=== PATIENT | female | born 2000 | race African-American/Black ===

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

== ENCOUNTER 2021-02-03 00:05 | Emergency (ER) | payer MEDICAID, SELFPAY ==
[2021-02-03 00:06] VITALS: BP 146/82; PULSE 103; RESP 36; TEMP 36.1; O2SAT 100; BMI 39.9
--- NOTE | 2021-02-03 00:14 | EKG12_ITS ---
Test Reason : SOB Blood Pressure : / mmHG Vent. Rate : 094 BPM Atrial Rate : 094 BPM P-R Int : 158 ms QRS Dur : 084 ms QT Int : 372 ms P-R-T Axes : 052 027 016 degrees QTc Int : 465 ms Normal sinus rhythm Normal ECG Confirmed by CHLOE SIDDIQI MD ([id number]), slot editor JESUS LAO ([id number]) on 02/03/2021 11:24:04 AM Referred By: MATHEW Confirmed By:CHLOE SIDDIQI MD
[2021-02-03] MEDS: predniSONE 20 MG Tablet 60 MG PO (00:22)
--- NOTE | 2021-02-03 00:26 | EDS_ITS ---
HPI History of Present Illness Chief Complaint: Cold Sx Informant: patient Onset/Context/Timing Onset: Weeks Context: gradual Timing: Intermittent Quality: Positive for Wheezing Current Severity: Moderate Maximum Severity: Moderate Worsened by: Coughing Relieved by: Albuterol Associated Symptoms cough and green sputum Narrative Narrative: Patient presents with cough, shortness of breath, and pleuritic pain. She states that she has had a cough for about 2 weeks. She states it seems like it was getting worse. She has been having productive sputum. She states that today, she noticed there was scant blood mixed with the sputum. She states that she also had right upper lung pain when she takes a deep breath. She does not think she had fever. She does have underlying history of asthma. The patient was Covid positive in July of this year. PFSH PFS Medical History ADHD Anemia Asthma Chest pain Fatigue Severe headache Shortness of breath Home Medications Celexa 02/03/21 [History Last Taken Unknown] Vistaril 02/03/21 [History Last Taken Unknown] azithromycin 250 mg PO DAILY #4 tablet 02/03/21 [Rx Last Taken Unknown] prednisone 60 mg PO DAILY #15 tablet 02/03/21 [Rx Last Taken Unknown] Allergy/AdvReac Type Severity Reaction Status Date / Time No Known Allergies Allergy Verified 07/27/20 13:49 Family History Mother Lupus Father Sleep apnea Surgical History History of tonsillectomy S/P left knee arthroscopy S/P tonsillectomy Social History Smoking Status: Current every day smoker tobacco type: cigarettes ROS ROS ED Constitutional Constitutional ED: Denies chills or fever(s) Eyes Eyes: Denies blurry vision or change in vision ENT ENT ED: Denies ear pain or sore throat Cardiovascular Cardiovascular: Reports chest pain; Denies palpitations Respiratory/Chest Respiratory/Chest: Reports cough, dyspnea and sputum; Denies dyspnea on exertion Gastrointestinal Gastrointestinal: Denies abdominal pain, nausea or vomiting Genitourinary Genitourinary ED: Denies dysuria or urinary frequency Musculoskeletal Musculoskeletal: Denies arthralgias or myalgias Integumentary Denies rash Neurologic Neurologic: Denies headache(s) or paresthesias Psychiatric Psychiatric: Denies anxiety or depression Endocrine Endocrinology: Denies polydipsia or polyuria Allergic/Immunologic Allergic/Immunologic ED: Denies urticaria EXAM Physical Exam Const Vital Signs: 02/03/21 00:06 02/03/21 00:27 02/03/21 00:31 Temperature 97.0 F L Temperature Source Temporal Pulse Rate 103 H 96 Respiratory Rate 36 H 30 H Respiratory Effort Short of Breath Respiratory Depth Normal Respiratory Pattern Tachypnea Tachypnea Blood Pressure 146/82 H Blood Pressure Mean 103 Pulse Ox 100 Oxygen Delivery Method Room Air Room Air 02/03/21 00:44 Temperature Temperature Source Pulse Rate 92 Respiratory Rate 39 H Respiratory Effort Respiratory Depth Respiratory Pattern Tachypnea Blood Pressure Blood Pressure Mean Pulse Ox Oxygen Delivery Method Positive well nourished and well developed General Appearance ED: well developed HEENT Reports normocephalic, head/scalp atraumatic and moist mucous membranes Eyes PERRL and EOMs intact bilaterally Neck no lymphadenopathy and supple General: Negative for tenderness Chest Wall inspection of chest normal Resp normal respiratory effort Auscultation: wheezes Cardio regular rate, regular rhythm and no murmurs GI normal to inspection, nondistended, normoactive bowel sounds Palpation: Negative for tender, guarding or rebound tenderness present Back/Spine no CVA tenderness Cervical Spine: Negative for cervical spine tenderness Thoracic Spine / Upper Back: Negative for thoracic spinal tenderness Extremity normal to inspection General Extremety ED: Negative for tenderness Neuro oriented x3 and CN's II-XII intact bilaterally Neuro Narrative: No focal deficits appreciated. Sensorium / Orientation: alert Psych mental status grossly normal Skin no rashes or lesions noted, no wounds and skin turgor normal MDM MDM MDM Narrative Medical decision making narrative: Patient presents with cough shortness of breath. She does have diffuse wheezing in all lung seth. EKG was obtained on arrival. It was sinus rhythm. There is normal axis and intervals. There is no acute ischemic change. I did obtain a D-dimer given the patient's tachycardia and pleuritic pain. This was negative. She does have a mild leukocytosis. Chest x-ray does not show evidence of a focal infiltrative process. With her persistent symptoms and history of underlying lung disease, I am going to treat her with Zithromax. She is given her first dose here. She will be kept on prednisone. The patient will be discharged home. Impression 1. Acute bronchitis with bronchospasm Lab Data Attestation: I reviewed the patient's lab results. Labs: Laboratory Results - last 24 hr 02/03/21 02/03/21 02/03/21 00:25 00:25 00:25 WBC 12.3 H RBC 5.52 H Hgb 12.5 Hct 40.3 MCV 73.0 L MCH 22.6 L MCHC 31.0 L RDW Std Deviation 41.5 RDW Coeff of Nancy 15.9 H Plt Count 309 MPV 9.7 Immature Gran % (Auto) 0.500 Neut % (Auto) 53.6 Lymph % (Auto) 37.9 [place] % (Auto) 6.0 Eos % (Auto) 1.5 Baso % (Auto) 0.5 Absolute Neuts (auto) 6.6 Absolute Lymphs (auto) 4.64 H Nucleated RBC % 0 D-Dimer Quant (PE/DVT) 0.34 Sodium 140 Potassium 3.7 Chloride 106 Carbon Dioxide 27.0 Anion Gap 7 BUN 10 Creatinine 0.70 Estim Creat Clear Calc 135.09 Est GFR (MDRD) Af Amer 139 Est GFR (MDRD) Non-Af 115 BUN/Creatinine Ratio 14.3 Glucose 90 Calcium 8.5 Radiography Chest X-Ray - ED: 1 View, Read by ED Physician, Unchanged, Heart, Lungs, Mediastinum, Bony Structures and No Infiltrates Discharge Plan Triage Chief Complaint: Cold Sx ED Provider: Cesar Thompson Dx/Rx/DC Orders Instructions: ED Bronchitis with Wheezing (Adult) Prescriptions: New azithromycin [azithromycin] 250 MG tablet 250 mg PO DAILY Qty: 4 RF: 0 prednisone 20 MG tablet 60 mg PO DAILY Qty: 15 RF: 0 No Action Celexa RF: 0 Vistaril RF: 0 Primary Care Provider: NOT,DEFINED Referrals: NOT,DEFINED [Primary Care Provider] -
[2021-02-03 00:27] VITALS: O2SAT 100
--- NOTE | 2021-02-03 00:30 | RAD_ITS ---
STUDY: X-RAY CHEST REASON FOR EXAM: Female, 20 years old. cough TECHNIQUE: Single AP portable view of the chest. COMPARISON: 04/13/2020. FINDINGS: The lungs are clear and expanded. There is no demonstrated pleural abnormality. Normal size heart. Normal mediastinum and dot. Normal visualized pulmonary arteries. Normal visualized aortic arch and descending thoracic aorta. Normal visualized thoracic spine. Normal visualized ribs, clavicles, and shoulders. There is no demonstrated abnormality of the visualized soft tissue structures of the upper abdomen. RAD/Chest 1 View (Portable) IMPRESSION: Normal x-ray examination of the chest. Electronically Signed: Raisa Ceron MD at 1:02 EDT , Service support ,
[2021-02-03 00:31] VITALS: PULSE 96; RESP 30
[2021-02-03] MEDS: Ipratropium/Albuterol Sulfate 3 ML AMPUL.NEB INHALATION (00:31)
[2021-02-03 00:36] LABS: Absolute Lymphocyte Count 4.64 X10^3/uL (0.83-4.51); Absolute Neutrophil Count 6.6 X10^3/uL (2.0-7.7); Basophil# 0.06 X10^3/uL; Basophil% 0.5 % (0-1); Eosinophil# 0.18 X10^3/uL; Eosinophils% 1.5 % (0-5); Hematocrit 40.3 % (37-47); Hemoglobin 12.5 g/dL (12.0-15.0); Lymphocyte # 4.64 X10^3/ul (0.83-4.51); Lymphocyte % 37.9 % (19-41); Mean Corpuscular Hgb 22.6 pg (27.0-32.0); Mean Platelet Vol. 9.7 fl (6.2-12.0); Monocyte# 0.74 X10^3/uL; NRBC Flagged by Analyzer 0 % (0-5); Neutrophil # 6.57 X10^3/uL (2.7-7.7); Neutrophil % 53.6 % (47-70); Platelet Count 309 K/mm3 (150-450); RBC Distribution Width CV 15.9 % (11.6-14.6); RBC Distribution Width SD 41.5 fl (35.1-43.9); Red Blood Count 5.52 M/mm3 (4.2-5.4); White Blood Count 12.3 K/mm3 (4.4-11.0)
[2021-02-03] MEDS: Albuterol 2.5 MG/3 ML VIAL.NEB. INHALATION ×3 (00:43→00:46)
[2021-02-03 00:44] VITALS: PULSE 97; RESP 23
[2021-02-03 00:48] LABS: D-Dimer Quantitative (DVT/PE) 0.34 FEU/ug/m (0.27-0.49)
[2021-02-03 00:49] LABS: Anion Gap 7 (5-15); BUN 10 mg/dL (7-18); BUN/Creat Ratio 14.3 RATIO (10-20); Calcium,Total 8.5 mg/dL (8.5-10.1); Chloride 106 mmol/L (98-107); EST Glomerular Filtration Rate 115 mL/min (>60); Est Glom Filt Rate - Afr Amer 139 mL/min (>60); Estimated Creatinine Clearance 135.09 ml/min; Glucose 90 mg/dL (74-106); Potassium 3.7 mmol/L (3.5-5.1); Sodium Level 140 mmol/L (136-145)
[2021-02-03 01:00] LABS: Internal QC Validated? YES +Cl - CLEAR BKGD; Pregnancy, Serum, hCG Quali. NEGATIVE Negative
[2021-02-03] MEDS: Azithromycin 250 MG Tablet 500 MG PO (01:08)
[2021-02-03 01:11] VITALS: BP 145/74; PULSE 90; RESP 26; O2SAT 98
== END 2021-02-03 01:53 | disposition home or self-care (01) ==
LOC: ED 01:15
PROVIDERS: Emergency Provider Emergency Medicine
DX: J20.9 Acute bronchitis, unspecified (principal); F17.210 Nicotine dependence, cigarettes, uncomplicated; F90.9 Attention-deficit hyperactivity disorder, unspecified type; Z86.16 Personal history of COVID-19
CPT/HCPCS: 71045; 80048; 84703; 85025; 85379; 93005; 94640; 99285; A4216

== ENCOUNTER 2021-02-26 23:27 | Emergency (ER) | payer MEDICAID, SELFPAY ==
[2021-02-26 23:28] VITALS: BP 153/91; PULSE 100; RESP 18; TEMP 36.6; O2SAT 99; BMI 36.9
--- NOTE | 2021-02-27 | ED.VIS.FEGU ---
HPI HPI - Female History of Present Illness Chief Complaint: Complaint Informant: patient Narrative Narrative: Patient is a 20-year-old female who presents to the emergency department for urinary frequency and dysuria. She is concerned that she is also . She states that she is taken 2 tests and they were inconclusive. Her last menstrual period was January 22. She states she is very regular. She is attempted to get . She denies any abdominal pain. No back pain. No fevers or chills. No nausea vomiting. She has not been taking anything for her symptoms. No known aggravating relieving factors. Patient does not take medications for anything. She has a history of one that ended in miscarriage. [facility] Medical History (Updated 02/27/21 @ 00:[address] Zhao Orta DO) ADHD Anemia Asthma Chest pain Fatigue Severe headache Shortness of breath Home Medications Celexa 02/03/21 [History Last Taken Unknown] Vistaril 02/03/21 [History Last Taken Unknown] azithromycin 250 mg PO DAILY #4 tablet 02/03/21 [Rx Last Taken Unknown] prednisone 60 mg PO DAILY #15 tablet 02/03/21 [Rx Last Taken Unknown] cephalexin 500 mg PO BID 7 Days #14 cap 02/27/21 [Rx Last Taken Unknown] Allergy/AdvReac Type Severity Reaction Status Date / Time No Known Allergies Allergy Verified 02/26/21 23:30 Family History Mother Lupus Father Sleep apnea Surgical History History of tonsillectomy S/P left knee arthroscopy S/P tonsillectomy Social History Smoking Status: Current every day smoker tobacco type: cigarettes ROS ROS ED Constitutional Constitutional ED: Denies chills or fever(s) Eyes Eyes: Denies change in vision ENT ENT ED: Denies epistaxis or rhinorrhea Cardiovascular Cardiovascular: Denies chest pain or palpitations Respiratory/Chest Respiratory/Chest: Denies cough, dyspnea or dyspnea on exertion Gastrointestinal Gastrointestinal: Denies abdominal pain, diarrhea, nausea or vomiting Genitourinary Genitourinary ED: Reports dysuria and urinary frequency; Denies hematuria Musculoskeletal Musculoskeletal: Denies back pain or neck pain Integumentary Denies rash Neurologic Neurologic: Denies dizziness, headache(s) or weakness EXAM Physical Exam Const Vital Signs: 02/26/21 23:28 Temperature 97.9 F Temperature Source Temporal Pulse Rate 100 Respiratory Rate 18 Blood Pressure 153/91 H Blood Pressure Mean 111 Pulse Ox 99 Oxygen Delivery Method Room Air Positive well nourished and well developed General Appearance ED: well developed and NAD HEENT Reports normocephalic, head/scalp atraumatic and moist mucous membranes Eyes PERRL and EOMs intact bilaterally Neck supple General: Negative for tenderness Resp normal respiratory effort and clear to auscultation bilaterally Auscultation: Negative for rales, rhonchi or wheezes Cardio regular rate, regular rhythm and no murmurs GI normal to inspection, nondistended, normoactive bowel sounds and non-tender Palpation: soft; Negative for guarding or rebound tenderness present Back/Spine no CVA tenderness Extremity normal to inspection General Extremety ED: Negative for edema or tenderness General Extremity: Negative for edema Neuro no sensory deficits noted Sensorium / Orientation: alert Motor Exam: strength 5/5 throughout Psych mental status grossly normal Skin no rashes or lesions noted MDM MDM MDM Narrative Medical decision making narrative: Patient presents to the emergency department for urinary frequency and dysuria. She also had a inconclusive test and would like this repeated. On arrival to the ED she is mildly hypertensive otherwise normal vital signs. She is in no acute distress. No systemic symptoms. Will check urinalysis as well as urine test. Patient's urine test was negative. She does have bacteria, leukocyte esterase as well as a few white blood cells. We will treat this as she is symptomatic. She is given first dose of Keflex here. Sent home with a prescription for this. She is given referral for PCP. Return precautions reviewed. She understands and is agreeable with this plan. Lab Data Labs: Laboratory Results - last 24 hr 02/26/21 Unknown Urine Color Yellow Urine Clarity Clear Urine pH 6.0 Ur Specific Curtis 1.025 Urine Protein 15 H Urine Glucose (UA) Normal Urine Ketones Negative Urine Occult Blood Negative Urine Nitrite Negative Urine Bilirubin Negative Urine Urobilinogen 1 H Ur Leukocyte Esterase 25 H Urine RBC 0-5 SEEN Urine WBC 5-10 SEEN Ur Squamous Epith Cells 0-5 SEEN Ur Transition Epith Cell 0-5 SEEN Amorphous Sediment RARE Urine Bacteria 1+ Urine Mucus 2+ Urine Test Negative Discharge Plan Triage Chief Complaint: Complaint ED Provider: Zhao Orta Dx/Rx/DC Orders Clinical Impression: UTI (urinary tract infection) Instructions: Urinary Tract Infections in Women Prescriptions: New cephalexin 500 mg capsule 500 mg PO BID 7 Days Qty: 14 RF: 0 No Action Celexa RF: 0 Vistaril RF: 0 azithromycin [azithromycin] 250 MG tablet 250 mg PO DAILY Qty: 4 RF: 0 prednisone 20 MG tablet 60 mg PO DAILY Qty: 15 RF: 0 Primary Care Provider: Care Physician,No Primary Referrals: Vincenzo Bobby MD [NON-STAFF] - 3-5 Days Care Physician,No Primary [Primary Care Provider] - Disposition Disposition: Home, Self Care
[2021-02-27 00:03] LABS: Color, Urine Yellow (Yellow); Glucose, Dipstick Normal (Normal); Ketone-Dipstick Negative (Negative); Leukocyte Esterase-Dipstick 25 /ul (Negative); Nitrite-Dipstick Negative (Negative); Occult Blood-Urine Negative /ul (Negative); Protein-Dipstick 15 mg/dl (Negative); Specific Gravity, Urine 1.025 (1.002-1.030); Urine Bilirubin Dipstick Negative (Negative); Urine Clarity Clear (Clear); Urine Urobilinogen 1 mg/dl (Normal)
[2021-02-27 00:08] LABS: Internal QC Validated? YES +Cl - CLEAR BKGD; Pregnancy, Urine Negative Negative
[2021-02-27 00:18] LABS: Red Blood Cells-Urine 0-5 SEEN /hpf (0-5); Squamous Epithelial Cells - UA 0-5 SEEN /hpf (5-10); Transitional Epithelial - Ur 0-5 SEEN /hpf (0-5); White Blood Cells 5-10 SEEN /hpf (0-5)
[2021-02-27 00:19] LABS: Amorphous Sediment RARE; Bacteria 1+ /hpf (None Seen); Mucous, Urine 2+ /hpf (<or=2+)
[2021-02-27] MEDS: Cephalexin 250 MG Capsule 500 MG PO (00:34)
== END 2021-02-27 00:35 | disposition home or self-care (01) ==
PROVIDERS: Emergency Provider Emergency Medicine
DX: N39.0 Urinary tract infection, site not specified (principal); F17.210 Nicotine dependence, cigarettes, uncomplicated; D64.9 Anemia, unspecified; F90.9 Attention-deficit hyperactivity disorder, unspecified type; J45.909 Unspecified asthma, uncomplicated; Z79.52 Long term (current) use of systemic steroids
CPT/HCPCS: 81001; 81025; 99283

== ENCOUNTER 2021-04-29 23:26 | Emergency (ER) | payer MEDICAID, SELFPAY ==
[2021-04-29 23:27] VITALS: BP 133/75; PULSE 120; RESP 18; TEMP 36.4; O2SAT 99; BMI 38.4
== END 2021-04-30 00:43 ==
LOC: ED 04-30 02:24
DX: R06.02 Shortness of breath (principal); R51.9 Headache, unspecified; J02.9 Acute pharyngitis, unspecified

== ENCOUNTER → 2021-05-23 17:20 | Outpatient (CLI) | payer MEDICAID, SELFPAY ==
[2021-05-23 17:49] LABS: Amphetamine Urine VISTA NEGATIVE (<1000 ng/mL); Barbiturate Urine VISTA NEGATIVE (< 200 ng/mL); Benzodiazepine Urine VISTA NEGATIVE (< 200 ng/mL); Cocaine Urine VISTA NEGATIVE (< 300 ng/mL); Ecstacy Urine VISTA NEGATIVE (< 500 ng/mL); Methadone Urine VISTA NEGATIVE (< 300 ng/mL); PCP Urine VISTA NEGATIVE (< 25 ng/mL); THC Urine VISTA POSITIVE (< 50 ng/mL); Vista UDS pH Range 5
[2021-05-26 22:06] LABS: Chlamydia By Nucleic Acid AMP Negative (Negative)
[2021-05-27 07:55] LABS: Gonococcus By Nucleic Acid AMP Negative (Negative)
== END ==
PROVIDERS: Referring Provider Obstetrics & Gynecology; Visit Provider Obstetrics & Gynecology
DX: Z34.90 Encounter for supervision of normal pregnancy, unspecified, unspecified trimester (principal)
CPT/HCPCS: 80307; 87086; 87088; 87491; 87591

== ENCOUNTER → 2021-06-12 11:00 | Outpatient (CLI) | payer MEDICAID, SELFPAY ==
[2021-06-12 12:05] LABS: NATERA MAILED SPECIMEN
== END ==
PROVIDERS: Referring Provider Obstetrics & Gynecology; Visit Provider Obstetrics & Gynecology
DX: Z34.81 Encounter for supervision of other normal pregnancy, first trimester (principal)
CPT/HCPCS: 36415

== ENCOUNTER → 2021-06-20 14:36 | Outpatient (CLI) | payer MEDICAID, SELFPAY ==
[2021-06-20 15:46] LABS: Absolute Lymphocyte Count 3.44 X10^3/uL (0.83-4.51); Absolute Neutrophil Count 5.6 X10^3/uL (2.0-7.7); Basophil# 0.04 X10^3/uL; Basophil% 0.4 % (0-1); Eosinophil# 0.08 X10^3/uL; Eosinophils% 0.8 % (0-5); Hematocrit 35.9 % (37-47); Hemoglobin 11.6 g/dL (12.0-15.0); Lymphocyte # 3.44 X10^3/ul (0.83-4.51); Lymphocyte % 35.1 % (19-41); Mean Corp Hgb Conc 32.3 g/dL (32-36); Mean Corpuscular Hgb 23.3 pg (27.0-32.0); Mean Corpuscular Volume 72.2 fL (81-99); Mean Platelet Vol. 10.4 fl (6.2-12.0); Monocyte# 0.61 X10^3/uL; Monocyte% 6.2 % (0-10); NRBC Flagged by Analyzer 0 % (0-5); Neutrophil # 5.61 X10^3/uL (2.7-7.7); Neutrophil % 57.3 % (47-70); Platelet Count 273 K/mm3 (150-450); RBC Distribution Width CV 16.2 % (11.6-14.6); RBC Distribution Width SD 41.5 fl (35.1-43.9); Red Blood Count 4.97 M/mm3 (4.2-5.4); White Blood Count 9.8 K/mm3 (4.4-11.0)
[2021-06-20 15:54] LABS: NATERA MAILED SPECIMEN
[2021-06-20 16:20] LABS: Glucose Challenge Gest 1H 50g 79 mg/dL (70-140)
[2021-06-23 09:43] LABS: HIV - WCH Non-Reactive (Nonreactive); Hepatitis B Surface Antigen Non-Reactive (Nonreactive); Hepatitis C Antibody Non-Reactive (Nonreactive); Rubella IgG Reactive (Nonreactive); Syphilis Antibodies Non-reactive
== END ==
PROVIDERS: Obstetrics & Gynecology; Visit Provider Obstetrics & Gynecology
DX: Z34.81 Encounter for supervision of other normal pregnancy, first trimester (principal); Z31.430 Encounter of female for testing for genetic disease carrier status for procreative management
CPT/HCPCS: 36415; 82950; 83021; 85025; 85660; 86703; 86762; 86780; 86803; 86850; 86900; 86901; 87340

== ENCOUNTER 2021-07-27 16:45 | Emergency (ER) | payer MEDICAID, SELFPAY ==
[2021-07-27 16:46] VITALS: BP 111/63; PULSE 91; RESP 18; TEMP 36.9; O2SAT 99; BMI 45.6
[2021-07-27 18:36] LABS: Absolute Lymphocyte Count 3.33 X10^3/uL (0.83-4.51); Absolute Neutrophil Count 8.4 X10^3/uL (2.0-7.7); Basophil# 0.02 X10^3/uL; Basophil% 0.2 % (0-1); Eosinophil# 0.07 X10^3/uL; Eosinophils% 0.6 % (0-5); Hematocrit 35.5 % (37-47); Hemoglobin 11.7 g/dL (12.0-15.0); Lymphocyte # 3.33 X10^3/ul (0.83-4.51); Lymphocyte % 26.4 % (19-41); Mean Corpuscular Hgb 23.9 pg (27.0-32.0); Mean Corpuscular Volume 72.6 fL (81-99); Monocyte# 0.75 X10^3/uL; NRBC Flagged by Analyzer 0 % (0-5); Neutrophil # 8.38 X10^3/uL (2.7-7.7); Neutrophil % 66.4 % (47-70); Platelet Count 250 K/mm3 (150-450); RBC Distribution Width CV 15.3 % (11.6-14.6); RBC Distribution Width SD 39.8 fl (35.1-43.9); Red Blood Count 4.89 M/mm3 (4.2-5.4); White Blood Count 12.6 K/mm3 (4.4-11.0)
[2021-07-27 18:48] LABS: ALB/GLOB Ratio 0.7 RATIO (0.9-2.4); AST(SGOT) 8 U/L (15-37); Alanine Aminotransfer ALT/SGPT 21 U/L (13-56); Albumin, Serum 3.1 g/dL (3.2-5.0); Alkaline Phosphatase 60 U/L (45-117); Anion Gap 8 (5-15); BUN 5 mg/dL (7-18); BUN/Creat Ratio 8.9 RATIO (10-20); Calcium,Total 8.6 mg/dL (8.5-10.1); Chloride 108 mmol/L (98-107); Creatinine, Serum 0.56 mg/dL (0.55-1.02); EST Glomerular Filtration Rate 146 mL/min (>60); Est Glom Filt Rate - Afr Amer 176 mL/min (>60); Estimated Creatinine Clearance 168.87 ml/min; Globulin 4.2 g/dL (2.2-4.2); Glucose 75 mg/dL (74-106); Potassium 3.6 mmol/L (3.5-5.1); Protein, Total 7.3 g/dL (6.4-8.2); Sodium Level 141 mmol/L (136-145)
--- NOTE | 2021-07-27 20:15 | EDS_ITS ---
HPI History of Present Illness Chief Complaint: Dizziness Detail of Chief Complaint: Dizziness, which patient defines as lightheadedness Informant: patient Onset/Context/Timing Onset: Today (Early this morning) and Yesterday (2 episodes last evening) Context: Sudden Onset Timing: Intermittent (10 to 20 minutes) Quality: Lightheaded, change in vision, tingling in extremities Location: Residents Current Severity: Gone Maximum Severity: Moderate Worsened by: Unknown Relieved by: Improves if patient is in supine position or sitting on floor Associated Symptoms Associated Symptoms: None Narrative Narrative: Patient is a 20-year-old G1, P0 Ab0 female who is in her second trimester and presents after discussion with her OB. She had 2 epi sodes where she became lightheaded and lasted 10 to 20 minutes. She states that she felt nauseous, warm lightheaded. She sat down so she would not pass out. She states her vision was static. She then states she looked at her phone he could see the clock and not how she knows how long it lasted. The episode earlier this morning lasted 10 minutes. She denies fever, chills night sweats. She denies double vision. She denies loss of hearing. She states she had bilateral ringing of her ears. She denied rhinorrhea, epistaxis postnasal drainage or sore throat. She denied chest pain. She denied shortness of breath. She denied vomiting or diarrhea. She denied black or maroon-colored stool. She has no urologic symptoms. Prior similar symptoms: No Recent Illness/Hospitalization: No [facility] Medical History ADHD Anemia Asthma Chest pain Fatigue Severe headache Shortness of breath Home Medications vitamin no.76-iron,carbonyl 29 mg iron-folic acid 1 mg tablet 1 tab PO DAILY #30 tab 05/13/21 [Rx Last Taken Unknown] promethazine 12.5 mg tablet 12.5 mg PO TID PRN #30 tab 05/13/21 [Rx Last Taken Unknown] ondansetron HCl 4 mg tablet 4 mg PO Q4H #60 tab 05/23/21 [Rx Last Taken Unknown] ferrous sulfate 142 mg (45 mg iron) tablet,extended release 142 mg PO DAILY 30 Days #30 tab 07/16/21 [Rx Last Taken Unknown] cephalexin 500 mg PO Q6 #28 capsule 07/27/21 [Rx Last Taken Unknown] Allergy/AdvReac Type Severity Reaction Status Date / Time No Known Allergies Allergy Verified 07/27/21 16:46 Family History Mother Lupus Sjogrens syndrome Father Sleep apnea Grandfather Brain cancer Seizures Grandmother COPD (chronic obstructive pulmonary disease) Leukemia Surgical History History of tonsillectomy S/P left knee arthroscopy S/P tonsillectomy Social History household members: family current occupational status: unemployed pets and animals: Yes Smoking Status: Former smoker second hand exposure: Yes alcohol intake: current substance use type: marijuana seatbelt use: always do you feel safe at home: Yes additional social history: BF- Deauje Artiflex ROS ROS ED Constitutional Constitutional ED: Denies chills, fever(s), subjective, sweats or weight loss Eyes Eyes: Denies blurry vision, change in vision or diplopia ENT ENT ED: Reports other Details: Tinnitus ; Denies ear pain, rhinorrhea or sore throat Cardiovascular Cardiovascular: Denies chest pain, orthopnea, palpitations or racing heartbeat Respiratory/Chest Respiratory/Chest: Denies cough, dyspnea, dyspnea on exertion or orthopnea Gastrointestinal Gastrointestinal: Reports nausea; Denies abdominal pain, diarrhea, melena or vomiting Genitourinary Genitourinary ED: Denies dysuria, hematuria or urinary frequency Musculoskeletal Musculoskeletal: Denies arthralgias, back pain, myalgias or neck pain Integumentary Denies rash Neurologic Neurologic: Reports paresthesias and weakness; Denies headache(s) Endocrine Endocrinology: Denies polydipsia, polyphagia or polyuria EXAM Physical Exam Const Vital Signs: 07/27/21 16:46 07/27/21 17:54 07/27/21 20:27 Temperature 98.4 F Temperature Source Temporal Pulse Rate 91 Pulse Rate [Lying] 88 Pulse Rate [Sitting] 85 Pulse Rate [Standing] 110 H Respiratory Rate 18 Respiratory Effort Normal Blood Pressure 111/63 Blood Pressure [Lying] 126/66 H Blood Pressure [Sitting] 128/84 H Blood Pressure [Standing] 126/77 H Blood Pressure Mean 79 Blood Pressure Mean [Lying] 86 Blood Pressure Mean [Sitting] 98 Blood Pressure Mean [Standing] 93 Pulse Ox 99 Oxygen Delivery Method Room Air Positive well nourished, well developed and obese General Appearance ED: well developed and NAD; Negative for cyanotic or diaphoretic Nutritional Appearance: obese HEENT Reports TM's clear and moist mucous membranes Negative for trauma or tenderness Tympanic Membrane ED: Yes TM's clear Eyes PERRL and EOMs intact bilaterally General Eye ED: Negative for pale conjunctiva or scleral icterus Neck no lymphadenopathy, supple and no JVD General: Negative for tenderness Resp normal respiratory effort and clear to auscultation bilaterally Cardio regular rate, regular rhythm, S1 normal heart sound, S2 normal heart sound and no murmurs GI normal to inspection, nondistended, normoactive bowel sounds, non-tender and non-distended Palpation: soft Back/Spine no CVA tenderness General Back: CVA tenderness Cervical Spine: Negative for cervical spine tenderness Thoracic Spine / Upper Back: Negative for thoracic spinal tenderness or paraspinal muscle tenderness Extremity normal to inspection General Extremety ED: Negative for edema or tenderness General Extremity: Negative for edema Neuro oriented x3 and CN's II-XII intact bilaterally Sensorium / Orientation: alert Motor Exam: strength 5/5 throughout Psych mental status grossly normal Skin no rashes or lesions noted and no wounds MDM MDM MDM Narrative Medical decision making narrative: Patient with symptoms suggestive of presyncopal/vasovagal. This may be due to dehydration, and poor caloric intake. On certain regarding this patient's symptoms of vision looking static which she described as the TV screen is all squiggly. Lab Data Attestation: I reviewed the patient's lab results. Lab results narrative: Urine reveals bacteria. Since she is culture was sent and she was started on cephalexin. Labs: Laboratory Results - last 24 hr 07/27/21 07/27/21 07/27/21 18:20 18:20 20:39 WBC 12.6 H RBC 4.89 Hgb 11.7 L Hct 35.5 L MCV 72.6 L MCH 23.9 L MCHC 33.0 RDW Std Deviation 39.8 RDW Coeff of Nancy 15.3 H Plt Count 250 MPV 10.0 Immature Gran % (Auto) 0.400 Neut % (Auto) 66.4 Lymph % (Auto) 26.4 [place] % (Auto) 6.0 Eos % (Auto) 0.6 Baso % (Auto) 0.2 Absolute Neuts (auto) 8.4 H Absolute Lymphs (auto) 3.33 Nucleated RBC % 0 Sodium 141 Potassium 3.6 Chloride 108 H Carbon Dioxide 25.0 Anion Gap 8 BUN 5 L Creatinine 0.56 Estim Creat Clear Calc 168.87 Est GFR (MDRD) Af Amer 176 Est GFR (MDRD) Non-Af 146 BUN/Creatinine Ratio 8.9 L Glucose 75 Calcium 8.6 Total Bilirubin 0.10 L AST 8 L ALT 21 Alkaline Phosphatase 60 Total Protein 7.3 Albumin 3.1 L Globulin 4.2 Albumin/Globulin Ratio 0.7 L Urine Color Yellow Urine Clarity Clear Urine pH 7.0 Ur Specific [place] 1.015 Urine Protein 15 H Urine Glucose (UA) Normal Urine Ketones 5 H Urine Occult Blood Negative Urine Nitrite Negative Urine Bilirubin Negative Urine Urobilinogen Normal Ur Leukocyte Esterase 25 H Urine RBC 0 SEEN Urine WBC 0-5 SEEN Ur Squamous Epith Cells 0-5 SEEN Urine Bacteria 2+ Urine Mucus 0 SEEN Discharge Plan Triage Chief Complaint: Dizziness ED Provider: Denys Boyle Dx/Rx/DC Orders Clinical Impression: Near syncope, Orthostatic dizziness, Urinary tract infection affecting care of mother in second trimester, antepartum Instructions: Urinary Tract Infections in Women, ED Dizziness, Uncertain Cause, ED Near-Fainting, Uncertain Cause Prescriptions: New cephalexin [cephalexin] 500 MG capsule 500 mg PO Q6 Qty: 28 RF: 0 No Action promethazine 12.5 mg tablet 12.5 mg PO TID PRN (Reason: nausea and vomiting) Qty: 30 RF: 1 PNV 29-1 29 mg iron- 1 mg tablet 1 tab PO DAILY Qty: 30 RF: 12 ondansetron HCl [Zofran] 4 mg tablet 4 mg PO Q4H Qty: 60 RF: 3 Slow Fe 142 mg (45 mg iron) tablet extended release 142 mg PO DAILY 30 Days Qty: 30 RF: 6 Primary Care Provider: Care Physician,No Primary Referrals: Care Physician,No Primary [Primary Care Provider] - Doctor,Your [STAFF PHYSICIAN] - 3-5 Days Disposition Disposition: Home, Self Care
[2021-07-27 20:27] VITALS: BP 126/66; BP 126/77; BP 128/84; PULSE 110; PULSE 85; PULSE 88
[2021-07-27 20:49] LABS: Mucous, Urine 0 SEEN /hpf (<or=2+); Red Blood Cells-Urine 0 SEEN /hpf (0-5)
[2021-07-27 21:05] LABS: Color, Urine Yellow (Yellow); Glucose, Dipstick Normal (Normal); Ketone-Dipstick 5 mg/dl (Negative); Leukocyte Esterase-Dipstick 25 /ul (Negative); Nitrite-Dipstick Negative (Negative); Occult Blood-Urine Negative /ul (Negative); Protein-Dipstick 15 mg/dl (Negative); Specific Gravity, Urine 1.015 (1.002-1.030); Urine Bilirubin Dipstick Negative (Negative); Urine Clarity Clear (Clear); Urine Urobilinogen Normal (Normal)
[2021-07-27 21:09] LABS: Bacteria 2+ /hpf (None Seen); Squamous Epithelial Cells - UA 0-5 SEEN /hpf (5-10); White Blood Cells 0-5 SEEN /hpf (0-5)
[2021-07-27 22:13] VITALS: BP 124/86; PULSE 89; RESP 18; O2SAT 97
[2021-07-27] MEDS: Cephalexin 250 MG Capsule 500 MG PO (22:19)
== END 2021-07-27 22:22 | disposition home or self-care (01) ==
PROVIDERS: Emergency Provider Emergency Medicine
DX: O99.891 Other specified diseases and conditions complicating pregnancy (principal); R42 Dizziness and giddiness; R55 Syncope and collapse; O23.42 Unspecified infection of urinary tract in pregnancy, second trimester; N39.0 Urinary tract infection, site not specified; O99.212 Obesity complicating pregnancy, second trimester; E66.9 Obesity, unspecified; Z87.891 Personal history of nicotine dependence; Z56.0 Unemployment, unspecified; Z3A.00 Weeks of gestation of pregnancy not specified
CPT/HCPCS: 80053; 81001; 85025; 87086; 87088; 96360; 99284; A4216

== ENCOUNTER 2021-08-21 15:00 | Emergency (ER) | payer MEDICAID, SELFPAY ==
[2021-08-21 15:01] VITALS: BP 140/86; PULSE 109; RESP 20; TEMP 36.6; O2SAT 99; BMI 38.4
--- NOTE | 2021-08-21 15:32 | EX.ED.VIS.UR ---
HPI HPI - URI History of Present Illness Chief Complaint: Shortness of Breath Informant: patient Onset/Context/Timing Onset: Days (4) Context: Gradual Onset Timing: Continuous Quality: cough, malaise, headache Current Severity: Moderate Maximum Severity: Moderate Worsened by: - (coughing) Relieved by: - (nothing) Associated Symptoms Associated Symptoms: Positive for Nasal Congestion, Headache, Myalgias, Shortness of Breath (wheezing/asthma) and Nonproductive cough; Negative for Sinus Pressure, Nausea, Vomiting, Diarrhea, Chest Pain and Hemoptysis Narrative Narrative: 20-year-old female over 20 weeks without any recent issues with her , 4 days respiratory illness including fevers chills, 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 She has a history of asthma and has had some wheezing, she states she is using her albuterol nebulizer machine treatments and it does not seem like it is helping her wheezing that much. She also is having trouble breathing because she is so congested. She denies any sinus pain/pressure. ROS ROS ED Constitutional Constitutional ED: Reports body ache(s), chills, fatigue, fever(s), headache(s) and malaise Eyes Eyes: Denies change in vision or diplopia ENT ENT ED: Reports nasal congestion and rhinorrhea; Denies sore throat Cardiovascular Cardiovascular: Denies chest pain or palpitations Respiratory/Chest Respiratory/Chest: Reports as per HPI, cough, dyspnea and wheezing Gastrointestinal Gastrointestinal: Denies abdominal pain, diarrhea, nausea or vomiting Genitourinary Genitourinary ED: Denies dysuria or hematuria Musculoskeletal Musculoskeletal: Denies back pain or neck pain Integumentary Denies abscess or rash Neurologic Neurologic: Reports headache(s); Denies paresthesias or weakness Psychiatric Psychiatric: Denies anxiety or suicidal thoughts [facility] Medical History ADHD Anemia Asthma Chest pain Fatigue Severe headache Shortness of breath Home Medications vitamin no.76-iron,carbonyl 29 mg iron-folic acid 1 mg tablet 1 tab PO DAILY #30 tab 05/13/21 [Rx Last Taken Unknown] promethazine 12.5 mg tablet 12.5 mg PO TID PRN #30 tab 05/13/21 [Rx Last Taken Unknown] ondansetron HCl 4 mg tablet 4 mg PO Q4H #60 tab 05/23/21 [Rx Last Taken Unknown] ferrous sulfate 142 mg (45 mg iron) tablet,extended release 142 mg PO DAILY 30 Days #30 tab 07/16/21 [Rx Last Taken Unknown] prednisone 40 mg PO DAILY #8 tablet 08/21/21 [Rx Last Taken Unknown] Allergy/AdvReac Type Severity Reaction Status Date / Time No Known Allergies Allergy Verified 08/21/21 15:04 Family History Mother Lupus Sjogrens syndrome Father Sleep apnea Grandfather Brain cancer Seizures Grandmother COPD (chronic obstructive pulmonary disease) Leukemia Surgical History History of tonsillectomy S/P left knee arthroscopy S/P tonsillectomy Social History household members: family current occupational status: unemployed pets and animals: Yes Smoking Status: Former smoker second hand exposure: Yes alcohol intake: current substance use type: marijuana seatbelt use: always do you feel safe at home: Yes additional social history: BF- Deauje Artiflex EXAM Physical Exam Const Vital Signs: 08/21/21 15:01 08/21/21 15:56 Temperature 97.8 F Temperature Source Temporal Pulse Rate 109 H Respiratory Rate 20 H Respiratory Effort Normal Non-Labored Respiratory Depth Normal Respiratory Pattern Normal Blood Pressure 140/86 H Blood Pressure Mean 104 Pulse Ox 99 Oxygen Delivery Method Room Air Room Air Positive well nourished, well developed and obese Constitutional Narrative: Well-appearing, no distress General Appearance ED: well developed and NAD Nutritional Appearance: obese HEENT Reports moist mucous membranes HEENT Narrative: No purulent nasal discharge normocephalic and atraumatic Eyes PERRL and EOMs intact bilaterally Neck full ROM, supple and no meningeal signs Resp normal respiratory effort and clear to auscultation bilaterally Auscultation: Negative for wheezes Cardio regular rate, regular rhythm and no murmurs GI non-tender and non-distended Auscultation: normoactive bowel sounds Palpation: soft Back/Spine no CVA tenderness General Back: other FROM Extremity normal to inspection and no calf tenderness General Extremety ED: Negative for edema, pulses abnormal or tenderness General Extremity: Negative for edema or pulses abnormal Neuro oriented x3, CN's II-XII intact bilaterally and no sensory deficits noted Sensorium / Orientation: awake and alert Motor Exam: strength 5/5 throughout Skin no rashes or lesions noted and no wounds MDM MDM MDM Narrative Medical decision making narrative: Patient's Covid test is positive. Her pulse ox is 99-100% on room air and she is breathing well right now, she does sound audibly congested, and she is not objectively dyspneic. She states she has been wheezing a lot with regards to her asthma, so I will give her a prescription for a 5-day burst of prednisone with the first dose given here, heart tones are to be measured by nursing prior to discharge, and given appropriate Covid discharge instructions, in addition to being referred to monoclonal antibody infusion therapy, which I discussed with her. Her risk factors are asthma, , and obesity. Discharge Plan Triage Chief Complaint: Shortness of Breath ED Provider: Christopher Dunne Dx/Rx/DC Orders Clinical Impression: COVID-19, Second trimester , Asthma exacerbation Instructions: Coronavirus Disease 2019 (COVID-19): Caring for Yourself or Others, ED - COVID Monoclonal AB Infusion ..., Asthma Prescriptions: New prednisone 20 MG tablet 40 mg PO DAILY Qty: 8 RF: 0 No Action promethazine 12.5 mg tablet 12.5 mg PO TID PRN (Reason: nausea and vomiting) Qty: 30 RF: 1 PNV 29-1 29 mg iron- 1 mg tablet 1 tab PO DAILY Qty: 30 RF: 12 ondansetron HCl [Zofran] 4 mg tablet 4 mg PO Q4H Qty: 60 RF: 3 Slow Fe 142 mg (45 mg iron) tablet extended release 142 mg PO DAILY 30 Days Qty: 30 RF: 6 Primary Care Provider: Care Physician,No Primary Referrals: Care Physician,No Primary [Primary Care Provider] - Doctor,Your [STAFF PHYSICIAN] - As Needed Activity Restrictions/Additional Instructions: Try to get a home portable pulse oximeter and closely watch your oxygen levels periodically. If you stay below 90% for more than a minute or so, and/or you are feeling like your breathing is getting worse, return to the emergency department for further evaluation. You are a candidate for monoclonal antibody infusion therapy, see the attached instructions for more information. They will call you concerning when they want you to come to the clinic to get the infusion which is a one-time dose to help protect you from getting more ill and becoming hospitalized with life-threatening illness due to Covid given your risk for worsening. Disposition Disposition: Home, Self Care
[2021-08-21 15:56] VITALS: O2SAT 97
[2021-08-21 17:26] VITALS: BP 134/87; PULSE 99; RESP 18; O2SAT 97
[2021-08-21] MEDS: predniSONE 20 MG Tablet 40 MG PO (17:29)
== END 2021-08-21 17:30 | disposition home or self-care (01) ==
PROVIDERS: Emergency Provider Emergency Medicine; Visit Provider Emergency Medicine
DX: O98.512 Other viral diseases complicating pregnancy, second trimester (principal); U07.1 COVID-19; O99.512 Diseases of the respiratory system complicating pregnancy, second trimester; J45.901 Unspecified asthma with (acute) exacerbation; O99.212 Obesity complicating pregnancy, second trimester; E66.9 Obesity, unspecified; O99.322 Drug use complicating pregnancy, second trimester; F12.90 Cannabis use, unspecified, uncomplicated; Z3A.00 Weeks of gestation of pregnancy not specified; Z87.891 Personal history of nicotine dependence
CPT/HCPCS: 87426; 99282

== ENCOUNTER 2021-08-29 14:57 | Outpatient (CLI) | payer MEDICAID, SELFPAY ==
[2021-08-29 15:30] LABS: Absolute Lymphocyte Count 3.44 X10^3/uL (0.83-4.51); Basophil# 0.02 X10^3/uL; Basophil% 0.2 % (0-1); Eosinophil# 0.08 X10^3/uL; Eosinophils% 0.6 % (0-5); Hematocrit 37.3 % (37-47); Lymphocyte # 3.44 X10^3/ul (0.83-4.51); Lymphocyte % 25.9 % (19-41); Mean Corp Hgb Conc 32.2 g/dL (32-36); Mean Corpuscular Hgb 23.3 pg (27.0-32.0); Mean Corpuscular Volume 72.6 fL (81-99); Monocyte# 0.72 X10^3/uL; Monocyte% 5.4 % (0-10); NRBC Flagged by Analyzer 0 % (0-5); Neutrophil # 8.95 X10^3/uL (2.7-7.7); Neutrophil % 67.4 % (47-70); Platelet Count 263 K/mm3 (150-450); RBC Distribution Width SD 38.9 fl (35.1-43.9); Red Blood Count 5.14 M/mm3 (4.2-5.4); White Blood Count 13.3 K/mm3 (4.4-11.0)
== END 2021-08-29 23:59 | disposition short-term general hospital (02) ==
PROVIDERS: Visit Provider Obstetrics & Gynecology
DX: R10.32 Left lower quadrant pain (principal)
CPT/HCPCS: 36415; 85025; 87086; 87088

== ENCOUNTER 2021-10-30 14:48 | Outpatient (CLI) | payer MEDICAID, SELFPAY ==
[2021-10-30 15:51] LABS: Absolute Lymphocyte Count 2.84 X10^3/uL (0.83-4.51); Absolute Neutrophil Count 9.5 X10^3/uL (2.0-7.7); Basophil# 0.03 X10^3/uL; Basophil% 0.2 % (0-1); Eosinophil# 0.08 X10^3/uL; Eosinophils% 0.6 % (0-5); Hematocrit 34.8 % (37-47); Hemoglobin 11.3 g/dL (12.0-15.0); Lymphocyte # 2.84 X10^3/ul (0.83-4.51); Lymphocyte % 21.6 % (19-41); Mean Corp Hgb Conc 32.5 g/dL (32-36); Mean Corpuscular Hgb 23.6 pg (27.0-32.0); Mean Corpuscular Volume 72.8 fL (81-99); Mean Platelet Vol. 9.9 fl (6.2-12.0); Monocyte# 0.58 X10^3/uL; Monocyte% 4.4 % (0-10); NRBC Flagged by Analyzer 0 % (0-5); Neutrophil # 9.49 X10^3/uL (2.7-7.7); Neutrophil % 72.4 % (47-70); Platelet Count 230 K/mm3 (150-450); RBC Distribution Width CV 14.4 % (11.6-14.6); Red Blood Count 4.78 M/mm3 (4.2-5.4); White Blood Count 13.1 K/mm3 (4.4-11.0)
[2021-10-30 16:09] LABS: Glucose Challenge Gest 1H 50g 135 mg/dL (70-140)
[2021-10-31 10:12] LABS: Syphilis Antibodies Non-reactive
== END 2021-10-30 23:59 | disposition home or self-care (01) ==
LOC: PAVLAB 14:49
PROVIDERS: Referring Provider Nurse Practitioner Women's Health; Visit Provider Nurse Practitioner Women's Health
DX: Z34.02 Encounter for supervision of normal first pregnancy, second trimester (principal); Z3A.23 23 weeks gestation of pregnancy
CPT/HCPCS: 36415; 82950; 85025; 86780

== ENCOUNTER 2021-11-10 11:28 | Outpatient (CLI) | payer MEDICAID, SELFPAY ==
--- NOTE | 2021-11-10 11:32 | US_ITS ---
STUDY: SECOND AND THIRD TRIMESTER OBSTETRICAL ULTRASOUND - LIMITED REASON FOR EXAM: Female, 21 years old growth @ 32 and 36 weeks -- standing order LMP: 03/31/2021. PRIOR ULTRASOUND: None. TECHNIQUE: Transabdominal TECHNICAL QUALITY: Adequate. FINDINGS: There is a single intrauterine fetus. The fetus is in a cephalic presentation. There is demonstrated cardiac activity with a heart rate of 149 bpm. There is a normal amniotic fluid volume. The largest amniotic fluid pocket measures 5.91 cm. The amniotic fluid index (RICK) is 17 cm. The placenta is anterior in location and is not low lying. There are Grade 0 placental changes. The cervix measures 3.7 cm in length. BIOMETRY: BPD: 8.12 cm: 32 weeks, 5 days HC: 29.49 cm: 32 weeks, 5 days AC: 29.58 cm: 33 weeks, 4 days FL: 6.35 cm: 32 weeks, 6 days Age by LMP: 32 weeks, 0 days. IVA by LMP: 01/05/2022. age by current US: 33 weeks, 0 days. IVA by current US: 12/29/2021. Estimated weight: 2133 grams, +/- 31 grams, 77 percentile. US/OB Limited With Biometrics IMPRESSION: Single live uterine gestation with mean gestational age of 33 weeks. Electronically Signed: Manav Zelaya MD at 15:45 EDT ,
== END 2021-11-10 23:59 | disposition home or self-care (01) ==
LOC: US 11:31
PROVIDERS: Referring Provider Nurse Practitioner Women's Health; Visit Provider Nurse Practitioner Women's Health
DX: O98.512 Other viral diseases complicating pregnancy, second trimester (principal); U07.1 COVID-19; Z3A.23 23 weeks gestation of pregnancy
CPT/HCPCS: 76816

== ENCOUNTER 2021-11-12 10:03 | Outpatient (CLI) | payer MEDICAID, SELFPAY ==
[2021-11-12 11:33] LABS: Glucose GTT-Gestation. Fasting 84 mg/dL (<105)
[2021-11-12 12:04] LABS: Glucose GTT-Gestational 1 Hr 153 mg/dL (<190)
[2021-11-12 13:15] LABS: Glucose GTT-Gestational 2 Hr 106 mg/dL (<165)
[2021-11-12 13:53] LABS: Glucose GTT-Gestational 3 Hr 108 L (<145)
== END 2021-11-12 23:59 | disposition home or self-care (01) ==
PROVIDERS: Referring Provider Nurse Practitioner Women's Health; Visit Provider Nurse Practitioner Women's Health
DX: O99.810 Abnormal glucose complicating pregnancy (principal)
CPT/HCPCS: 36415; 82951; 82952

== ENCOUNTER 2021-11-13 13:54 | Outpatient (CLI) | payer MEDICAID, SELFPAY ==
[2021-11-13 11:15] LABS: Amphetamine Urine VISTA NEGATIVE (<1000 ng/mL); Barbiturate Urine VISTA NEGATIVE (< 200 ng/mL); Benzodiazepine Urine VISTA NEGATIVE (< 200 ng/mL); Cocaine Urine VISTA NEGATIVE (< 300 ng/mL); Ecstacy Urine VISTA NEGATIVE (< 500 ng/mL); Methadone Urine VISTA NEGATIVE (< 300 ng/mL); PCP Urine VISTA NEGATIVE (< 25 ng/mL); THC Urine VISTA NEGATIVE (< 50 ng/mL); Vista UDS pH Range 6
== END 2021-11-13 23:59 | disposition home or self-care (01) ==
LOC: LABSPEC 13:56
PROVIDERS: Visit Provider Obstetrics & Gynecology
DX: F12.10 Cannabis abuse, uncomplicated (principal)
CPT/HCPCS: 80307

== ENCOUNTER 2021-11-16 02:05 | Outpatient (CLI) | payer MEDICAID, SELFPAY ==
[2021-11-16 02:13] VITALS: BMI 49.8
[2021-11-16 02:26] VITALS: PULSE 99; O2SAT 98
[2021-11-16 02:27] VITALS: BP 130/70; PULSE 96; TEMP 36.2; O2SAT 98
[2021-11-16] MEDS: Acetaminophen 500 MG Tablet 1000 MG PO (03:34)
[2021-11-16 03:54] VITALS: BP 126/69; PULSE 94; TEMP 36.8; O2SAT 99
--- NOTE | 2021-11-16 07:24 | OB.TRI.PN_ITS ---
Progress Notes Date of Service: 11/16/21 Progress Note: Patient presents for triage evaluation secondary to fall FHT: 140 Moderate variability reactive no decelerations category I tracing [place]: no regular Contractions Assessment and plan: fall no abdominal trauma Reactive NST, reassuring maternal and status patient discharged to home to follow-up a. See problem list details for additional plan information. Charges/Coding Procedures Urinary/Genital [id number]: [id number] non-stress test Interp
== END 2021-11-16 23:59 | disposition home or self-care (01) ==
LOC: WPOUT 02:12 → WP 02:12
PROVIDERS: Visit Provider Obstetrics & Gynecology
DX: Z04.3 Encounter for examination and observation following other accident (principal); W19.XXXA Unspecified fall, initial encounter
CPT/HCPCS: 59025; 59050; 99218; G0378

== ENCOUNTER 2021-11-30 18:48 | Outpatient (CLI) | payer MEDICAID, SELFPAY ==
[2021-11-30 19:18] VITALS: BP 134/71; PULSE 102; TEMP 36.7
[2021-11-30 19:19] VITALS: O2SAT 99
[2021-11-30 19:36] VITALS: BMI 50.2
[2021-11-30 20:42] LABS: Color, Urine Yellow (Yellow); Glucose, Dipstick Normal (Normal); Ketone-Dipstick Negative (Negative); Leukocyte Esterase-Dipstick 25 /ul (Negative); Nitrite-Dipstick Negative (Negative); Occult Blood-Urine Negative /ul (Negative); Protein-Dipstick Negative (Negative); Specific Gravity, Urine 1.015 (1.002-1.030); Urine Bilirubin Dipstick Negative (Negative); Urine Clarity Clear (Clear); Urine Urobilinogen Normal (Normal); Urine pH 6.5 (5.0 - 8.0)
--- NOTE | 2021-12-09 05:23 | OB.TRI.PN ---
Progress Notes Date of Service: 11/30/21 Progress Note: Patient presents for triage evaluation secondary to vaginal bleeding FHT: 135 Moderate variability reactive no decelerations category I tracing [place]: no regular Contractions Assessment and plan: cervix closed no blood present ua WNL threatened labor no labor present, Reactive NST, reassuring maternal and status patient discharged to home to follow-up as scheduled. See problem list details for additional plan information. Laboratory Studies: Laboratory Tests 11/30/21 Range/Units 20:35 Urine Color Yellow (Yellow) Urine Clarity Clear (Clear) Urine pH 6.5 (5.0 - 8.0) Ur Specific [place] 1.015 (1.002-1.030) Urine Protein Negative (Negative) mg/dl Urine Glucose (UA) Normal (Normal) mg/dl Urine Ketones Negative (Negative) mg/dl Urine Occult Blood Negative (Negative) /ul Urine Nitrite Negative (Negative) Urine Bilirubin Negative (Negative) mg/dL Urine Urobilinogen Normal (Normal) mg/dl Ur Leukocyte Esterase 25 H (Negative) /ul Charges/Coding Procedures Urinary/Genital 52xxx-59xxx: 53053-73 non-stress test Interp
== END 2021-11-30 21:03 | disposition home or self-care (01) ==
LOC: WPOUT 18:55 → WP 18:56
PROVIDERS: Visit Provider Obstetrics & Gynecology
DX: O26.90 Pregnancy related conditions, unspecified, unspecified trimester (principal); N93.9 Abnormal uterine and vaginal bleeding, unspecified; Z3A.00 Weeks of gestation of pregnancy not specified
CPT/HCPCS: 59025; 59050; 81002; 87086; 87088; 99218; G0378

== ENCOUNTER 2021-12-03 16:59 | Emergency (ER) | payer MEDICAID, SELFPAY ==
[2021-12-03 17:00] VITALS: BP 139/86; PULSE 112; RESP 19; TEMP 36.7; O2SAT 99; BMI 51.7
--- NOTE | 2021-12-03 17:35 | EDS_ITS ---
HPI History of Present Illness Chief Complaint: Nausea/Vomiting Informant: patient Narrative Narrative: at 36 weeks gestation [address] Valentin Olson presents nausea and vomiting now dry heaving since 8 AM this morning. No diarrhea. Ate Swedish food yesterday with other individuals and no no one is sick. Has eaten this before. Abdominal cramping when she dry heaves none currently. She has not urinated since this morning before symptoms occurred. Denies fevers. Denies alcohol or illicit drug use. However review of records notes history of marijuana abuse. She only currently takes vitamins. Prior similar symptoms: No PFSH PFSH Medical History ADHD Anemia Asthma Chest pain Fatigue Left lower quadrant pain Severe headache Shortness of breath Home Medications famotidine [Pepcid] 20 mg PO DAILY 11/16/21 [History Last Taken 11/30/21 09:00] ondansetron HCl 4 mg PO Q4H 11/16/21 [History Last Taken 11/30/21 16:00] vit,[id number] [PNV 29-1] 1 tab PO DAILY 11/16/21 [History Last Taken 11/29/21 22:00] Allergy/AdvReac Type Severity Reaction Status Date / Time No Known Allergies Allergy Verified 12/03/21 17:02 Family History Mother Lupus Sjogrens syndrome Father Sleep apnea Grandfather Brain cancer Seizures Grandmother COPD (chronic obstructive pulmonary disease) Leukemia Surgical History History of tonsillectomy S/P left knee arthroscopy S/P tonsillectomy Social History household members: family current occupational status: unemployed pets and animals: Yes Smoking Status: Former smoker second hand exposure: Yes alcohol intake: current substance use type: marijuana seatbelt use: always do you feel safe at home: Yes additional social history: BF- Deauje Artiflex ROS ROS ED Constitutional Constitutional ED: Denies chills, fever(s) or sweats Eyes Eyes: Denies change in vision ENT ENT ED: Denies dysphagia or sore throat Cardiovascular Cardiovascular: Denies chest pain, leg edema, palpitations or racing heartbeat Respiratory/Chest Respiratory/Chest: Denies cough, dyspnea or dyspnea on exertion Gastrointestinal Gastrointestinal: Reports nausea and vomiting; Denies abdominal pain or diarrhea Genitourinary Genitourinary ED: Denies dysuria, hematuria or urinary frequency Musculoskeletal Musculoskeletal: Denies back pain, extremity pain or neck pain Integumentary Denies rash or wounds Neurologic Neurologic: Denies headache(s), paresthesias or weakness EXAM Physical Exam Const Vital Signs: 12/03/21 17:00 12/03/21 18:01 Temperature 98.1 F Temperature Source Temporal Pulse Rate 112 H 90 Respiratory Rate 19 H 16 Blood Pressure 139/86 H 112/70 Blood Pressure Mean 103 84 Pulse Ox 99 99 Oxygen Delivery Method Room Air Room Air Positive well nourished and well developed General Appearance ED: well developed and NAD HEENT Reports dry mucous membranes normocephalic and atraumatic Mouth ED: Yes dry mucous membranes Mouth: dry mucous membranes Eyes PERRL, EOMs intact bilaterally and conjunctivae normal General Eye ED: Yes normal appearance of both eyes Neck no lymphadenopathy and supple General: Negative for tenderness Chest Wall Chest: Negative for tenderness Resp normal respiratory effort and normal air movement Effort and Inspection: symmetric chest movement; Negative for respiratory distress Cardio regular rhythm and no murmurs Rate: tachycardic Peripheral Pulses: pulses 2+ throughout GI non-tender GI Narrative: Gravid abdomen, soft without guarding or rebound. Palpation: Negative for guarding or rebound tenderness present Back/Spine no CVA tenderness and no thoracic nor lumbar tenderness Extremity normal to inspection General Extremety ED: Negative for edema or tenderness General Extremity: Negative for edema Neuro oriented x3 and no sensory deficits noted Sensorium / Orientation: awake and alert Skin no rashes or lesions noted and no wounds MDM MDM MDM Narrative Medical decision making narrative: Patient vitals stable slight tachycardia. She reports no urine output since this morning. IV was placed given fluids electrolytes were normal. Urine obtained negative. With her noted marijuana dependence history toxin also obtained was negative. Was given IV Reglan. This is proved her symptoms she is tolerating oral intake. Bedside ultrasound performed by myself positive movement heart tones 152. Heart rate improved. She has Zofran at home. She did not want any additional medications. She has a follow-up with her OB this coming Wednesday. She will keep that appointment. Lab Data Attestation: I reviewed the patient's lab results. Labs: Laboratory Results - last 24 hr 12/03/21 12/03/21 12/03/21 17:40 17:51 17:51 Sodium 138 Potassium 3.7 Chloride 108 H Carbon Dioxide 22.0 Anion Gap 8 BUN 5 L Creatinine 0.46 L Estim Creat Clear Calc 203.88 Est GFR (MDRD) Af Amer 224 Est GFR (MDRD) Non-Af 185 BUN/Creatinine Ratio 10.9 Glucose 81 Calcium 8.2 L Urine Color Yellow Urine Clarity Sl. Cloudy Urine pH 6.5 Ur Specific [place] 1.015 Urine Protein Negative Urine Glucose (UA) Normal Urine Ketones 5 H Urine Occult Blood Negative Urine Nitrite Negative Urine Bilirubin Negative Urine Urobilinogen Normal Ur Leukocyte Esterase Negative Urine RBC 0 SEEN Urine WBC 0 SEEN Ur Squamous Epith Cells 0-5 SEEN Urine Bacteria 1+ Urine Mucus 0 SEEN Urine Opiates Screen NEGATIVE Urine Methadone Screen NEGATIVE Ur Barbiturates Screen NEGATIVE Ur Phencyclidine Scrn NEGATIVE Ur Amphetamines Screen NEGATIVE MDMA (Ecstasy) Screen NEGATIVE U Benzodiazepines Scrn NEGATIVE Urine Cocaine Screen NEGATIVE U Cannabinoids Screen NEGATIVE Ur Drug Screen Comment Discharge Plan Triage Chief Complaint: Nausea/Vomiting ED Provider: Carlos Loo Dx/Rx/DC Orders Clinical Impression: Nausea and vomiting during , Third trimester Instructions: Preg 3rd Trimester, ED Vomiting (Adult) Prescriptions: No Action ondansetron HCl 4 mg tablet 4 mg PO Q4H RF: 0 famotidine [Pepcid] 20 mg tablet 20 mg PO DAILY RF: 0 PNV 29-1 29 mg iron- 1 mg tablet 1 tab PO DAILY RF: 0 Primary Care Provider: Care Physician,No Primary Referrals: Stephanie Arthur MD [STAFF PHYSICIAN] - Keep [facility] appointment Care Physician,No Primary [Primary Care Provider] - Disposition Disposition: Home, Self Care Discharge Date/Time: 12/03/21 19:13
[2021-12-03] MEDS: Metoclopramide 10 MG/2 ML Vial 5 MG IV (17:47)
[2021-12-03] MEDS: 0.9% Normal Saline 1,000 ML 1000 ML IV (17:47)
[2021-12-03 17:58] LABS: Mucous, Urine 0 SEEN /hpf (<or=2+); Red Blood Cells-Urine 0 SEEN /hpf (0-5); White Blood Cells 0 SEEN /hpf (0-5)
[2021-12-03 18:01] VITALS: BP 112/70; PULSE 90; RESP 16; O2SAT 99
[2021-12-03 18:05] LABS: Color, Urine Yellow (Yellow); Glucose, Dipstick Normal (Normal); Ketone-Dipstick 5 mg/dl (Negative); Leukocyte Esterase-Dipstick Negative /ul (Negative); Nitrite-Dipstick Negative (Negative); Occult Blood-Urine Negative /ul (Negative); Protein-Dipstick Negative (Negative); Specific Gravity, Urine 1.015 (1.002-1.030); Urine Bilirubin Dipstick Negative (Negative); Urine Clarity Sl. Cloudy (Clear); Urine Urobilinogen Normal (Normal); Urine pH 6.5 (5.0 - 8.0)
[2021-12-03 18:12] LABS: Bacteria 1+ /hpf (None Seen); Squamous Epithelial Cells - UA 0-5 SEEN /hpf (5-10)
[2021-12-03 18:12] LABS: Anion Gap 8 (5-15); BUN 5 mg/dL (7-18); BUN/Creat Ratio 10.9 RATIO (10-20); Calcium,Total 8.2 mg/dL (8.5-10.1); Chloride 108 mmol/L (98-107); Creatinine, Serum 0.46 mg/dL (0.55-1.02); EST Glomerular Filtration Rate 185 mL/min (>60); Est Glom Filt Rate - Afr Amer 224 mL/min (>60); Estimated Creatinine Clearance 203.88 ml/min; Glucose 81 mg/dL (74-106); Potassium 3.7 mmol/L (3.5-5.1); Sodium Level 138 mmol/L (136-145)
[2021-12-03 18:23] LABS: Amphetamine Urine VISTA NEGATIVE (<1000 ng/mL); Barbiturate Urine VISTA NEGATIVE (< 200 ng/mL); Benzodiazepine Urine VISTA NEGATIVE (< 200 ng/mL); Cocaine Urine VISTA NEGATIVE (< 300 ng/mL); Ecstacy Urine VISTA NEGATIVE (< 500 ng/mL); Methadone Urine VISTA NEGATIVE (< 300 ng/mL); PCP Urine VISTA NEGATIVE (< 25 ng/mL); THC Urine VISTA NEGATIVE (< 50 ng/mL); Vista UDS pH Range 5
--- NOTE | 2021-12-03 18:33 | CM.ED ---
Social Work Consult: No PCP Referral source: Self referral due to above. Met with patient in room. Introduced self and social media senior associate role. Patient agreeable to speak with this social media senior associate. This social media senior associate broached topic of PCP. Patient reports to have an appointment with a PCP through [facility] this coming Wednesday. Patient states that [facility] will follow care until 24 or 26. Patient denies needs or concerns on returning to the community. This social media senior associate reviewing patient chart further after speaking with patient and noting that patient is 35 weeks and has history of Marijuana usage. Patient tox screen is negative for Marijuana at this time and patient denied current Marijuana use to ED doctor. No further services requested or indicated. Raul Sanchez MSW, CULLEN
== END 2021-12-03 19:13 | disposition home or self-care (01) ==
PROVIDERS: Emergency Provider Emergency Medicine; Visit Provider Emergency Medicine
DX: O99.323 Drug use complicating pregnancy, third trimester (principal); O99.891 Other specified diseases and conditions complicating pregnancy; Z87.891 Personal history of nicotine dependence; F12.90 Cannabis use, unspecified, uncomplicated; R11.2 Nausea with vomiting, unspecified; Z3A.36 36 weeks gestation of pregnancy
CPT/HCPCS: 80048; 80307; 81001; 99283; J7030; A4216

== ENCOUNTER → 2021-12-08 | Outpatient (CLI) | payer MEDICAID, SELFPAY ==
--- NOTE | 2021-12-08 11:53 | US_ITS ---
STUDY: SECOND AND THIRD TRIMESTER OBSTETRICAL ULTRASOUND - LIMITED REASON FOR EXAM: Female, 21 years old. growth PRIOR ULTRASOUND: Nov 10 2021 11:45am TECHNIQUE: Transabdominal TECHNICAL QUALITY: Adequate. FINDINGS: There is a single intrauterine fetus. The fetus is in a cephalic presentation. There is demonstrated cardiac activity with a heart rate of 156 bpm. There is a normal amniotic fluid volume. The largest amniotic fluid pocket measures 5.2 cm. The amniotic fluid index (RICK) is 15.3 cm. The placenta is anterior in location and is not low lying. There are Grade 1 placental changes. The cervix is obscured by overlying bowel gas and cannot be identified. . BIOMETRY: BPD: 87 mm: 35 weeks, 0 days HC: 320 mm: 36 weeks, 1 days AC: 328 mm: 36 weeks, 5 days FL: 70 mm: 35 weeks, 6 days CI: 78 FL/AC: 21 FL/BPD: 81 HC/AC: .98 age by current US: 36 weeks, 0 days. IVA by current US: 5.23.22. Estimated weight: 2871 grams, +/- 419 grams, 56 %. Age by LMP: 36 weeks, 0 days. IVA by LMP: 5.23.22. US/OB Limited With Biometrics IMPRESSION: There is a single live intrauterine with a heart rate of 156 bpm. age by current US: 36 weeks, 0 days. IVA by current US: 5.23.22. Estimated weight: 2871 grams, +/- 419 grams, 56 %. Electronically Signed: Sukhwinder Eid MD at 15:12 EDT ,
== END | disposition home or self-care (01) ==
LOC: US 11:53
PROVIDERS: Referring Provider Nurse Practitioner Women's Health; Visit Provider Nurse Practitioner Women's Health
DX: O98.519 Other viral diseases complicating pregnancy, unspecified trimester (principal); U07.1 COVID-19; Z3A.36 36 weeks gestation of pregnancy
CPT/HCPCS: 76816

== ENCOUNTER → 2021-12-11 | Outpatient (CLI) | payer MEDICAID, SELFPAY ==
[2021-12-15 12:08] LABS: Chlamydia By Nucleic Acid AMP Negative (Negative)
[2021-12-15 12:19] LABS: Gonococcus By Nucleic Acid AMP Negative (Negative)
== END | disposition home or self-care (01) ==
LOC: LABSPEC 16:15
PROVIDERS: Visit Provider Nurse Practitioner Women's Health
DX: Z34.90 Encounter for supervision of normal pregnancy, unspecified, unspecified trimester (principal); Z3A.34 34 weeks gestation of pregnancy
CPT/HCPCS: 87081; 87491; 87591

== ENCOUNTER → 2021-12-16 | Outpatient (CLI) | payer MEDICAID, SELFPAY ==
[2021-12-16 13:44] LABS: Absolute Lymphocyte Count 3.99 X10^3/uL (0.83-4.51); Absolute Neutrophil Count 9.6 X10^3/uL (2.0-7.7); Basophil# 0.04 X10^3/uL; Basophil% 0.3 % (0-1); Eosinophils% 0.7 % (0-5); Hematocrit 35.5 % (37-47); Hemoglobin 11.5 g/dL (12.0-15.0); Lymphocyte # 3.99 X10^3/ul (0.83-4.51); Lymphocyte % 27.3 % (19-41); Mean Corp Hgb Conc 32.4 g/dL (32-36); Mean Corpuscular Hgb 22.3 pg (27.0-32.0); Mean Corpuscular Volume 68.8 fL (81-99); Monocyte# 0.75 X10^3/uL; Monocyte% 5.1 % (0-10); NRBC Flagged by Analyzer 0 % (0-5); Neutrophil # 9.64 X10^3/uL (2.7-7.7); Platelet Count 273 K/mm3 (150-450); RBC Distribution Width SD 37.1 fl (35.1-43.9); Red Blood Count 5.16 M/mm3 (4.2-5.4); White Blood Count 14.6 K/mm3 (4.4-11.0)
[2021-12-16 14:01] LABS: ALB/GLOB Ratio 0.6 RATIO (0.9-2.4); AST(SGOT) 14 U/L (15-37); Alanine Aminotransfer ALT/SGPT 16 U/L (13-56); Albumin, Serum 2.8 g/dL (3.2-5.0); Alkaline Phosphatase 107 U/L (45-117); Anion Gap 9 (5-15); BUN 5 mg/dL (7-18); BUN/Creat Ratio 8.8 RATIO (10-20); Calcium,Total 8.6 mg/dL (8.5-10.1); Chloride 107 mmol/L (98-107); Creatinine, Serum 0.57 mg/dL (0.55-1.02); EST Glomerular Filtration Rate 145 mL/min (>60); Est Glom Filt Rate - Afr Amer 175 mL/min (>60); Globulin 4.5 g/dL (2.2-4.2); Glucose 91 mg/dL (74-106); Potassium 3.8 mmol/L (3.5-5.1); Protein, Total 7.3 g/dL (6.4-8.2); Sodium Level 137 mmol/L (136-145)
[2021-12-16 14:14] LABS: Protein:Creat Ratio 277 mg/g CRE (0-200)
== END | disposition home or self-care (01) ==
LOC: PAVLAB 13:21
PROVIDERS: Referring Provider Obstetrics & Gynecology; Visit Provider Obstetrics & Gynecology
DX: R51.9 Headache, unspecified (principal)
CPT/HCPCS: 36415; 80053; 82570; 84156; 85025

== ENCOUNTER 2021-12-18 14:25 | Outpatient (CLI) | payer MEDICAID, SELFPAY ==
[2021-12-18 14:51] VITALS: BP 136/82; PULSE 106
[2021-12-18 15:00] VITALS: BMI 50.5
[2021-12-18 15:19] LABS: ROM Internal Control Test YES-OK TO RESULT pt. (Internal QC); ROM Patient Test Negative (Negative)
--- NOTE | 2021-12-18 16:54 | OB.TRI.PN ---
Progress Notes Date of Service: 12/18/21 Progress Note: Patient presents for triage evaluation secondary to false labor FHT: 130 Moderate variability reactive no decelerations category I tracing [place]: irregualr Contractions Assessment and plan: false labor no cervical change Reactive NST, reassuring maternal and status patient discharged to home to follow-up as shceudled. See problem list details for additional plan information. Laboratory Studies: Laboratory Tests 12/18/21 Range/Units 14:52 Vag Amniotic Fld Detect Negative (Negative) Charges/Coding Procedures Urinary/Genital 52xxx-59xxx: 18755-53 non-stress test Interp
== END 2021-12-18 16:45 | disposition home or self-care (01) ==
LOC: WPOUT 14:28 → WP 14:28
PROVIDERS: Referring Provider Obstetrics & Gynecology; Visit Provider Obstetrics & Gynecology
DX: O47.9 False labor, unspecified (principal); Z3A.00 Weeks of gestation of pregnancy not specified
CPT/HCPCS: 59025; 59050; 84112; 99218; G0378

== ENCOUNTER 2021-12-23 04:11 | Inpatient (IN) | payer MEDICAID, SELFPAY ==
[2021-12-23] VITALS (62 sets, daily range): BP systolic 93–153; BP diastolic 51–93; PULSE 72–134; RESP 16; TEMP 36.4–37; O2SAT 81–100; BMI 50.9
[2021-12-23] MEDS: Lactated Ringers 1,000 ML 50 ML IV (05:10)
[2021-12-23 05:19] LABS: Protein, Urine (Random) 19.5 mg/dL (<11.9); Protein:Creat Ratio 283 mg/g CRE (0-200)
[2021-12-23 05:22] LABS: Absolute Lymphocyte Count 4.68 X10^3/uL (0.83-4.51); Absolute Neutrophil Count 11.1 X10^3/uL (2.0-7.7); Basophil# 0.05 X10^3/uL; Basophil% 0.3 % (0-1); Eosinophil# 0.16 X10^3/uL; Eosinophils% 0.9 % (0-5); Hematocrit 33.6 % (37-47); Hemoglobin 10.6 g/dL (12.0-15.0); Lymphocyte # 4.68 X10^3/ul (0.83-4.51); Lymphocyte % 27.2 % (19-41); Mean Corp Hgb Conc 31.5 g/dL (32-36); Mean Corpuscular Hgb 22.3 pg (27.0-32.0); Mean Corpuscular Volume 70.7 fL (81-99); Mean Platelet Vol. 10.3 fl (6.2-12.0); Monocyte# 1.08 X10^3/uL; Monocyte% 6.3 % (0-10); NRBC Flagged by Analyzer 0 % (0-5); Neutrophil # 11.08 X10^3/uL (2.7-7.7); Neutrophil % 64.4 % (47-70); POSITIVE MORPHOLOGY YES; Platelet Count 234 K/mm3 (150-450); RBC Distribution Width CV 15.2 % (11.6-14.6); RBC Distribution Width SD 38.2 fl (35.1-43.9); Red Blood Count 4.75 M/mm3 (4.2-5.4); White Blood Count 17.2 K/mm3 (4.4-11.0)
[2021-12-23 05:22] LABS: Amphetamine Urine VISTA NEGATIVE (<1000 ng/mL); Barbiturate Urine VISTA NEGATIVE (< 200 ng/mL); Benzodiazepine Urine VISTA NEGATIVE (< 200 ng/mL); Cocaine Urine VISTA NEGATIVE (< 300 ng/mL); Ecstacy Urine VISTA NEGATIVE (< 500 ng/mL); Methadone Urine VISTA NEGATIVE (< 300 ng/mL); PCP Urine VISTA NEGATIVE (< 25 ng/mL); THC Urine VISTA NEGATIVE (< 50 ng/mL); Vista UDS pH Range 5
[2021-12-23 05:24] LABS: Differential Indicated SCAN CRITERIA MET
[2021-12-23 05:36] LABS: AST(SGOT) 12 U/L (15-37); Alanine Aminotransfer ALT/SGPT 11 U/L (13-56); Creatinine, Serum 0.52 mg/dL (0.55-1.02); EST Glomerular Filtration Rate 158 mL/min (>60); Est Glom Filt Rate - Afr Amer 192 mL/min (>60); Estimated Creatinine Clearance 180.35 ml/min; Uric Acid 4.8 mg/dL (2.6-6.0)
[2021-12-23 05:49] LABS: Atypical Lymphocyte RARE %; Differential Comment SCANNED
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
[2021-12-23] MEDS: Lactated Ringers 500 ML 999 ML IV ×2 (07:28→18:15)
[2021-12-23] MEDS: Oxytocin 30 units/NS 500 ml 30 UNITS/500 ML IV.SOLN IV (07:30)
--- NOTE | 2021-12-23 07:35 | PCM.DC ---
Discharge Instructions Diet Discharge Diet: No restrictions Activity May resume sexual activity in: 6 weeks Weight Bearing Status: Full weight bearing Dressing / Incision Call your doctor if your incision/area has: Continuous Slow Oozing, Sudden Increased Bleeding, Increased Pain/ Swelling, Increased Redness and Foul Smelling Discharge Call your doctor if you observe: Fever of 101 or Higher, Using more than 1 pad per hour, Shortness of breath, Chest pain and Uncontrolled pain Suture Line Care: Avoid Pulling/Pushing and Avoid Pinching/Bending Remove Dressing in: 1 week (if present) Cleanse incision/area with: Soap & Water and Keep Dressing Clean & Dry Follow Up Care Please Follow Up With: Karlee Cueva DO When: Call to make an appointment with your doctor for a postop visit in 2 and 6 weeks Test Results: Test results from this visit will be discussed in further detail at your follow-up appointment, if applicable. Discharge Plan Admission Admit Date/Time: 12/23/21 04:11 Primary Reason for Your Visit: hysterectomy Attending Provider: Karlee Cueva Primary Care Provider: Care Physician,Krissy Primary Discharge Orders/Prescriptions Prescriptions: No Action ondansetron HCl 4 mg tablet 4 mg PO Q4H RF: 0 famotidine [Pepcid] 20 mg tablet 20 mg PO DAILY RF: 0 PNV 29-1 29 mg iron- 1 mg tablet 1 tab PO DAILY RF: 0 Referrals / Follow Up: Care Physician,No Primary [Primary Care Provider] -
[2021-12-23] MEDS: fentaNYL-bupivacaine (epidural) 100 ML BAG EPIDURAL ×2 (09:21→14:51)
--- NOTE | 2021-12-23 12:54 | PN_ITS ---
Progress Note pt is resting on her right side. epidural is in place. pitocin is running at 4 mu/min current tracing: FHT: 1040 Moderate variability reactive no decelerations category I tracing [place]: tripling then spacing out to every 5 minutes Contractions cx\; /-1 reviewed tracing abnormalities since last note: no changes A/P: continue increasing pitocin and anticipate later today
[2021-12-23] MEDS: Lactated Ringers 1,000 ML 200 ML IV (13:37)
[2021-12-23] MEDS: Oxytocin 30 units/NS 500 ml 30 UNITS/500 ML IV.SOLN 334 UNITS IV (15:42)
--- NOTE | 2021-12-23 15:50 | EX.PCM.OBRPT ---
Maternal Data Information IVA Calculator Estimated Delivery Date Method Current Current Estimate 01/05/22 Ultrasound #1 38w 1d Other Estimates 12/24/21 LMP (Certain) 39w 6d Vaginal Delivery Maternal Presentation Maternal Presentation: Spontaneous Rupture of Membranes Type of Induction: Pitocin Operative Information Date of Procedure: 12/23/21 Pre-Operative Diagnosis: srom at 38 weeks 1 day, Post-Operative Diagnosis: srom at 38 weeks 1 day, Type of Anesthesia: Epidural Estimated Blood Loss: 50cc Findings Description of Procedure: Patient began pushing and delivered the head in the DILSHAD presentation. The head was delivered atraumatically . The anterior and posterior shoulders delivered without complication followed by the rest of the and the infant was placed on the maternal abdomen. Delayed cord clamping was employed for approximately 60 seconds. Cord was clamped and cut and gentle traction was applied to the cord and the placenta delivered spontaneously immediately following it was noted to be intact with three-vessel cord. The perineum and vagina were inspected and noted to have no laceration. EBL was 50cc. Patient and tolerated delivery well. Presentation: Vertex Amniotic Fluid Description: Clear Placental Delivery Description: Spontaneous Placenta Disposition: [facility] Cord Vessel Description: 3 Vessels Cord Entanglement: None A Gender: Male (1 minute): 8 (5 minute): 9 Delayed Cord Clamping: Yes Post Vaginal Delivery Medications Given After Delivery: IV Pitocin Episiotomy Description: None Laceration: None Complication Complications: None Multi Select Codes Urinary/Genital Urinary/Genital CPT Codes: 62459 Vaginal Delivery Only
--- NOTE | 2021-12-23 15:53 | PCM.DC ---
Discharge Instructions Diet Discharge Diet: No restrictions Activity Discharge Activity: Return to Normal Activity, May Not Drive (while taking narcotic pain medications.) and May Shower May resume sexual activity in: 4-6 weeks Dressing / Incision Call your doctor if your incision/area has: Continuous Slow Oozing, Sudden Increased Bleeding, Increased Pain/ Swelling, Increased Redness and Foul Smelling Discharge Follow Up Care Please Follow Up With: Karlee Cueva DO When: Call [phone] to make an appointment with your doctor in 6 weeks. If you had elevated blood pressure or 4th degree laceration, you will need to be seen in 2 weeks. Test Results: Test results from this visit will be discussed in further detail at your follow-up appointment, if applicable. Discharge Plan Admission Admit Date/Time: 12/23/21 04:11 Primary Reason for Your Visit: vaginal delivery Attending Provider: Karlee Cueva Primary Care Provider: Care Physician,No Primary Discharge Orders/Prescriptions Prescriptions: New ibuprofen 800 mg tablet 800 mg PO Q8H PRN (Reason: pain) 7 Days Qty: 30 RF: 0 Continued ondansetron HCl 4 mg tablet 4 mg PO Q4H RF: 0 famotidine [Pepcid] 20 mg tablet 20 mg PO DAILY RF: 0 vit,yrcx32-zkti-naliz 29 mg iron- 1 mg tablet 1 tab PO DAILY RF: 0 Referrals / Follow Up: Care Physician,No Primary [Primary Care Provider] -
[2021-12-24 00:35] VITALS: BP 115/63; PULSE 105; RESP 18; TEMP 37.1
[2021-12-24] MEDS: Ibuprofen 600 MG Tablet PO ×2 (00:51→14:16)
[2021-12-24] MEDS: Acetaminophen 500 MG Tablet 1000 MG PO (02:30)
[2021-12-24 06:00] VITALS: BP 121/71; PULSE 92; RESP 16; TEMP 36.4
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
[2021-12-24 09:31] VITALS: BP 120/69; PULSE 85; RESP 14; TEMP 36.4
[2021-12-24 12:33] VITALS: BP 102/50; PULSE 94; RESP 12; TEMP 36.3
--- NOTE | 2021-12-24 12:50 | PCM.OP.BLANK ---
Operative Report Date of Procedure: 12/24/21 preprocedure diagnosis: desires contraception postprocedure diagnosis: desires contraception procedure: nexplanon insertion details: The patient's left arm was bent above her head and the later epicondyle was detected. 8 cm medial to this landmark, 5 cc of 1% lidocaine was injected after application of betadine solution. The skin was then pierced by the device and the device was deployed without difficulty. The patient declined to palpated the device and the arm was dressed with a pressure dressing. Multi Select Codes Urinary/Genital Urinary/Genital CPT Codes: Other Procedure See Report
[2021-12-24 16:25] VITALS: BP 131/53; PULSE 89; RESP 18; TEMP 36.6
== END 2021-12-24 18:50 | disposition home or self-care (01) | DRG 560 ==
LOC: WPOUT 04:13 → WP 04:13 → WPOUT 04:29 → WP 04:29
PROVIDERS: Admitting Provider Obstetrics & Gynecology; Visit Provider Obstetrics & Gynecology
DX: O99.324 Drug use complicating childbirth (principal); Z37.0 Single live birth; O99.344 Other mental disorders complicating childbirth; F12.10 Cannabis abuse, uncomplicated; F41.9 Anxiety disorder, unspecified; F17.200 Nicotine dependence, unspecified, uncomplicated; O99.334 Smoking (tobacco) complicating childbirth; F90.9 Attention-deficit hyperactivity disorder, unspecified type; F43.10 Post-traumatic stress disorder, unspecified; F32.A Depression, unspecified; Z87.09 Personal history of other diseases of the respiratory system; Z3A.38 38 weeks gestation of pregnancy
CPT/HCPCS: 59025; 59050; 80307; 82565; 82570; 84156; 84450; 84460; 84550; 85025; 86850; 86900; 86901; 87426; 99218; 99406; J7120; G0378

== ENCOUNTER 2022-01-15 07:25 | Emergency (ER) | payer MEDICAID, SELFPAY ==
[2022-01-15 07:25] VITALS: BP 131/71; PULSE 121; RESP 20; TEMP 36.6; O2SAT 96; BMI 35.7
--- NOTE | 2022-01-15 07:37 | CT_ITS ---
STUDY: CTA CHEST REASON FOR EXAM: Female, 21 years old. Right-sided chest pain for one day. One month . RADIATION DOSAGE (If Supplied By Facility): CTDIvol = ( 17.41 ) mGy, DLP = ( 492.26 ) mGycm TECHNIQUE: The examination was performed with the intravenous administration of IV 100mL Isovue-370. Post-processing of the angiographic images was performed, with multiplanar reformation and 3D reconstruction. Individualized dose optimization techniques were used for this CT. COMPARISON: Comparison is made with prior study dated 04/13/2020. FINDINGS: Small benign-appearing bilateral axillary lymph nodes. Normal enhancement of the main pulmonary artery and right and left pulmonary arteries. Normal enhancement of the bilateral peripheral pulmonary arteries. There is no demonstrated pulmonary embolism. Normal thoracic aorta and visualized great vessels. There is no demonstrated aortic dissection. Normal heart and pericardium. Normal mediastinum. Normal hilar regions. Normal visualized trachea and bronchi. The lungs are well expanded. Normal pulmonary parenchyma. Normal pleura. Normal chest wall structures. Normal osseous structures. Normal visualized upper abdomen. CT/CTA Chest W/WO Contrast IMPRESSION: Normal CTA chest examination, without a demonstrated pulmonary embolism or arterial dissection. Electronically Signed: Manav Zelaya MD at 8:43 EDT ,
--- NOTE | 2022-01-15 07:37 | EKG12_ITS ---
Test Reason : SOB/CP Blood Pressure : / mmHG Vent. Rate : 081 BPM Atrial Rate : 081 BPM P-R Int : 148 ms QRS Dur : 092 ms QT Int : 400 ms P-R-T Axes : 052 028 016 degrees QTc Int : 464 ms Normal sinus rhythm with sinus arrhythmia Normal ECG Confirmed by DEVANG VARELA, CHLOE ([id number]), acquisition editor JESUS LAO ([id number]) on 01/19/2022 12:45:36 PM Referred By: PARRIS Confirmed By:CHLOE SIDDIQI MD
--- NOTE | 2022-01-15 07:39 | EDS_ITS ---
HPI History of Present Illness Chief Complaint: Chest Other Informant: patient Narrative Narrative: Patient developed chest pain at the lower chest anteriorly on both sides as well as some dyspnea that occurred about 3 AM. Been waxing and waning since. But is not improving. She has had anxiety before. She has had asthma before but this does not feel like those. She is not really coughing. No hemoptysis. She did feel flushed or hot but does not know if she had a fever. No myalgias. No history of DVT or PE but she does carry some clotting factor. This might be MTHFR but she is not sure. She did just have vaginal delivery about 3 weeks ago. She is still having some dark bleeding from this. This was her first delivery. Baby is doing well. PFSH PFS Medical History ADHD Anemia Anxiety Asthma Chest pain Depression Fatigue Genital herpes affecting Left lower quadrant pain Severe headache Shortness of breath Home Medications famotidine [Pepcid] 20 mg PO DAILY 11/16/21 [History Last Taken 12/18/21] ondansetron HCl 4 mg PO Q4H 11/16/21 [History Last Taken 12/18/21] vit,nwxl63-ncdr-zozdk 1 tab PO DAILY 11/16/21 [History Last Taken 12/18/21] ibuprofen 800 mg PO Q8H PRN 7 Days #30 tab 12/23/21 [Rx Last Taken Unknown] Allergy/AdvReac Type Severity Reaction Status Date / Time No Known Allergies Allergy Verified 01/15/22 07:28 Family History Mother Lupus Sjogrens syndrome Father Sleep apnea Grandfather Brain cancer Seizures Grandmother COPD (chronic obstructive pulmonary disease) Leukemia Surgical History History of tonsillectomy S/P left knee arthroscopy S/P tonsillectomy Social History household members: family current occupational status: unemployed pets and animals: Yes Smoking Status: Former smoker second hand exposure: Yes alcohol intake: current substance use type: marijuana seatbelt use: always do you feel safe at home: Yes additional social history: BF- Deauje Artiflex ROS ROS ED Constitutional Constitutional ED: Reports subjective Eyes Eyes: Denies blurry vision ENT ENT ED: Denies rhinorrhea or sore throat Cardiovascular Cardiovascular: Reports chest pain; Denies palpitations or racing heartbeat Respiratory/Chest Respiratory/Chest: Reports dyspnea; Denies cough or sputum Gastrointestinal Gastrointestinal: Denies abdominal pain, diarrhea, nausea or vomiting Genitourinary Genitourinary ED: Denies dysuria Musculoskeletal Musculoskeletal: Denies myalgias Integumentary Denies rash Neurologic Neurologic: Denies headache(s) Endocrine Endocrinology: Denies polydipsia or polyuria Hematologic/Lymphatic Hematologic/Lymphatic: Denies easy bleeding or easy bruising Allergic/Immunologic Allergic/Immunologic ED: Denies urticaria EXAM Physical Exam Const Vital Signs: 01/15/22 07:25 01/15/22 07:31 01/15/22 07:59 Temperature 97.8 F Temperature Source Temporal Pulse Rate 121 H 81 Respiratory Rate 20 H 34 H Respiratory Effort Normal Non-Labored Respiratory Pattern Normal Blood Pressure 131/71 H Blood Pressure Mean 91 Pulse Ox 96 100 Oxygen Delivery Method Room Air Room Air 01/15/22 09:12 Temperature Temperature Source Pulse Rate 83 Respiratory Rate 24 H Respiratory Effort Respiratory Pattern Blood Pressure 112/64 Blood Pressure Mean 80 Pulse Ox 98 Oxygen Delivery Method Room Air Patient is in no distress but she does have an increased work of breathing. Positive well nourished and well developed General Appearance ED: well developed and NAD; Negative for pallor HEENT normocephalic and atraumatic Eyes PERRL General Eye ED: Negative for pale conjunctiva Neck no JVD Chest Wall inspection of chest normal Resp Resp Narrative: Slight increased respiratory effort. I really do not hear any notable wheezing though. Her saturations are about 99% while I am in the room. But her respiratory rate is in the low 20s at about 22 while I am in the room. Cardio regular rate and regular rhythm Rate: other Other Details: Patient was initially tachycardic when she came in. Sitting in bed she is about 90-95 which is still relatively up for her age. GI normal to inspection, nondistended, normoactive bowel sounds and soft to palpation Back/Spine no CVA tenderness Extremity normal to inspection General Extremety ED: Negative for tenderness Neuro Sensorium / Orientation: awake and alert Psych mental status grossly normal Skin no rashes or lesions noted General Skin Exam: Negative for pallor MDM MDM MDM Narrative Medical decision making narrative: Patient is still having vaginal bleeding. Unless we know she has a PE I am not going to give anticoagulation as she is clinically very stable. I am not going to do a D-dimer as I would likely be elevated and delay getting imaging. We will get a CTA of the chest. I will give her a breathing treatment to see if this helps her because she does have a history of asthma and this may give her some benefit. I will also add an troponin and BNP as she is also at risk for cardiomyopathy . Happily, the patient CT scan does not show pulmonary embolus or any other acute process. Troponin and BNP are also negative. Her hemoglobin is okay at 10.8. Although this is a little bit low this is not unexpected after delivery. COVID is negative. Patient ambulated and her saturation stayed in the 90s percent. Her heart rate went up a little bit. But sitting down her heart rate 75 now. I think this is likely due to a combination of multiple factors. I think she is okay to go home. I do not think this requires acute treatment with transfusion antibiotics etc. I have encouraged her to increase iron in her diet. She will follow-up with her OB doctor. Lab Data Attestation: I reviewed the patient's lab results. Labs: Laboratory Results - last 24 hr 01/15/22 01/15/22 01/15/22 07:49 07:49 07:49 WBC 13.4 H RBC 5.05 Hgb 10.8 L Hct 34.6 L MCV 68.5 L MCH 21.4 L MCHC 31.2 L RDW Std Deviation 38.3 RDW Coeff of Nancy 15.6 H Plt Count 318 MPV 9.9 Immature Gran % (Auto) 0.500 Neut % (Auto) 66.0 Lymph % (Auto) 26.4 [place] % (Auto) 5.2 Eos % (Auto) 1.7 Baso % (Auto) 0.2 Absolute Neuts (auto) 8.8 H Absolute Lymphs (auto) 3.54 Nucleated RBC % 0 Sodium 139 Potassium 3.7 Chloride 107 Carbon Dioxide 24.0 Anion Gap 8 BUN 14 Creatinine 0.81 Estim Creat Clear Calc 115.78 Est GFR (MDRD) Af Amer 116 Est GFR (MDRD) Non-Af 95 BUN/Creatinine Ratio 17.3 Glucose 99 Calcium 9.0 Troponin I High Sens < 3 L B-Natriuretic Peptide 4.2 Radiography Diagnostic Testing: Clinical Impression(s) from Imaging Studies Chest CTA 01/15/22 07:37 IMPRESSION: Normal CTA chest examination, without a demonstrated pulmonary embolism or arterial dissection. Electronically Signed: Manav Zelaya MD at 8:43 EDT , EKG Initial EKG: Comments: EKG done for tachycardia dyspnea and chest pain read by me shows a normal sinus rhythm with sinus arrhythmia. Overall rate of 81. No ventricular ectopy. No acute ST elevation or depression. MD interval, QRS duration and QTc are normal. This heart rate is slowed down from her arrival. It is actually similar but slower than prior from 03 February 2021. Discharge Plan Triage Chief Complaint: Chest Other ED Provider: Mikal Ann Dx/Rx/DC Orders Clinical Impression: Acute dyspnea, History of asthma, Chest pain Instructions: ED Dyspnea Prescriptions: No Action ondansetron HCl 4 mg tablet 4 mg PO Q4H RF: 0 famotidine [Pepcid] 20 mg tablet 20 mg PO DAILY RF: 0 vit,[id number] 29 mg iron- 1 mg tablet 1 tab PO DAILY RF: 0 ibuprofen 800 mg tablet 800 mg PO Q8H PRN (Reason: pain) 7 Days Qty: 30 RF: 0 Primary Care Provider: Care Physician,No Primary Referrals: Karlee Cueva DO [STAFF PHYSICIAN] - 3-5 Days Care Physician,No Primary [Primary Care Provider] - Disposition Disposition: Home, Self Care
[2022-01-15] MEDS: Ipratropium/Albuterol Sulfate 3 ML AMPUL.NEB INHALATION (07:47)
[2022-01-15 07:59] VITALS: PULSE 81; RESP 34; O2SAT 100
[2022-01-15 08:02] LABS: Absolute Lymphocyte Count 3.54 X10^3/uL (0.83-4.51); Absolute Neutrophil Count 8.8 X10^3/uL (2.0-7.7); Basophil# 0.03 X10^3/uL; Basophil% 0.2 % (0-1); Eosinophil# 0.23 X10^3/uL; Eosinophils% 1.7 % (0-5); Hematocrit 34.6 % (37-47); Hemoglobin 10.8 g/dL (12.0-15.0); Lymphocyte # 3.54 X10^3/ul (0.83-4.51); Lymphocyte % 26.4 % (19-41); Mean Corp Hgb Conc 31.2 g/dL (32-36); Mean Corpuscular Hgb 21.4 pg (27.0-32.0); Mean Corpuscular Volume 68.5 fL (81-99); Mean Platelet Vol. 9.9 fl (6.2-12.0); Monocyte% 5.2 % (0-10); NRBC Flagged by Analyzer 0 % (0-5); Neutrophil # 8.83 X10^3/uL (2.7-7.7); Platelet Count 318 K/mm3 (150-450); RBC Distribution Width CV 15.6 % (11.6-14.6); RBC Distribution Width SD 38.3 fl (35.1-43.9); Red Blood Count 5.05 M/mm3 (4.2-5.4); White Blood Count 13.4 K/mm3 (4.4-11.0)
[2022-01-15 08:18] LABS: Anion Gap 8 (5-15); BUN 14 mg/dL (7-18); BUN/Creat Ratio 17.3 RATIO (10-20); Chloride 107 mmol/L (98-107); Creatinine, Serum 0.81 mg/dL (0.55-1.02); EST Glomerular Filtration Rate 95 mL/min (>60); Est Glom Filt Rate - Afr Amer 116 mL/min (>60); Estimated Creatinine Clearance 115.78 ml/min; Glucose 99 mg/dL (74-106); Potassium 3.7 mmol/L (3.5-5.1); Sodium Level 139 mmol/L (136-145); Troponin-I HS < 3 pg/mL (3.0-54.0)
[2022-01-15 08:33] LABS: BNP,B-Type NATRIURETIC PEPTIDE 4.2 pg/mL (0-100)
[2022-01-15 09:12] VITALS: BP 112/64; PULSE 83; RESP 24; O2SAT 98
== END 2022-01-15 09:29 | disposition home or self-care (01) ==
PROVIDERS: Emergency Provider Emergency Medicine; Visit Provider Emergency Medicine
DX: R07.89 Other chest pain (principal); R06.00 Dyspnea, unspecified; Z87.891 Personal history of nicotine dependence
CPT/HCPCS: 71275; 80048; 83880; 84484; 85025; 87811; 93005; 94640; 99284; Q9967; A4216

== ENCOUNTER 2022-01-22 12:36 | Emergency (ER) | payer MEDICAID, SELFPAY ==
[2022-01-22 12:37] VITALS: BP 135/109; PULSE 86; RESP 20; TEMP 36.6; O2SAT 100; BMI 20.7
--- NOTE | 2022-01-22 13:02 | EDS_ITS ---
HPI History of Present Illness Chief Complaint: Nausea/Vomiting Informant: patient Onset/Context/Timing Onset: Weeks (2) Context: Gradual Onset Timing: Continuous Quality: Stabbing, tightness Location: Upper abdomen/lower chest Worsened by: Nothing Relieved by: Nothing Narrative Narrative: Patient presents with shortness of breath and upper abdominal pain that has been worse over the last 2 weeks. Patient states he has been constant. Patient admits to nausea but denies any vomiting. Patient states it is a tightness and stabbing over the lower chest and upper abdomen. Patient states nothing makes it better nothing makes it worse. Patient denies any diarrhea, m bronwyn, or hematochezia. Patient denies any dysuria, hematuria, or frequency. Patient does admit to some subjective chills but denies any fevers. [facility] Medical History ADHD Anemia Anxiety Asthma Chest pain Depression Fatigue Genital herpes affecting Left lower quadrant pain Severe headache Shortness of breath Allergy/AdvReac Type Severity Reaction Status Date / Time No Known Allergies Allergy Verified 01/22/22 12:40 Family History Mother Lupus Sjogrens syndrome Father Sleep apnea Grandfather Brain cancer Seizures Grandmother COPD (chronic obstructive pulmonary disease) Leukemia Surgical History History of tonsillectomy S/P left knee arthroscopy S/P tonsillectomy Social History household members: family current occupational status: unemployed pets and animals: Yes Smoking Status: Current every day smoker tobacco type: e-cigarettes second hand exposure: Yes alcohol intake: current substance use type: marijuana seatbelt use: always do you feel safe at home: Yes additional social history: BF- Deauje Artiflex ROS ROS ED Constitutional Constitutional ED: Reports chills and subjective; Denies fever(s) Eyes Eyes: Denies blurry vision or change in vision ENT ENT ED: Denies rhinorrhea or sore throat Cardiovascular Cardiovascular: Denies chest pain or palpitations Respiratory/Chest Respiratory/Chest: Reports dyspnea; Denies cough Gastrointestinal Gastrointestinal: Reports abdominal pain and nausea; Denies vomiting Genitourinary Genitourinary ED: Denies dysuria or hematuria Musculoskeletal Musculoskeletal: Denies back pain or neck pain Integumentary Denies abscess or rash Neurologic Neurologic: Denies headache(s) or weakness Allergic/Immunologic Allergic/Immunologic ED: Denies mouth swelling or urticaria EXAM Physical Exam Const Vital Signs: 01/22/22 12:37 01/22/22 15:14 01/22/22 15:17 Temperature 97.9 F 97.5 F L Temperature Source Temporal Temporal Pulse Rate 86 65 Respiratory Rate 20 H 17 15 Blood Pressure 135/109 H 105/71 Blood Pressure Mean 117 82 Pulse Ox 100 99 Oxygen Delivery Method Room Air Positive well nourished, well developed and obese General Appearance ED: well developed and NAD Nutritional Appearance: obese HEENT Reports moist mucous membranes Resp normal respiratory effort and clear to auscultation bilaterally Cardio regular rate and regular rhythm GI Palpation: soft and tender epigastric, LUQ and RUQ; Negative for guarding or rebound tenderness present Neuro oriented x3, CN's II-XII intact bilaterally and no sensory deficits noted Sensorium / Orientation: alert Motor Exam: strength 5/5 throughout Psych mental status grossly normal MDM MDM MDM Narrative Medical decision making narrative: Patient was given IV fluids, morphine, and Zofran here. EKG was obtained. On my interpretation shows a normal sinus rhythm with a rate of 78. There are no acute ST or T wave changes. SC interval, QRS interval, and QTc interval are normal. [place] is normal. CBC s howed a slight leukocytosis of 11.3. Hemoglobin was 11.4 and hematocrit was 36.9. Comprehensive metabolic profile was obtained and was within normal limits. High-sensitivity troponin was normal. Lipase was normal. Patient had a CTA of the chest last week while she was here. There is no evidence of pulmonary embolism. I do not feel that a repeat CT is necessary at this time. Patient was advised of her findings. Patient was instructed to follow-up with her primary care physician in 5 to 7 days for further evaluation of her pain and tightness. Patient understood and was agreeable with the plan. All questions were answered. Lab Data Attestation: I reviewed the patient's lab results. Labs: Laboratory Results - last 24 hr 01/22/22 01/22/22 13:15 13:15 WBC 11.3 H RBC 5.37 Hgb 11.4 L Hct 36.9 L MCV 68.7 L MCH 21.2 L MCHC 30.9 L RDW Std Deviation 40.1 RDW Coeff of Nancy 16.4 H Plt Count 295 MPV 9.6 Immature Gran % (Auto) 0.400 Neut % (Auto) 52.1 Lymph % (Auto) 39.2 [place] % (Auto) 5.5 Eos % (Auto) 2.4 Baso % (Auto) 0.4 Absolute Neuts (auto) 5.9 Absolute Lymphs (auto) 4.42 Nucleated RBC % 0 Reactive Lymphocytes RARE Sodium 140 Potassium 3.9 Chloride 112 H Carbon Dioxide 25.0 Anion Gap 3 L BUN 11 Creatinine 0.83 Estim Creat Clear Calc 108.39 Est GFR (MDRD) Af Amer 113 Est GFR (MDRD) Non-Af 93 BUN/Creatinine Ratio 13.3 Glucose 85 Calcium 8.8 Total Bilirubin 0.30 AST 92 H ALT 111 H Alkaline Phosphatase 222 H Troponin I High Sens 3 Total Protein 7.4 Albumin 3.3 Globulin 4.1 Albumin/Globulin Ratio 0.8 L Lipase 147 EKG Initial EKG: Attestation: I personally reviewed and interpreted this EKG as follows: Interpretation: Sinus Rhythm (78) and No Acute Injury Pattern Discharge Plan Triage Chief Complaint: Nausea/Vomiting ED Provider: Leland Pompa Dx/Rx/DC Orders Clinical Impression: Abdominal pain Instructions: ED Abdominal Pain Unkn Cause Fem Primary Care Provider: Care Physician,No Primary Referrals: Timi Marie MD [NON-STAFF] - 3-5 Days Care Physician,No Primary [Primary Care Provider] - Disposition Disposition: Home, Self Care
--- NOTE | 2022-01-22 13:09 | EKG12_ITS ---
Test Reason : Blood Pressure : / mmHG Vent. Rate : 078 BPM Atrial Rate : 078 BPM P-R Int : 148 ms QRS Dur : 088 ms QT Int : 400 ms P-R-T Axes : 060 033 035 degrees QTc Int : 456 ms Normal sinus rhythm with sinus arrhythmia Normal ECG Confirmed by SADA VARELA, BASSAM ([id number]), mapping editor JESUS LAO ([id number]) on 01/26/2022 7:22:06 AM Referred By: ORALIA Confirmed By:BASSAM TOMLIN MD
[2022-01-22 13:23] LABS: Absolute Lymphocyte Count 4.42 X10^3/uL (0.83-4.51); Absolute Neutrophil Count 5.9 X10^3/uL (2.0-7.7); Basophil# 0.04 X10^3/uL; Basophil% 0.4 % (0-1); Eosinophil# 0.27 X10^3/uL; Eosinophils% 2.4 % (0-5); Hematocrit 36.9 % (37-47); Hemoglobin 11.4 g/dL (12.0-15.0); Lymphocyte # 4.42 X10^3/ul (0.83-4.51); Lymphocyte % 39.2 % (19-41); Mean Corp Hgb Conc 30.9 g/dL (32-36); Mean Corpuscular Hgb 21.2 pg (27.0-32.0); Mean Corpuscular Volume 68.7 fL (81-99); Mean Platelet Vol. 9.6 fl (6.2-12.0); Monocyte# 0.62 X10^3/uL; Monocyte% 5.5 % (0-10); NRBC Flagged by Analyzer 0 % (0-5); Neutrophil # 5.89 X10^3/uL (2.7-7.7); Neutrophil % 52.1 % (47-70); POSITIVE MORPHOLOGY YES; Platelet Count 295 K/mm3 (150-450); RBC Distribution Width CV 16.4 % (11.6-14.6); RBC Distribution Width SD 40.1 fl (35.1-43.9); Red Blood Count 5.37 M/mm3 (4.2-5.4); White Blood Count 11.3 K/mm3 (4.4-11.0)
[2022-01-22] MEDS: 0.9% Normal Saline 1,000 ML 1000 ML IV (13:27)
--- NOTE | 2022-01-22 13:29 | ED.RN ---
Pt concerned if it is ok to have meds with her her baby. Per Dr Pompa, ok for meds with .
[2022-01-22] MEDS: Morphine 4 MG/ML Syringe IV (13:30)
[2022-01-22] MEDS: Ondansetron 4 MG/2 ML Vial IV (13:30)
[2022-01-22 13:40] LABS: ALB/GLOB Ratio 0.8 RATIO (0.9-2.4); AST(SGOT) 92 U/L (15-37); Alanine Aminotransfer ALT/SGPT 111 U/L (13-56); Albumin, Serum 3.3 g/dL (3.2-5.0); Alkaline Phosphatase 222 U/L (45-117); Anion Gap 3 (5-15); BUN 11 mg/dL (7-18); BUN/Creat Ratio 13.3 RATIO (10-20); Calcium,Total 8.8 mg/dL (8.5-10.1); Chloride 112 mmol/L (98-107); Creatinine, Serum 0.83 mg/dL (0.55-1.02); EST Glomerular Filtration Rate 93 mL/min (>60); Est Glom Filt Rate - Afr Amer 113 mL/min (>60); Estimated Creatinine Clearance 108.39 ml/min; Globulin 4.1 g/dL (2.2-4.2); Glucose 85 mg/dL (74-106); Lipase 147 U/L (73-393); Potassium 3.9 mmol/L (3.5-5.1); Protein, Total 7.4 g/dL (6.4-8.2); Sodium Level 140 mmol/L (136-145); Troponin-I HS 3 pg/mL (3.0-54.0)
[2022-01-22 13:53] LABS: Differential Indicated SCAN CRITERIA MET; Reactive Lymphocyte RARE
[2022-01-22 15:14] VITALS: RESP 17
[2022-01-22 15:17] VITALS: BP 105/71; PULSE 65; RESP 15; TEMP 36.4; O2SAT 99
[2022-01-22 15:58] VITALS: BP 124/76; PULSE 80; RESP 18; O2SAT 98
== END 2022-01-22 15:59 | disposition home or self-care (01) ==
PROVIDERS: Emergency Provider Emergency Medicine; Visit Provider Emergency Medicine
DX: R10.9 Unspecified abdominal pain (principal); R11.2 Nausea with vomiting, unspecified; R06.02 Shortness of breath; F12.90 Cannabis use, unspecified, uncomplicated; Z77.22 Contact with and (suspected) exposure to environmental tobacco smoke (acute) (chronic)
CPT/HCPCS: 80053; 83690; 84484; 85025; 93005; 96361; 96374; 96375; 99283; J7030; A4216; J2405

== ENCOUNTER → 2022-01-26 | Outpatient (CLI) | payer MEDICAID, SELFPAY ==
[2022-01-26 16:40] LABS: Absolute Lymphocyte Count 3.34 X10^3/uL (0.83-4.51); Absolute Neutrophil Count 5.9 X10^3/uL (2.0-7.7); Basophil# 0.03 X10^3/uL; Basophil% 0.3 % (0-1); Eosinophil# 0.18 X10^3/uL; Eosinophils% 1.8 % (0-5); Hematocrit 37.5 % (37-47); Hemoglobin 11.4 g/dL (12.0-15.0); Lymphocyte # 3.34 X10^3/ul (0.83-4.51); Lymphocyte % 33.4 % (19-41); Mean Corp Hgb Conc 30.4 g/dL (32-36); Mean Corpuscular Hgb 20.9 pg (27.0-32.0); Mean Corpuscular Volume 68.7 fL (81-99); Mean Platelet Vol. 10.5 fl (6.2-12.0); Monocyte# 0.52 X10^3/uL; Monocyte% 5.2 % (0-10); NRBC Flagged by Analyzer 0 % (0-5); Neutrophil # 5.89 X10^3/uL (2.7-7.7); Neutrophil % 58.9 % (47-70); Platelet Count 330 K/mm3 (150-450); RBC Distribution Width CV 17.2 % (11.6-14.6); RBC Distribution Width SD 40.6 fl (35.1-43.9); Red Blood Count 5.46 M/mm3 (4.2-5.4)
[2022-01-26 17:34] LABS: ALB/GLOB Ratio 0.8 RATIO (0.9-2.4); AST(SGOT) 184 U/L (15-37); Alanine Aminotransfer ALT/SGPT 228 U/L (13-56); Albumin, Serum 3.4 g/dL (3.2-5.0); Alkaline Phosphatase 280 U/L (45-117); Anion Gap 5 (5-15); BUN 13 mg/dL (7-18); BUN/Creat Ratio 14.5 RATIO (10-20); Chloride 110 mmol/L (98-107); EST Glomerular Filtration Rate 85 mL/min (>60); Est Glom Filt Rate - Afr Amer 103 mL/min (>60); Glucose 84 mg/dL (74-106); Potassium 3.7 mmol/L (3.5-5.1); Protein, Total 7.4 g/dL (6.4-8.2); Sodium Level 141 mmol/L (136-145)
== END | disposition home or self-care (01) ==
LOC: BIMLAB 15:54
PROVIDERS: PCP Internal Medicine; Referring Provider Internal Medicine; Visit Provider Internal Medicine
DX: R74.8 Abnormal levels of other serum enzymes (principal); R10.10 Upper abdominal pain, unspecified
CPT/HCPCS: 36415; 80053; 80074; 85025

== ENCOUNTER → 2022-02-02 | Outpatient (CLI) | payer MEDICAID, SELFPAY ==
[2022-02-02 16:03] LABS: ALB/GLOB Ratio 0.8 RATIO (0.9-2.4); AST(SGOT) 23 U/L (15-37); Alanine Aminotransfer ALT/SGPT 60 U/L (13-56); Albumin, Serum 3.4 g/dL (3.2-5.0); Alkaline Phosphatase 141 U/L (45-117); Anion Gap 7 (5-15); BUN 11 mg/dL (7-18); Calcium,Total 9.1 mg/dL (8.5-10.1); Chloride 110 mmol/L (98-107); Creatinine, Serum 0.69 mg/dL (0.55-1.02); EST Glomerular Filtration Rate 116 mL/min (>60); Est Glom Filt Rate - Afr Amer 140 mL/min (>60); Globulin 4.1 g/dL (2.2-4.2); Glucose 81 mg/dL (74-106); Potassium 4.2 mmol/L (3.5-5.1); Protein, Total 7.5 g/dL (6.4-8.2); Sodium Level 141 mmol/L (136-145)
[2022-02-05 14:32] LABS: ANTINUCLEAR ANTIBODIES DIRECT Negative (Negative)
[2022-02-05 14:46] LABS: Anti-Smooth Muscle ABS 6 Units (0-19)
== END | disposition home or self-care (01) ==
LOC: BIMLAB 11:49
PROVIDERS: PCP Internal Medicine; Referring Provider Internal Medicine; Visit Provider Internal Medicine
DX: R10.10 Upper abdominal pain, unspecified (principal); R74.8 Abnormal levels of other serum enzymes
CPT/HCPCS: 36415; 80053; 83516; 86038; 86225; 86235

== ENCOUNTER → 2022-02-05 | Outpatient (CLI) | payer MEDICAID, SELFPAY ==
--- NOTE | 2022-02-05 08:34 | US_ITS ---
STUDY: ABDOMINAL ULTRASOUND - RIGHT UPPER QUADRANT REASON FOR VISIT: Female, 21 years old RUQ pain TECHNIQUE: Ultrasound evaluation of the right upper quadrant was performed with real-time and static ortiz-scale imaging. TECHNICAL QUALITY: Adequate. COMPARISON: None. FINDINGS: Visualized liver parenchyma shows homogeneous echotexture. There or multiple small layering stones in the gallbladder. No gallbladder wall thickening or pericholecystic fluid is seen. Sonographic Millan''s sign has been reported negative. Common bile duct measures 0.4 cm in diameter. Visualized pancreatic head and body, portal vein, and right kidney are unremarkable. There is no free fluid in the Parnell''s pouch. US/Abdomen Limited IMPRESSION: Cholelithiasis. No biliary dilatation. Electronically Signed: Dwayne Mcneal MD at 18:49 EDT ,
== END | disposition home or self-care (01) ==
LOC: US 08:33
PROVIDERS: PCP Internal Medicine; Referring Provider Internal Medicine; Visit Provider Internal Medicine
DX: R74.8 Abnormal levels of other serum enzymes (principal); R10.10 Upper abdominal pain, unspecified
CPT/HCPCS: 76705

== ENCOUNTER 2022-03-12 09:40 | Day surgery (SDC) | payer MEDICAID, SELFPAY ==
[2022-03-12] VITALS (10 sets, daily range): BP systolic 95–133; BP diastolic 56–82; PULSE 63–94; RESP 16–20; TEMP 35.9–36.2; O2SAT 96–99; BMI 47.5
--- NOTE | 2022-03-12 09:49 | EKG12_ITS ---
Test Reason : Blood Pressure : / mmHG Vent. Rate : 085 BPM Atrial Rate : 085 BPM P-R Int : 148 ms QRS Dur : 094 ms QT Int : 398 ms P-R-T Axes : 066 023 047 degrees QTc Int : 473 ms Normal sinus rhythm Normal ECG When compared with ECG of 22-JAN-2022 13:23, No significant change was found Confirmed by DEVANG VARELA, CHLOE ([id number]), editor managing director JESUS LAO ([id number]) on 03/17/2022 10:21:06 AM Referred By: Wesley Roe Confirmed By:CHLOE SIDDIQI MD
[2022-03-12] MEDS: Lactated Ringers 1,000 ML 15 ML IV (10:00)
--- NOTE | 2022-03-12 10:05 | HP.PCM_ITS ---
History and Physical Date of Admission: 03/12/22 Intake Vital Signs ? 03/10/2208:02 Height 5 ft 9 in Weight: 326 lb BMI 48.1 BP 122/79 H Blood Pressure LocationB Rt brachial Position Sitting Respiration 18 Intake Visit Reasons:?GALLSTONES Chief Complaint: gallstones Garment Alteration Examiner Required: No Is patient in pain?: Yes (ruq abdomen) Allergies No Known Allergies Allergy (Verified 03/10/22 07:54) Medications albuterol 90 mcg/actuation aerosol inhaler mcg inhalation 01/26/22 [History Confirmed 03/10/22] PFSH Medical History? Abnormal glucose affecting ADHD Anemia Anxiety Asthma Chest pain COVID-19 Depression Fatigue Genital herpes affecting History of asthma Left lower quadrant pain Marijuana abuse Severe headache Shortness of breath Surgical History? S/P left knee arthroscopy S/P tonsillectomy Status post vaginal delivery Family History? Mother Lupus Sjogrens syndromeFather Sleep apneaGrandfather Brain cancer SeizuresGrandmother COPD (chronic obstructive pulmonary disease) Leukemia Social History? household members:? family current occupational status:? unemployed pets and animals:? Yes pets and animals: dog(s) Smoking Status:? Current every day smoker tobacco type: e-cigarettes Electronic Cigarette Use:? with nicotine second hand exposure:? Yes alcohol intake:? former details:? not currently due to substance use type:? former substance user and marijuana seatbelt use:? always do you feel safe at home:? Yes additional social history:? BF- Deauje Artiflex HPI HPI HPI: JACQUE CHAVEZ, is a 21 F who presents to the office today for right upper quadrant pain.? The patient has been having right upper quadrant pain for the past 2 months.? She says that it happens after eating it does not matter what she eats.? It last for 30 to 60 minutes.? It does radiate up to the sternum.? She does not describe any nausea or vomiting.? She says she is unable to eat because of the pain.? She recently had a baby. ROS General General: Yes weight change; No appetite, fatigue, colon cancer, breast cancer or weakness HEENT HEENT: No difficulty swallowing, eye injury, eye surgery, swollen glands or hoarseness Endo Endocrine: No thyroid disease, diabetes mellitus, thyroid cancer, Hair loss, heat intolerance or cold intolerance Skin Skin: No rash or changing moles Breast Breast: No left breast lump, right breast lump, nipple discharge, breast pain, abnormal mammogram, abnormal US or breast enlargement Musc Musculoskeletal: No back problems, arthritis, rheumatoid arthritis, gout or joint pain Cardio Cardiovascular: No murmur, pacemaker, heart disease, atrial fibrillation, high blood pressure, heart attack, heart stent, palpitations, shortness of breat with exertion or chest pain Psych Psychiatric: Yes depression and anxiety; No hearing voices Resp Respiratory: Yes shortness of breath, Yes sleep apnea, No cough, No COPD, Yes asthma, No emphysema and No wheezing Gastro Gastrointestinal: Yes abdominal pain, Yes nausea or vomiting, No diarrhea, No constipation, No blood in stool, No acid reflux, No hemorrhoids, No ulcers, Yes gallbladder problem and No black,tarry stools Jeffery Hematologic: No blood thinners, No blood disorders, No bleeding, No anemia and No blood clots Neuro Neurologic: No system reviewed and no additional complaints, except as documented, No as per HPI, No abnormal gait, No abnormal hearing, No abnormal movements, No abnormal speech, No behavioral changes, No burning sensations, No confusion, No convulsions, No disequilibrium, No dizziness, No localized weakness, No frequent falls, No headache(s), No lack of coordination, No loss of vision, No memory loss, No numbness, No other visual disturbances, No radicular pain, No restless legs, No sensory deficit, No syncope, No tingling, No tremor(s), No weakness and No other Exam Const General: cooperative Orientation: alert and oriented x3 HENMT Head: normal to inspection Neck Neck: normal visual inspection and full ROM Chest Chest palpation & inspection: normal inspection of the chest Resp Effort & Inspection: normal respiratory effort Auscultation: clear to auscultation bilaterally Cardio Rate: regular rate Rhythm: regular rhythm GI Inspection: non-distended Palpation: soft and tender in the RUQ Skin General: no rashes or lesions noted Neuro General: patient alert and patient oriented x3 Extrem General: full ROM Psych Appearance: grossly normal Mental Status: mental status grossly normal Assessment and Plan Assessment and Plan (1) Cholelithiasis: ?Status:?Acute (2) Biliary colic: ?Status:?Acute Plan The patient has right upper quadrant pain that is consistent with gallbladder etiology.? She did have an ultrasound which showed gallstones.? I recommended laparoscopic cholecystectomy. I discussed the procedure in detail with the patient.? I discussed the risks, benefits, and alternatives of the procedure.? I discussed the risks including but not limited to bleeding, infection, injury to surrounding organs such as the liver, bile duct, bowels.? I did discuss the possibility of having to convert to an open procedure as well as the possibility that if any injuries occurred this may necessitate further surgery at a tertiary care center. Wesley Roe MD Pager: [facility] [address] [place] [address], [address] [place] [address] Office: I have re-examined the patient. There are no clinical changes since date of exam.
[2022-03-12 10:08] LABS: Internal QC Validated? YES +Cl - CLEAR BKGD; Pregnancy, Urine Negative Negative
[2022-03-12] MEDS: Cefotetan 2 GM in 0.9% NS 100 ML IV (10:58)
--- NOTE | 2022-03-12 11:00 | GALL_PTH ---
PATIENT: JACQUE CHAVEZ LOC: [facility] – [place] U#:[id number] AGE/SX: 21/F ROOM: RE03/12/[address]: Dr. Wesley Roe MD : 2000 BED: DIS: 03/12/2022 SPEC #: [id number] RECD: 03/12/22 14:33 STATUS: JOSEPH MORRIS #: [id number] DARLINE: 03/12/22 11:[address]: Wesley Roe DEPT: SURGICAL PATHOLOGY RECD BY: Juan Quinn ENTERED: 03/13/22 06:56 SP TYPE: NEDA BAIRES DR: Dr. Debby Cxo MD Tissues: Gallbladder, NOS Procedures: Surgery Specimen Level III HEADER OPERATION: Laparoscopic cholecystectomy with IOC PRE-OP DIAGNOSIS: Biliary colic, cholelithiasis TISSUE SUBMITTED: Gallbladder and contents MICROSCOPIC DIAGNOSIS Gallbladder and contents, cholecystectomy: Chronic cholecystitis, cholelithiasis and focal cholesterolosis. ANDREIA:grace 03/16/2022 MICROSCOPIC DESCRIPTION Slides are reviewed. GROSS DESCRIPTION Received is one container labeled with the patient's name and designated gallbladder and contents. The specimen consists of a gallbladder measuring 9 cm in length and up to 3 cm in diameter. The external surface is pink-fernandez, smooth and glistening for the most part. Focally it is granular, hemorrhagic and contains cautery artifact. The gallbladder contains green-yellow mucoid bile and multiple mulberry, greenish-yellow stones measuring in aggregate 1.5 x 1 x 0.3 cm and 0.1 to 0.2 cm in greatest dimension. A few of the stones are also present in the cystic duct. The mucosa is bile-stained and without any mass lesions. The gallbladder wall measures up to 0.2 cm in thickness. Academic Affairs Manager sections from the gallbladder and the cystic duct are submitted in one cassette. / ANDREIA:grace 03/13/2022 TC:3 CPT: 92520
--- NOTE | 2022-03-12 11:00 | RAD_ITS ---
STUDY: INTRAOPERATIVE CHOLANGIOGRAM. REASON FOR EXAM: Female, 21 years old. Laparoscopic cholecystectomy. FLUOROSCOPY TIME (if supplied): ( 13.8 seconds ) minutes/seconds. A cine loop of 83 images was submitted. TECHNIQUE: An intraoperative Cholangiogram was performed by the surgeon. Imaging was submitted. COMPARISON: None. FINDINGS: The visualized intrahepatic biliary ducts are unremarkable. The common duct is unremarkable. Free flow of contrast is seen in the duodenum. RAD/Cholangiogram/ O R,Initial IMPRESSION: Unremarkable intraoperative cholangiogram. Electronically Signed: Manav Zelaya MD at 15:01 EDT ,
[2022-03-12] MEDS: Bupivacaine 0.25% 30 ML Vial (11:42)
--- NOTE | 2022-03-12 11:53 | PCM.OPRPT ---
Report of Operation Date of Procedure: 03/12/22 Pre-Operative Diagnosis: Cholelithiasis and chronic biliary colic Post-Operative Diagnosis: Same Surgery/Procedure Performed:: Laparoscopic cholecystectomy with cholangiogram Specimen's removed: Gallbladder Description of Procedure: After obtaining informed consent patient was brought back to the operating room. General anesthesia was induced. The abdomen was prepped and draped in usual sterile fashion. A small midline incision was made superior to the umbilicus and deepened to the level of fascia. The fascia was elevated and incised. Next the peritoneum was elevated and incised in the same fashion. Finger sweep was performed and the Quinonez trocar was placed into the abdomen. The balloon was inflated. The abdomen was inflated to 15 mmHg. Next a camera was introduced into the abdomen and the abdomen was inspected. Next under direct visualization three 5-mm ports were placed one subxiphoid and 2 subcostal. Next the gallbladder was elevated and retracted toward the right shoulder. The peritoneum was stripped from the gallbladder. The infundibulum was located and retracted laterally. Next the triangle of Calot was dissected and the cystic duct and cystic artery were identified. Cholangiograms were performed. The Jimenez clamp was used to clamp across the infundibulum and the catheter needle was inserted into the gallbladder. Under fluoroscopy contrast was instilled into the gallbladder and the common duct, cystic duct as well as proximal hepatic ducts were identified. There was good filling of the duodenum. There were no filling defects noted in the common bile duct. The clamp was removed as well as the needle and the infundibulum was grasped once more. Three hemolock clips were placed across the cystic duct. The cystic duct was then divided leaving 2 clips on the stump. The cystic artery was clipped and divided in the same fashion. The hook cautery was then used to take the gallbladder off of the gallbladder bed. Hemostasis was obtained. Gallbladder fossa was irrigated and no active bleeding or bile leakage was noted. Next the camera was introduced in the subxiphoid port. An Endopouch bag was placed through the umbilical port and the gallbladder was placed into it. The gallbladder was then removed through the umbilical incision. The camera was then reinserted through the umbilical port. The gallbladder fossa was inspected once more and noted to be hemostatic with no leaking bile. The abdomen was suctioned dry. The 5 mm ports were removed under direct visualization. The umbilical port was then removed and the air was removed from the abdomen. Next using an 0 Vicryl suture the umbilical fascia was closed in a [id number] fashion. The umbilical port site was irrigated local anesthetic was administered to all the incisions. All the incisions were closed with interrupted subcuticular 4-0 Monocryl sutures followed by Steri-Strips and dressings. The patient was awoken and taken to PACU in stable condition. Admit VTE Documentation VTE Mechan Device Prophylaxis: SCD's
--- NOTE | 2022-03-12 11:54 | DCINST_ITS ---
Discharge Instructions Procedure Gallbladder Diet Discharge Diet: Light diet - advance as tolerated Activity Discharge Activity: May Not Drive (for 2-3 days or while taking narcotic pain medications.) and - (Do not drive, work heavy equipment or sign legal documents for 24 hours.) May shower in (days): 1 Lifting Restrictions: 20 lbs for 2 weeks Additional Activity Instructions:: Pain medication may cause nausea. You should typically eat light foods as you take your pain medications. Pain medication may also cause constipation. If this is a problem for you, please discuss with your doctor. Dressing / Incision Call your doctor if your incision/area has: Continuous Slow Oozing, Sudden Increased Bleeding, Increased Pain/ Swelling, Increased Redness and Foul Smelling Discharge Call your doctor if you observe: Fever of 101 or Higher Suture Line Care: Avoid Pulling/Pushing and Avoid Pinching/Bending Remove Dressing in: 2 days Additional Dressing/Incision Instructions:: Leave operative bandaids on for 2 days. When you remove dressing, leave Steri-Strips on until your follow-up appointment, or until the Steri-Strips fall off on their own. Follow Up Care Please Follow Up With: Wesley Roe MD When: Please call to schedule 2 week follow up appointment. [phone] Test Results: Test results from this visit will be discussed in further detail at your follow- up appointment, if applicable. Discharge Plan Admission Attending Provider: Wesley Roe Primary Care Provider: Debby Cox Instructions Additional Instructions / Restrictions: Ibuprofen and tylenol for pain, percocet for breakthrough Discharge Orders/Prescriptions Prescriptions: New oxycodone-acetaminophen [Percocet] 5-325 mg tablet 1 tab PO Q4H PRN (Reason: pain) 5 Days Qty: 20 0RF Referrals / Follow Up: Debby Cox MD [Primary Care Provider] - Disposition Disposition (needs filled in before D/C Order can be placed): Home, Self Care
[2022-03-12] MEDS: Acetaminophen 325 MG Tablet PO (14:15)
[2022-03-12] MEDS: oxyCODONE 5 MG Tablet PO (14:15)
== END 2022-03-12 15:07 | disposition home or self-care (01) ==
LOC: SDC 09:41 → AC 09:42
PROVIDERS: Anesthesiology; PCP Internal Medicine; Referring Provider Surgery; Visit Provider Surgery
PROC: (CPT 47610; principal; 2022-03-12 10:40)
DX: K80.10 Calculus of gallbladder with chronic cholecystitis without obstruction (principal); F17.290 Nicotine dependence, other tobacco product, uncomplicated; Z86.16 Personal history of COVID-19
CPT/HCPCS: 47563; 00790; 74300; 76000; 81025; 88304; 93005; J7120; J2405

== ENCOUNTER 2022-09-27 20:23 | Emergency (ER) | payer MEDICAID, SELFPAY ==
[2022-09-27 20:24] VITALS: BP 139/90; PULSE 88; RESP 16; TEMP 35.8; O2SAT 100; BMI 47.2
--- NOTE | 2022-09-27 20:38 | EX.ED.DYSGE1 ---
HPI <ELLEN Ventura - Last Filed: 09/27/22 20:49> History of Present Illness Chief Complaint: Lower Extremity Injury Narrative Narrative: Patient is a 21-year-old female history of asthma who presents to the emergency department for concern of right foot infection. Patient had to butterfly tattoos on the top of her foot that was done at home, patient states that over the last 24 hours got more red and swollen she is concerned for infection. She does states that it throbs, she also has a feeling of numbness and tingling in her toes. She denies any fever or chills. She denies any systemic like symptoms patient denies any history of MRSA. PFSH <ELLEN Ventura - Last Filed: 09/27/22 20:49> PFSH Medical History Abnormal glucose affecting ADHD Anemia Anxiety Asthma Chest pain COVID-19 Depression Fatigue Genital herpes affecting History of asthma Hx of blood diseases Left lower quadrant pain Marijuana abuse Wears glasses Home Medications cephalexin 500 mg capsule 500 mg PO Q6 #40 CAPSULES 09/27/22 [Rx Last Taken Unknown] Allergy/AdvReac Type Severity Reaction Status Date / Time No Known Allergies Allergy Verified 09/27/22 20:40 Family History Mother Lupus Sjogrens syndrome Father Sleep apnea Grandfather Brain cancer Seizures Grandmother COPD (chronic obstructive pulmonary disease) Leukemia Surgical History S/P left knee arthroscopy S/P tonsillectomy Status post vaginal delivery Social History household members: family current occupational status: unemployed pets and animals: Yes pets and animals: dog(s) Smoking Status: Current every day smoker tobacco type: e-cigarettes Electronic Cigarette Use: with nicotine second hand exposure: Yes alcohol intake: former details: not currently due to substance use type: former substance user and marijuana seatbelt use: always do you feel safe at home: Yes additional social history: BF- De[employer] ROS <ELLEN Ventura - Last Filed: 09/27/22 20:49> ROS ED ROS Narrative Constitutional: Negative for fever, chills, weight loss, weakness Eyes: Negative for vision loss, vision change, double vision ENT: Negative for any sore throat, ear pain, congestion Cardiovascular: Negative for any chest pain, tightness, palpitations Respiratory: Negative for any cough, sputum production, hemoptysis, dyspnea, dyspnea on exertion, orthopnea Gastrointestinal: Negative for any abdominal pain, nausea, vomiting, diarrhea, constipation, blood in stool, blood in vomit : Negative for any urinary frequency, dysuria, retention, blood in urine Muscle skeletal: Negative for any muscle joint pain, stiffness, myalgias, arthralgias, neck pain, back pain. Positive for right foot pain Neurological: Negative for any headache, syncope, numbness or tingling, dizziness Skin: Negative for any rashes, lumps, itching, abrasions, lacerations. Positive for swelling, redness of the right foot Psychiatric: Negative for any depression, anxiety, stress, suicidal ideation, homicidal ideation Hematologic: Negative for any easy bruising, excessive bruising, easy bleeding Allergies: Negative for any eczema, hives, rash EXAM <ELLEN Ventura - Last Filed: 09/27/22 20:49> Physical Exam Narrative Exam Narrative: Vital signs reviewed. Extremities: no signs of gross trauma or deformity. Active full range of motion of all extremities. Patient has redness, edema to the dorsal aspect of the foot around the tattoo. There is no gross drainage, there is no skin breakdown. Patient states that she has numbness and tingling to her toes however she feels me touching them. She is able move all the digits. Neuro: Cranial nerves II through XII intact, no focal neurological deficits. Skin: Clean dry and intact with no rash, purpura, petechiae, vesicles or pustules. Backs/flank: No CVA tenderness, no midline spinal tenderness, no deformity. Psych: Normal mood and affect. No SI, HI or acute psychosis. Const Vital Signs: 09/27/22 20:24 Temperature 96.5 F L Temperature Source Temporal Pulse Rate 88 Respiratory Rate 16 Blood Pressure 139/90 H Blood Pressure Mean 106 Pulse Ox 100 Oxygen Delivery Method Room Air <Dr. Jerome Cassidy DO - Last Filed: 09/27/22 20:56> Physical Exam Const Vital Signs: 09/27/22 20:24 Temperature 96.5 F L Temperature Source Temporal Pulse Rate 88 Respiratory Rate 16 Blood Pressure 139/90 H Blood Pressure Mean 106 Pulse Ox 100 Oxygen Delivery Method Room Air [facility] <ELLEN Ventura - Last Filed: 09/27/22 20:49> [facility] Treatment and Re-Evaluation Narrative: Patient appears well, patient appears nontoxic, vital signs are stable. Patient presents to the emergency department with complaints of right foot swelling, right foot redness secondary to a infected tattoo. Patient's physical examination is consistent with cellulitis. There is no evidence of any deep tissue infection, no S evidence of osteomyelitis. Considered a x-ray of the right foot however this appears to be a superficial skin infection. Patient will be started on Keflex, she be placed on Keflex 4 times a day for 10 days. Patient will also keep her foot elevated. Dressing placed as well as cleaning with soap and water. Patient is happy with the plan of care. Patient instructed to return for worsening redness, fever chills nausea vomiting. Patient stable for discharge <Dr. Jerome Cassidy DO - Last Filed: 09/27/22 20:56> [facility] Narrative Medical decision making narrative: This patient was seen with a PA/COAT EXAMINER Individually assessed they patient including history and physical. I have reviewed everything on the chart that is available and agree with the documentation provided by the PA/COAT EXAMINER including discussion about the assessment, treatment plan, discussion, and return precautions. Patient appears well, patient appears nontoxic, vital signs are stable. Patient presents to the emergency department with complaints of right foot swelling, right foot redness secondary to a infected tattoo. Patient's physical examination is does show dependent edema. Unclear if this actually cellulitis or erythema from the tattoo itself. There is significant tenderness without crepitance. There is no evidence of any deep tissue infection, no evidence of osteomyelitis. Considered a x-ray of the right foot however this appears to most be a superficial skin infection. Patient will be covered with Keflex, she be placed on Keflex 4 times a day for 10 days. Patient will also keep her foot elevated. Dressing placed as well as cleaning with soap and water. Patient is happy with the plan of care. Patient instructed to return for worsening redness, fever chills nausea vomiting. Patient stable for discharge Impression: 1. Right foot cellulitis Lab Data Attestation: I reviewed the patient's lab results. Discharge Plan Triage Chief Complaint: Lower Extremity Injury ED Midlevel Provider: Bill Forbes ED Provider: Jerome Cassidy Dx/Rx/DC Orders Clinical Impression: Acute foot pain, Cellulitis Instructions: ED Cellulitis Prescriptions: New cephalexin 500 mg capsule 500 mg PO Q6 Qty: 40 0RF Primary Care Provider: Debby Cox Referrals: Debby Cox MD [Primary Care Provider] - Activity Restrictions/Additional Instructions: Keep your foot elevated. Return for worsening redness, fever or chills. Disposition Disposition: Home, Self Care Discharge Date/Time: 09/27/22 20:52
[2022-09-27] MEDS: Cephalexin 250 MG Capsule 500 MG PO (20:44)
== END 2022-09-27 20:52 | disposition home or self-care (01) ==
PROVIDERS: Emergency Provider Student in an Organized Health Care Education/Training Program; PCP Internal Medicine; Visit Provider Student in an Organized Health Care Education/Training Program
DX: L03.115 Cellulitis of right lower limb (principal); F17.210 Nicotine dependence, cigarettes, uncomplicated; Z82.5 Family history of asthma and other chronic lower respiratory diseases; R60.9 Edema, unspecified
CPT/HCPCS: 99283

== ENCOUNTER → 2022-10-02 | Outpatient (CLI) | payer MEDICAID, SELFPAY ==
[2022-10-07 05:07] LABS: Chlamydia By Nucleic Acid AMP Negative (Negative)
[2022-10-07 20:14] LABS: Gonococcus By Nucleic Acid AMP Negative (Negative)
== END | disposition home or self-care (01) ==
PROVIDERS: PCP Internal Medicine; Referring Provider Obstetrics & Gynecology; Visit Provider Obstetrics & Gynecology
DX: Z11.3 Encounter for screening for infections with a predominantly sexual mode of transmission (principal)
CPT/HCPCS: 87491; 87591

== ENCOUNTER 2022-11-03 15:36 | Emergency (ER) | payer MEDICAID, SELFPAY ==
[2022-11-03 15:37] VITALS: BP 147/98; PULSE 95; RESP 18; TEMP 36.4; O2SAT 100
[2022-11-03 15:42] VITALS: BMI 51.7
--- NOTE | 2022-11-03 15:48 | ED.VIS.DENTA ---
HPI History of Present Illness Chief Complaint: Dental Informant: patient Narrative Narrative: Patient had dental extraction about a week ago. She was doing well until about 2 days ago. She got a piece of corn stuck in her tooth. When she pulled that out she had a little bleeding. Since then the pain is increased. Of note, she is also still smoking. Patient called her dentist but they cannot get her back into see her for about a month and a half. Therefore they recommend she go to the nearest emergency department. They had also recommended she avoid smoking. Patient is not having fevers or chills. No trouble swallowing. No bleeding at this time. [facility] Medical History Abnormal glucose affecting ADHD Anemia Anxiety Asthma Chest pain COVID-19 Depression Fatigue Genital herpes affecting History of asthma Hx of blood diseases Left lower quadrant pain Marijuana abuse Wears glasses Home Medications cephalexin 500 mg capsule 500 mg PO Q6 #40 CAPSULES 09/27/22 [Rx Last Taken Unknown] hydrocodone-acetaminophen 5-325mg 5mg-325mg 1 tab PO Q6H PRN PRN Pain 2 days #8 TABLETS 11/03/22 [Rx Last Taken Unknown] naproxen 500 mg tablet 500 mg PO BID #14 tabs 11/03/22 [Rx Last Taken Unknown] penicillin V potassium 500 mg tablet 500 mg PO 4X/DAY #40 tabs 11/03/22 [Rx Last Taken Unknown] Allergy/AdvReac Type Severity Reaction Status Date / Time No Known Allergies Allergy Verified 11/03/22 15:38 Family History Mother Lupus Sjogrens syndrome Father Sleep apnea Grandfather Brain cancer Seizures Grandmother COPD (chronic obstructive pulmonary disease) Leukemia Surgical History S/P left knee arthroscopy S/P tonsillectomy Status post vaginal delivery Social History household members: family current occupational status: unemployed pets and animals: Yes pets and animals: dog(s) Smoking Status: Current every day smoker tobacco type: e-cigarettes Electronic Cigarette Use: with nicotine second hand exposure: Yes alcohol intake: former details: not currently due to substance use type: former substance user and marijuana seatbelt use: always do you feel safe at home: Yes additional social history: BF- Deauje Artiflex ROS ROS ED Constitutional Constitutional ED: Denies chills, fever(s) or subjective ENT ENT ED: Reports other Details: See HPI Cardiovascular Cardiovascular: Denies chest pain Respiratory/Chest Respiratory/Chest: Denies cough or dyspnea Gastrointestinal Gastrointestinal: Denies nausea or vomiting Musculoskeletal Musculoskeletal: Denies neck pain Integumentary Denies rash Hematologic/Lymphatic Hematologic/Lymphatic: Denies easy bleeding or easy bruising EXAM Physical Exam Narrative Exam Narrative: Patient awake alert no acute distress. She is sitting comfortably in bed. HEENT shows no facial swelling. She does have signs of recent extraction. There is some erythema around this. There is no purulent drainage. No lower jaw swelling or pain. Floor the mouth is soft. No sign of Ludewig's. Handle secretions well. No facial or sinus area tenderness. Neck shows no lymphadenopathy or stridor. Lungs are clear. Heart is regular. Neurologically she is awake alert and appropriate. Const Vital Signs: 11/03/22 15:37 Temperature 97.6 F L Temperature Source Temporal Pulse Rate 95 Respiratory Rate 18 Blood Pressure 147/98 H Blood Pressure Mean 114 Pulse Ox 100 Oxygen Delivery Method Room Air MDM MDM MDM Narrative Medical decision making narrative: Patient was encouraged to avoid smoking. This can contribute to dry socket problems. However, she does have some erythema and increasing pain. I will start her on some antibiotics. We will give her nonsteroidals. I will give her a few hydrocodone. I have encouraged her to follow-up with dentist as they may need to pull some of the gums around this area for further coverage or to get a look at this. I recommend that she call them because they need to be able to follow-up with their extraction. I did access the [facility] online prescribing report. Her last narcotic was about a year and a half ago or more. I think she is seeking pain relief but not seeking pain medications. Discharge Plan Triage Chief Complaint: Dental ED Provider: Mikal Ann Dx/Rx/DC Orders Clinical Impression: Pain, dental Instructions: Dental Abscess, ED Dental Pain Prescriptions: New hydrocodone-acetaminophen [hydrocodone-acetaminophen] 5-325 mg tablet 1 tab PO Q6H PRN PRN (Reason: Pain) 2 Days Qty: 8 0RF penicillin V potassium 500 mg tablet 500 mg PO 4X/DAY Qty: 40 0RF naproxen 500 mg tablet 500 mg PO BID Qty: 14 0RF No Action cephalexin 500 mg capsule 500 mg PO Q6 Qty: 40 0RF Primary Care Provider: Debby Cox Referrals: Debby Cox MD [Primary Care Provider] - Activity Restrictions/Additional Instructions: Follow-up with your dentist as soon as possible Disposition Disposition: Home, Self Care
[2022-11-03 15:56] VITALS: BP 124/69; PULSE 72; RESP 16; O2SAT 97
== END 2022-11-03 16:05 | disposition home or self-care (01) ==
PROVIDERS: Emergency Provider Emergency Medicine; PCP Internal Medicine; Visit Provider Emergency Medicine
DX: K08.89 Other specified disorders of teeth and supporting structures (principal); F17.210 Nicotine dependence, cigarettes, uncomplicated; Z86.16 Personal history of COVID-19
CPT/HCPCS: 99282

== ENCOUNTER 2022-11-18 15:23 | Emergency (ER) | payer MEDICAID, SELFPAY ==
[2022-11-18 15:26] VITALS: BP 132/88; PULSE 82; RESP 18; TEMP 37.1; O2SAT 98; BMI 39.9
--- NOTE | 2022-11-18 16:00 | ED.RN ---
pt states she will come back later when it is not as busy
== END 2022-11-18 16:00 | disposition left against medical advice (07) ==
LOC: ED 16:03
PROVIDERS: PCP Internal Medicine
DX: Z30.431 Encounter for routine checking of intrauterine contraceptive device (principal)

== ENCOUNTER 2022-11-18 17:40 | Emergency (ER) | payer MEDICAID, SELFPAY ==
[2022-11-18 17:41] VITALS: BP 139/82; PULSE 105; RESP 16; TEMP 36.6; O2SAT 98; BMI 40.5
== END 2022-11-18 19:45 | disposition left against medical advice (07) ==
LOC: ED 21:06
PROVIDERS: PCP Internal Medicine
DX: R10.9 Unspecified abdominal pain (principal); R10.2 Pelvic and perineal pain

== ENCOUNTER → 2022-11-30 | Outpatient (CLI) | payer MEDICAID, SELFPAY ==
[2022-11-30 10:27] LABS: HIV - WCH Non-Reactive (Nonreactive); Hepatitis C Antibody Non-Reactive (Nonreactive); Syphilis Antibodies Non-reactive
[2022-12-01 08:18] LABS: HSV 1 IgG < 0.91 index (0.00-0.90); HSV 2 IgG 8.92 index (0.00-0.90)
[2022-12-02 00:07] LABS: Chlamydia By Nucleic Acid AMP Negative (Negative); Gonococcus By Nucleic Acid AMP Negative (Negative)
== END | disposition home or self-care (01) ==
LOC: PAVLAB 08:57
PROVIDERS: PCP Internal Medicine; Referring Provider Nurse Practitioner Women's Health; Visit Provider Nurse Practitioner Women's Health
DX: Z20.2 Contact with and (suspected) exposure to infections with a predominantly sexual mode of transmission (principal); N89.8 Other specified noninflammatory disorders of vagina
CPT/HCPCS: 36415; 86695; 86696; 86703; 86780; 86803; 87070; 87205; 87491; 87591

== ENCOUNTER 2022-12-29 12:10 | Emergency (ER) | payer MEDICAID, SELFPAY ==
[2022-12-29 12:11] VITALS: BP 153/83; PULSE 91; RESP 16; TEMP 36.8; O2SAT 100; BMI 51.5
--- NOTE | 2022-12-29 12:33 | ED.VIS.FEGU ---
HPI HPI - Female History of Present Illness Chief Complaint: Vag Bld, Preg Informant: patient Narrative Narrative: Patient presents secondary to vaginal bleeding. She states she woke this morning with heavy vaginal bleeding running down her legs. She denies significant abdominal cramping. Patient states that she had her IUD removed on November 27. 2 days ago she took 2 test that were positive. This would be her second . Her blood type is a positive. PFSH PFS Medical History Abnormal glucose affecting ADHD Anemia Anxiety Asthma Chest pain COVID-19 Depression Fatigue Genital herpes affecting History of asthma Hx of blood diseases Left lower quadrant pain Marijuana abuse Wears glasses Home Medications norgestimate 0.25 mg-ethinyl estradiol 35 mcg tablet (Sprintec (28)) 1 tab PO QDAY #84 tabs 11/30/22 [Rx Last Taken Unknown] Allergy/AdvReac Type Severity Reaction Status Date / Time No Known Allergies Allergy Verified 12/29/22 12:12 Family History Mother Lupus Sjogrens syndrome Father Sleep apnea Grandfather Brain cancer Seizures Grandmother COPD (chronic obstructive pulmonary disease) Leukemia Surgical History S/P cholecystectomy S/P left knee arthroscopy S/P tonsillectomy Status post vaginal delivery Status post vaginal delivery Social History household members: family current occupational status: unemployed pets and animals: Yes pets and animals: dog(s) Smoking Status: Current every day smoker tobacco type: e-cigarettes Electronic Cigarette Use: with nicotine second hand exposure: Yes alcohol intake: former details: not currently due to substance use type: former substance user and marijuana seatbelt use: always do you feel safe at home: Yes additional social history: BF- Deauje Artiflex ROS ROS ED Constitutional Constitutional ED: Denies chills or fever(s) Eyes Eyes: Denies discharge from eye(s) ENT ENT ED: Denies discharge from eye(s), rhinorrhea or sore throat Cardiovascular Cardiovascular: Denies chest pain Respiratory/Chest Respiratory/Chest: Denies cough or dyspnea Gastrointestinal Gastrointestinal: Denies abdominal pain, nausea or vomiting Genitourinary Genitourinary ED: Reports other Details: Vaginal bleeding ; Denies dysuria Musculoskeletal Musculoskeletal: Denies back pain or extremity pain Integumentary Denies Abrasions or rash Neurologic Neurologic: Denies headache(s) or weakness Psychiatric Psychiatric: Denies anxiety or depression Allergic/Immunologic Allergic/Immunologic ED: Denies lip swelling or urticaria EXAM Physical Exam Const Vital Signs: 12/29/22 12:11 Temperature 98.2 F Temperature Source Temporal Pulse Rate 91 Respiratory Rate 16 Blood Pressure 153/83 H Blood Pressure Mean 106 Pulse Ox 100 Oxygen Delivery Method Room Air Positive well nourished and well developed General Appearance ED: well developed HEENT Reports normocephalic and head/scalp atraumatic Eyes PERRL and EOMs intact bilaterally Neck supple Chest Wall inspection of chest normal and palpation of chest normal Resp normal respiratory effort and clear to auscultation bilaterally Cardio regular rate and regular rhythm GI normal to inspection, nondistended, normoactive bowel sounds Palpation: soft Extremity normal to inspection Neuro oriented x3 and no sensory deficits noted Sensorium / Orientation: alert Motor Exam: strength 5/5 throughout Psych mental status grossly normal Skin no rashes or lesions noted MDM MDM MDM Narrative Medical decision making narrative: Labwork obtained to evaluate for leukocytosis, anemia, and electrolyte derangement. On review of records patient's blood type is a positive. Lab Data Labs: Laboratory Results - last 24 hr 12/29/22 12/29/22 12/29/22 12:42 12:42 12:42 WBC 9.6 RBC 5.64 H Hgb 12.5 Hct 40.8 MCV 72.3 L MCH 22.2 L MCHC 30.6 L RDW Std Deviation 46.2 H RDW Coeff of Nancy 18.3 H Plt Count 274 MPV 9.9 Immature Gran % (Auto) 0.700 Neut % (Auto) 59.4 Lymph % (Auto) 33.0 Gem % (Auto) 5.6 Eos % (Auto) 0.9 Baso % (Auto) 0.4 Absolute Neuts (auto) 5.7 Absolute Lymphs (auto) 3.16 Nucleated RBC % 0 Sodium 139 Potassium 4.2 Chloride 108 H Carbon Dioxide 25.0 Anion Gap 6 BUN 8 Creatinine 0.64 Estim Creat Clear Calc 145.32 Est GFR (MDRD) Af Amer 151 Est GFR (MDRD) Non-Af 125 BUN/Creatinine Ratio 12.6 Glucose 92 Calcium 8.5 HCG, Quant < 1 Treatment and Re-Evaluation Narrative: CBC is unremarkable with normal hemoglobin. Chemistry studies normal. hCG quant is less than 1. Test results are discussed with the patient. I advised her that her home test were likely erroneous and that at this time I see no evidence of . Given the fact that she has not had a regular period since last June I suspect that she will bleed heavier for the first month or 2 as her hormones are evening out with removal of her IUD. 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 Discharge Plan Triage Chief Complaint: Vag Bld, Preg ED Provider: Karlee Burgess Dx/Rx/DC Orders Clinical Impression: Menorrhagia Instructions: ED Heavy Menstrual Bleeding Prescriptions: No Action norgestimate-ethinyl estradiol [Sprintec (28)] 0.25-35 mg-mcg tablet 1 tab PO QDAY Qty: 84 4RF Primary Care Provider: Debby Cox Referrals: Debby Cox MD [Primary Care Provider] - Karlee Cueva DO [Med Staff - Active Staff] - 1-2 Weeks Disposition Disposition: Home, Self Care
[2022-12-29] MEDS: 0.9% Normal Saline 1,000 ML 150 ML IV (12:46)
[2022-12-29 12:49] LABS: Absolute Lymphocyte Count 3.16 X10^3/uL (0.83-4.51); Absolute Neutrophil Count 5.7 X10^3/uL (2.0-7.7); Basophil# 0.04 X10^3/uL; Basophil% 0.4 % (0-1); Eosinophil# 0.09 X10^3/uL; Eosinophils% 0.9 % (0-5); Hematocrit 40.8 % (37-47); Hemoglobin 12.5 g/dL (12.0-15.0); Lymphocyte # 3.16 X10^3/ul (0.83-4.51); Mean Corp Hgb Conc 30.6 g/dL (32-36); Mean Corpuscular Hgb 22.2 pg (27.0-32.0); Mean Corpuscular Volume 72.3 fL (81-99); Mean Platelet Vol. 9.9 fl (6.2-12.0); Monocyte# 0.54 X10^3/uL; Monocyte% 5.6 % (0-10); NRBC Flagged by Analyzer 0 % (0-5); Neutrophil # 5.67 X10^3/uL (2.7-7.7); Neutrophil % 59.4 % (47-70); Platelet Count 274 K/mm3 (150-450); RBC Distribution Width CV 18.3 % (11.6-14.6); RBC Distribution Width SD 46.2 fl (35.1-43.9); Red Blood Count 5.64 M/mm3 (4.2-5.4); White Blood Count 9.6 K/mm3 (4.4-11.0)
[2022-12-29 13:04] LABS: Anion Gap 6 (5-15); BUN 8 mg/dL (7-18); BUN/Creat Ratio 12.6 RATIO (10-20); Calcium,Total 8.5 mg/dL (8.5-10.1); Chloride 108 mmol/L (98-107); Creatinine, Serum 0.64 mg/dL (0.55-1.02); EST Glomerular Filtration Rate 125 mL/min (>60); Est Glom Filt Rate - Afr Amer 151 mL/min (>60); Estimated Creatinine Clearance 145.32 ml/min; Glucose 92 mg/dL (74-106); Potassium 4.2 mmol/L (3.5-5.1); Sodium Level 139 mmol/L (136-145)
[2022-12-29 13:18] LABS: hCG Titer Quant., Serum < 1 mIU/mL (1-3)
== END 2022-12-29 13:40 | disposition home or self-care (01) ==
PROVIDERS: Emergency Provider Emergency Medicine; PCP Internal Medicine; Visit Provider Emergency Medicine
DX: N92.0 Excessive and frequent menstruation with regular cycle (principal); Z90.49 Acquired absence of other specified parts of digestive tract; F17.290 Nicotine dependence, other tobacco product, uncomplicated
CPT/HCPCS: 80048; 84702; 85025; 99283; J7030; A4216

== ENCOUNTER 2023-03-11 11:43 | Emergency (ER) | payer MEDICAID, SELFPAY ==
[2023-03-11 11:43] VITALS: BP 132/87; PULSE 101; RESP 18; TEMP 36.6; O2SAT 98; BMI 49.8
--- NOTE | 2023-03-11 12:37 | RAD_ITS ---
STUDY: X-RAY CHEST REASON FOR EXAM: Female, 22 years old. Positive COVID test with bilateral rhonchi TECHNIQUE: Single AP portable view of the chest. COMPARISON: None. FINDINGS: The lungs are clear and expanded. There is no demonstrated pleural abnormality. Normal size heart. Normal mediastinum and dot. Normal visualized pulmonary arteries. Normal visualized aortic arch and descending thoracic aorta. Normal visualized thoracic spine. Normal visualized ribs, clavicles, and shoulders. There is no demonstrated abnormality of the visualized soft tissue structures of the upper abdomen. RAD/Chest 1 View (Portable) IMPRESSION: Normal x-ray examination of the chest. Electronically Signed: Manav Zelaya MD at 12:54 EDT ,
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
[2023-03-11 12:45] VITALS: BP 136/86; PULSE 86; RESP 20; TEMP 37.2; O2SAT 99
== END 2023-03-11 13:14 | disposition home or self-care (01) ==
PROVIDERS: Emergency Provider Emergency Medicine; PCP Internal Medicine; Visit Provider Emergency Medicine
DX: U07.1 COVID-19 (principal); Z79.3 Long term (current) use of hormonal contraceptives; Z90.49 Acquired absence of other specified parts of digestive tract; F17.290 Nicotine dependence, other tobacco product, uncomplicated
CPT/HCPCS: 71045; 94760; 99282

== ENCOUNTER 2023-03-14 03:20 | Emergency (ER) | payer MEDICAID, SELFPAY ==
[2023-03-14 03:22] VITALS: PULSE 140; RESP 30; TEMP 37.1; O2SAT 98; BMI 51.1
[2023-03-14 03:26] VITALS: BP 178/140; PULSE 130; RESP 31; O2SAT 99
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
[2023-03-14 03:57] LABS: Absolute Lymphocyte Count 4.39 X10^3/uL (0.83-4.51); Absolute Neutrophil Count 6.2 X10^3/uL (2.0-7.7); Basophil# 0.07 X10^3/uL; Basophil% 0.6 % (0-1); Eosinophil# 0.06 X10^3/uL; Eosinophils% 0.5 % (0-5); Hematocrit 43.2 % (37-47); Hemoglobin 13.5 g/dL (12.0-15.0); Lymphocyte # 4.39 X10^3/ul (0.83-4.51); Lymphocyte % 38.6 % (19-41); Mean Corp Hgb Conc 31.3 g/dL (32-36); Mean Corpuscular Hgb 22.4 pg (27.0-32.0); Mean Corpuscular Volume 71.8 fL (81-99); Mean Platelet Vol. 9.3 fl (6.2-12.0); Monocyte# 0.65 X10^3/uL; Monocyte% 5.7 % (0-10); NRBC Flagged by Analyzer 0 % (0-5); Neutrophil # 6.15 X10^3/uL (2.7-7.7); Neutrophil % 54.2 % (47-70); Platelet Count 341 K/mm3 (150-450); RBC Distribution Width CV 17.2 % (11.6-14.6); RBC Distribution Width SD 41.1 fl (35.1-43.9); Red Blood Count 6.02 M/mm3 (4.2-5.4); White Blood Count 11.4 K/mm3 (4.4-11.0)
[2023-03-14] MEDS: 0.9% Normal Saline 1,000 ML 1000 ML IV (03:57)
--- NOTE | 2023-03-14 04:03 | ED.RN ---
pt. requesting to leave AMA, did not want to wait to speak with Dr. Ann. PIV removed, pt. left with Aunt.
[2023-03-14 04:20] LABS: Anion Gap 9 (5-15); BUN 8 mg/dL (7-18); BUN/Creat Ratio 9.4 RATIO (10-20); Calcium,Total 8.6 mg/dL (8.5-10.1); Chloride 108 mmol/L (98-107); Creatinine, Serum 0.85 mg/dL (0.55-1.02); EST Glomerular Filtration Rate 89 mL/min (>60); Est Glom Filt Rate - Afr Amer 108 mL/min (>60); Estimated Creatinine Clearance 109.41 ml/min; Glucose 96 mg/dL (74-106); Potassium 3.4 mmol/L (3.5-5.1); Sodium Level 138 mmol/L (136-145)
== END 2023-03-14 04:07 | disposition left against medical advice (07) ==
LOC: ED 03:45
PROVIDERS: Emergency Provider Emergency Medicine; PCP Internal Medicine; Visit Provider Emergency Medicine
DX: F41.9 Anxiety disorder, unspecified (principal); F10.129 Alcohol abuse with intoxication, unspecified; F17.210 Nicotine dependence, cigarettes, uncomplicated; Z79.3 Long term (current) use of hormonal contraceptives; Z90.49 Acquired absence of other specified parts of digestive tract; F17.290 Nicotine dependence, other tobacco product, uncomplicated; Y90.5 Blood alcohol level of 100-119 mg/100 ml
CPT/HCPCS: 80048; 82077; 85025; 96360; 99285; J7030

== ENCOUNTER → 2023-06-29 | Outpatient (CLI) | payer MEDICAID, SELFPAY ==
[2023-06-29 12:40] LABS: Absolute Neutrophil Count 5.7 X10^3/uL (2.0-7.7); Basophil# 0.04 X10^3/uL; Basophil% 0.4 % (0-1); Eosinophil# 0.15 X10^3/uL; Eosinophils% 1.5 % (0-5); Hematocrit 42.8 % (37-47); Hemoglobin 13.1 g/dL (12.0-15.0); Lymphocyte % 36.4 % (19-41); Mean Corp Hgb Conc 30.6 g/dL (32-36); Mean Corpuscular Hgb 23.3 pg (27.0-32.0); Mean Platelet Vol. 10.1 fl (6.2-12.0); Monocyte# 0.59 X10^3/uL; Monocyte% 5.8 % (0-10); NRBC Flagged by Analyzer 0 % (0-5); Neutrophil # 5.66 X10^3/uL (2.7-7.7); Neutrophil % 55.6 % (47-70); Platelet Count 296 K/mm3 (150-450); RBC Distribution Width SD 43.7 fl (35.1-43.9); Red Blood Count 5.63 M/mm3 (4.2-5.4); White Blood Count 10.2 K/mm3 (4.4-11.0)
[2023-06-29 12:50] LABS: ALB/GLOB Ratio 0.7 RATIO (0.9-2.4); AST(SGOT) 100 U/L (15-37); Alanine Aminotransfer ALT/SGPT 162 U/L (13-56); Albumin, Serum 3.3 g/dL (3.2-5.0); Alkaline Phosphatase 84 U/L (45-117); Anion Gap 3 (5-15); BUN 9 mg/dL (7-18); BUN/Creat Ratio 12.2 RATIO (10-20); Calcium,Total 8.8 mg/dL (8.5-10.1); Chloride 108 mmol/L (98-107); Creatinine, Serum 0.74 mg/dL (0.55-1.02); EST Glomerular Filtration Rate 105 mL/min (>60); Est Glom Filt Rate - Afr Amer 127 mL/min (>60); Globulin 4.7 g/dL (2.2-4.2); Glucose 89 mg/dL (74-106); Potassium 4.3 mmol/L (3.5-5.1); Sodium Level 140 mmol/L (136-145)
[2023-06-29 13:35] LABS: Hemoglobin A1c 5.2 % (3.8-5.6)
[2023-06-29 14:44] LABS: Vitamin D,25 Hydroxy 25.8 ng/mL
== END | disposition home or self-care (01) ==
LOC: BIMLAB 10:55
PROVIDERS: PCP Internal Medicine; Visit Provider Internal Medicine
DX: F41.9 Anxiety disorder, unspecified (principal); E66.01 Morbid (severe) obesity due to excess calories; Z68.43 Body mass index [BMI] 50.0-59.9, adult; F32.9 Major depressive disorder, single episode, unspecified; Z13.1 Encounter for screening for diabetes mellitus; E55.9 Vitamin D deficiency, unspecified
CPT/HCPCS: 36415; 80053; 82306; 83036; 85025

== ENCOUNTER 2023-08-03 11:11 | Outpatient (RCR) | payer MEDICAID, SELFPAY | END 2023-08-15 23:59 | LOC: NS 11:11 | PROVIDERS: PCP Internal Medicine; Referring Provider Internal Medicine; Visit Provider Internal Medicine | DX: Z71.3 Dietary counseling and surveillance (principal); E66.01 Morbid (severe) obesity due to excess calories; Z68.43 Body mass index [BMI] 50.0-59.9, adult | CPT/HCPCS: 97802 ==

== ENCOUNTER → 2023-08-17 | Outpatient (CLI) | payer MEDICAID, SELFPAY ==
[2023-08-17 12:41] LABS: AST(SGOT) 63 U/L (15-37); Alanine Aminotransfer ALT/SGPT 137 U/L (13-56); Albumin, Serum 3.1 g/dL (3.2-5.0); Alkaline Phosphatase 77 U/L (45-117); Bilirubin, Direct 0.07 mg/dL (0.00-0.30); Globulin 4.1 g/dL (2.2-4.2); Protein, Total 7.2 g/dL (6.4-8.2)
[2023-08-17 13:08] LABS: HIV - WCH Non-Reactive (Nonreactive)
[2023-08-18 07:08] LABS: HEPATITIS B SURFACE AG Negative (Negative); Hep C Antibodies Non Reactive (Non Reactive); Hepatitis A IgM Antibody Negative (Negative); Hepatitis B Core AB IgM Negative (Negative)
== END | disposition home or self-care (01) ==
LOC: BIMLAB 09:39
PROVIDERS: PCP Internal Medicine; Visit Provider Internal Medicine
DX: R74.8 Abnormal levels of other serum enzymes (principal); Z11.3 Encounter for screening for infections with a predominantly sexual mode of transmission
CPT/HCPCS: 36415; 80074; 80076; 86703; 87491; 87591; 87661

== ENCOUNTER → 2023-09-06 | Outpatient (CLI) | payer MEDICAID, SELFPAY ==
--- OUTSIDE RECORDS SUMMARY | 2023-09-06 20:06 | XMS RPT_ITS | CCD ---
Author Name Unknown Address [address] [place] [address] Organization [facility] Care Team Providers Care Food Assembler Kitchen Name Role Phone Fabiola Arellano Unavailable Anaid Darlene N Unavailable Unavailable Primary Care Provider Unavailabl e KAMALA VARELA, MAYRA Rasheed Primary Care Physician ROBBIE GUTIÉRREZ DO Attending Unavailable MAYRA WRAY MD Primary Care Unavailable TOÑITO VARELA, DR BOTELLO Attending Unavailab alfredito RICHEY MD, ESTEFANY Acevedo Primary Care Unavailabl e Unavailable Primary Care Provider Unavailabl e Medications Current Medications Medication Drug Class(es) Dates Sig (Normalized) Sig (Original) albuterol 0.833 mg/ml / ipratropium bromide 0.167 mg/ml inhalation solution (1 source) Anticholinergic, beta2-Adrenergic Agonist Start: 03-02-2020 albuterol-ipratropi um 2.5 mg-0.5 mg/3 mL inhalation solution 0 Refill(s) Start Date: 03/02/20 Status: Ordered cephalexin 500 mg oral capsule (1 source) Cephalosporin Antibacterial Start: 06-05-2023 End: 06-12-2023 cephalexin 500 mg oral capsule Dose : 500 mg = 1 cap(s), Oral, TID, X 7 day(s), # 21 cap(s), 0 Refill(s), 06/12/23 8:58:00 PM EDT, 157.2 Start Date: 06/05/23 Stop Date: 06/12/23 Status: Ordered famotidine 20 mg oral tablet (1 source) Histamine-2 Receptor Antagonist Start: 07-19-2014 Pepcid 20 mg oral tablet Dose : 20 mg = 1 tab(s), Oral, BID, # 20 tab(s), 0 Refill(s) Start Date: 07/19/14 Status: Ordered loratadine 10 mg oral tablet (1 source) Start: 07-19-2014 loratadine 10 mg oral tablet Dose : 10 mg = 1 tab(s), Oral, qDay Start Date: 07/19/14 Status: Ordered predniSONE 20 mg oral tablet (1 source) Start: 03-02-2020 Deltasone 20mg tab (TAPER) 0 Refill(s) Start Date: 03/02/20 Status: Ordered Zofran ODT 4 mg oral tablet, disintegrating (1 source) Start: 07-19-2014 Zofran ODT 4 mg oral tablet, disintegrating Dose : 4 mg = 1 tab(s), Oral, q6hr, # 10 tab(s), 0 Refill(s) Start Date: 07/19/14 Status: Ordered Completed/Discontinued Medications Medication Drug Class(es) Dates Sig (Normalized) Sig (Original) acyclovir 400 mg oral tablet (1 source) Herpesvirus Nucleoside Analog DNA Polymerase Inhibitor, Herpes Simplex Virus Nucleoside Analog DNA Polymerase Inhibitor, Herpes Zoster Virus Nucleoside Analog DNA Polymerase Inhibitor Start: 05-15-2019 End: 01-22-2022 take 1 tablet by mouth three times daily acyclovir (ZOVIRAX) 400 mg tablet Indications: Screen for STD (sexually transmitted disease) , Genital labial ulcer take 1 tablet by mouth three times a day for 7 days 21 tablet 0 05/15/2019 01/22/2022 Discontinued Problems Active Problems Problem Classification Problem Date Documented Date Episodic/Chronic Asthma (1 source) Asthma 07-19-2014 Chronic Attention-deficit, conduct, and disruptive behavior disorders (1 source) Attention deficit hyperactivity disorder 07-19-2014 Chronic Nonspecific chest pain (1 source) Chest pain; Translations: [Chest pain, unspecified] Episodic Open wounds of extremities (1 source) Laceration of toe; Translations: [Laceration without foreign body of unspecified toe without damage to nail, initial encounter] Onset: 06-05-2023 Episodic Other injuries and conditions due to external causes (1 source) Injury of foot; Translations: [Unspecified injury of unspecified foot, initial encounter] Onset: 06-05-2023 Episodic Other lower respiratory disease (1 source) Dyspnea; Translations: [Shortness of breath] Episodic Past or Other Problems Problem Classification Problem Date Documented Date Episodic/Chronic Joint disorders and dislocations; trauma-related (3 sources) Patellofemoral stress syndrome; Translations: [Patellofemoral disorders, unspecified knee] Onset: 05-18-2017 05-18-2017 Episodic Other non-traumatic joint disorders (5 sources) Patellar instability; Translations: [Knee pain] Onset: 05-18-2017 07-01-2017 Episodic Superficial injury; contusion (3 sources) Contusion of unspecified knee, initial encounter; Translations: [Contusion of unspecified knee, initial encounter] Onset: 05-18-2017 05-18-2017 Episodic Results Test Name Value Interpretation Reference Range Facil ity Vital Signs Date Time Vital Sign Value Performing Clinician Facility 06-05-2023 19:26-0400 Body temperature 98.06 [degF] ROBBIE [employer] [facility] [employer] [facility] 06-05-2023 19:26-0400 Body weight 157.2 kg [facility] [employer] [facility] 06-05-2023 19:26-0400 Diastolic Blood Pressure Non-Invasive 95 1 [facility] [employer] [facility] 06-05-2023 19:26-0400 Heart rate 95 /min [facility] [employer] [facility] 06-05-2023 19:26-0400 Respiratory rate 20 /min [facility] [employer] [facility] 06-05-2023 19:26-0400 Systolic Blood Pressure Non-Invasive 162 1 [facility] [employer] [facility] [employer] [facility] 01-22-2022 12:13-0400 Body temperature 97.59 [degF] Ankit Son MD Work Phone: [facility] 01-22-2022 12:13-0400 Body weight 145.69 kg Ankit Son MD Work Phone: [facility] 01-22-2022 12:13-0400 Diastolic blood pressure 74 mm[Hg] Ankit Son MD Work Phone: [facility] 01-22-2022 12:130400 Heart rate 88 /min Ankit Son MD Work Phone: [facility] 01-22-2022 12:130400 Respiratory rate 20 /min Ankit Son MD Work Phone: [facility] 01-22-2022 12:130400 SaO2% (BldA) [Mass fraction] 98 % Ankit Son MD Work Phone: [facility] 01-22-2022 12:130400 Systolic blood pressure 120 mm[Hg] Ankit Son MD Work Phone: [facility] 05-18-2017 08:07-0400 BMI (Body Mass Index) 43.56 kg/m2 [facility] Work Phone: 05-18-2017 08:07-0400 Height 175.26 cm [facility] Work Phone: 05-18-2017 08:07-0400 Weight 133.81 kg [facility] Work Phone: Encounters Encounter Date Encounter Type Care Provider Facility Start: 07-02-2023 Telephone encounter [facility] Provider [facility] Procedures Date Procedure Procedure Detail Performing Clinician Tonsillectomy and adenoidectomy ROBBIE GUTIÉRREZ DO Plan of Treatment Date Care Activity Detail Author Start: 10-13-2023 Urine microalbumin profile DTaP,Tdap,Td Vaccine (7 - Td or Tdap) [facility] Start: 04-16-2023 Influenza vaccination Influenza Vaccine (#1) [facility] Start: 2022 Pap Testing Pap Testing [facility] Start: 08-16-2022 Depression Assessment Depression Assessment [facility] Start: 04-16-2022 Influenza vaccination INFLUENZA (Season Ended) [facility] Start: 10-10-2019 CHLAMYDIA SCREENING (18-) CHLAMYDIA SCREENING (18-) [facility] Start: 10-10-2019 GC (GONORRHEA) SCREENING (18-24) GC (GONORRHEA) SCREENING (18-24) [facility] Start: 2017 Meningococcal B Vaccine: Consider Based On Risk (1 of 2 - Patient Seeks Protection) Meningococcal B Vaccine: Consider Based On Risk (1 of 2 - Patient Seeks Protection) [facility] Start: 07-15-2017 End: 07-15-2017 Appointment Appointment [facility] Work Phone: Start: 07-01-2017 End: 07-01-2017 Mri any jt lower extrem w/o contrast matrl MRI Joint Lower Extremity [facility] Work Phone: Start: 07-01-2017 End: 07-01-2017 Appointment Appointment [facility] Work Phone: Start: 05-19-2017 End: 05-19-2017 Physical Therapy General Physical Therapy [facility], [address] [place] [address], [id number] [facility] Work Phone: Start: 2015 PEDS TO ADULT TRANSITION ANNUAL ASSESSMENT PEDS TO ADULT TRANSITION ANNUAL ASSESSMENT [facility] Start: 2013 Adult depression screening assessment DEPRESSION SCREENING [facility] Start: 2013 PEDS TO ADULT TRANSITION INITIAL DISCUSSION PEDS TO ADULT TRANSITION INITIAL DISCUSSION [facility] Start: 2012 HPV VACCINE (1 - 2-dose series) HPV VACCINE (1 - 2-dose series) [facility] Start: 2012 Urine microalbumin profile DTAP,TDAP,TD (5 - Tdap) [facility] Start: 2011 MENINGOCOCCAL B: Consider based on risk (1 of 2 - Risk Bexsero 2-dose series) MENINGOCOCCAL B: Consider based on risk (1 of 2 - Risk Bexsero 2-dose series) [facility] Start: 2007 PNEUMOCOCCAL (1 - PCV) PNEUMOCOCCAL (1 - PCV) [facility] Start: 2007 Pneumococcal vaccination Pneumococcal Vaccine (1 - PCV) [facility] Start: 2006 COVID-19 VACCINE (#1) COVID-19 VACCINE (#1) [facility] Start: 04-08-2002 Covid-19 Vaccine (#1) Covid-19 Vaccine (#1) [facility] Immunizations Immunization Date Immunization Notes Care Provider Rosetta ramachandran 06-05-2023 tetanus toxoid, reduced diphtheria toxoid, and acellular pertussis vaccine, adsorbed ROBBIE GUTIÉRREZ DO [facility] 07-18-2019 influenza virus vaccine, unspecified formulation [facility] Provider [facility] 10-28-2006 diphtheria, tetanus toxoids and acellular pertussis vaccine Ankit Son MD Work Phone: [facility] Work Phone: 10-28-2006 measles, mumps, rubella, and varicella virus vaccine Ankit Son MD Work Phone: [facility] Work Phone: 11-10-2004 poliovirus vaccine, inactivated Ankit Son MD Work Phone: [facility] Work Phone: 11-07-2002 diphtheria, tetanus toxoids and pertussis vaccine Ankit Son MD Work Phone: [facility] Work Phone: 11-07-2002 measles, mumps and rubella virus vaccine Ankit Son MD Work Phone: [facility] Work Phone: 11-07-2002 varicella virus vaccine Ankit Son MD Work Phone: [facility] Work Phone: 07-27-2002 diphtheria, tetanus toxoids and pertussis vaccine Ankit Son MD Work Phone: [facility] Work Phone: 07-27-2002 haemophilus influenz ae type b vaccine, HbOC conjugate Ankit Son MD Work Phone: [facility] Work Phone: 07-27-2002 hepatitis B vaccine, pediatric or pediatric/adolescent dosage Ankit Son MD Work Phone: [facility] Work Phone: 07-27-2002 pneumococcal conjuga te vaccine, 7 valent Ankit Son MD Work Phone: [facility] Work Phone: 02-13-2002 diphtheria, tetanus toxoids and pertussis vaccine Ankit Son MD Work Phone: [facility] Work Phone: 02-13-2002 haemophilus influenz ae type b vaccine, HbOC conjugate Ankit Son MD Work Phone: [facility] Work Phone: 02-13-2002 poliovirus vaccine, inactivated Ankit Son MD Work Phone: [facility] Work Phone: 2001 diphtheria, tetanus toxoids and pertussis vaccine Ankit Son MD Work Phone: [facility] Work Phone: 2001 haemophilus influenz ae type b vaccine, HbOC conjugate Ankit Son MD Work Phone: [facility] Work Phone: 2001 hepatitis B vaccine, pediatric or pediatric/adolescent dosage Ankit Son MD Work Phone: [facility] Work Phone: 2001 pneumococcal conjuga te vaccine, 7 valent Ankit Son MD Work Phone: [facility] Work Phone: 2001 poliovirus vaccine, inactivated Ankit Son MD Work Phone: [facility] Work Phone: 2001 hepatitis B vaccine, pediatric or pediatric/adolescent dosage Ankit Son MD Work Phone: [facility] Work Phone: Payers Date Payer Category Payer [facility] [id number] 2022 Medicaid [employer] [id number] 2022-Present [phone] [address] [place] [id number] Medicaid [id number] 2018 Medicaid [employer] [facility] [id number] 2018-Present [phone] [address] [place] [address] Medicaid [id number] 2001 Unknown [id number] 2001 Unknown [id number] Social History Date Type Detail Facility Start: 10-10-2018 End: 03-26-2022 Tobacco smoking status WAIS Smokes tobacco daily [facility] History of tobacco use Cigarette Smoker C [facility] Start: 10-10-2018 End: 03-26-2022 Tobacco use and exposure Smokeless tobacco non-user [facility] Start: 01-22-2022 End: 03-26-2022 Alcohol intake Current non-drinker of alcohol (finding) [facility] Start: 10-10-2018 End: 03-26-2022 Tobacco Comment 3 cigarettes a day [facility] Start: 2001 Sex Assigned At Not on file C [facility] Start: 01-12-2022 End: 01-22-2022 Exposure to SARS-CoV-2 (event) Not sure [facility] Start: 03-19-2021 Tobacco smoking status Light t obacco smoker (finding) [facility] Sex Assigned At Sex [facility] Start: 07-21-2020 End: 03-26-2022 History of Social function [facility] Start: 07-21-2020 End: 03-26-2022 Tobacco use panel [facility] National Score (1-10 0), lower number is lower risk Not on file [facility] Functional Status Date Assessment Result Facility 06-05-2023 Functional Status Independent [facility] 06-05-2023 Functional Status ID band on, Call device within reach, Bed in low position, Wheels locked, Upper/Half-Length side-rails up, Phone within reach, Safety level maintained [facility] Mental Status Date Assessment Result Facility 06-05-2023 Mental Status Orientation Oriented x 4 [facility] 06-05-2023 Mental Status [facility] Note 07-02-2023 Telephone Encounter - [place] Day - 07/02/2023 10:27 AM EST Note Date & Type Note Facility 07-02-2023 Miscellaneous Notes Formattin g of this note might be different from the original. Fax PCP ref call into the program, unable to leave voice mail do to not setup. Pt has not mychart setup. documented in this encounter [facility] Discharge instructions 06-05-2023 Note Date & Type Note Facility 06-05-2023 Hospital Discharg e instructions Patient Education 06/05/2023 20:58:34 AA Radha COLE (CUSTOM) Result type:XR Toes 2nd Digit 3 Views Left Result date:June 05, 2023 20:20 EDT Result status:Auth (Verified) Result title:XR TOES 2ND DIGIT 3 VIEWS LEFT Performed by:EDWIN FELDER MD on June 05, 2023 20:04 EDT Cosigned by:EDWIN FELDER MD Verified by:EDWIN FELDER MD on June 05, 2023 20:20 EDT Encounter info:[id number], [facility], Emergency, 06/05/2023 - Contributor system:[employer] * Final Report * [id number] ORIGINAL EXAMINATION: THREE XRAY VIEWS OF THE LEFT TOE(S) 06/05/2023 8:20 pm COMPARISON: None. HISTORY: ORDERING SYSTEM PROVIDED HISTORY: Reason for Exam: toe pain FINDINGS: No fracture or dislocation. A few tiny radiopaque densities project over the superficial soft tissues of the 2nd digit plantar aspect at the level of the proximal interphalangeal joint; correlate with physical exam. IMPRESSION: No acute osseous abnormality. Interpreted by: Edwin Felder Preliminary Report By: Edwin Felder Electronically signed By Edwin Felder Dictated Date: 06/05/2023 8:31:10 PM Prelim Date: 06/05/2023 8:32:25 PM Sign Date: 06/05/2023 8:32:25 PM Ordering Provider: ROBBIE GUTIÉRREZ IMAGE This document has an image Document Released: 08/02/2006 Document Revised: 07/19/2013 Document Reviewed: 08/03/2014 ExitCare Patient Information 2015 [place] [facility]. This information is not intended to replace advice given to you by your health care provider. Make sure you discuss any questions you have with your health care provider. 06/05/2023 19:54:14 Laceration, Old: Not Sutured Old Laceration: Not Sutured A laceration is a cut through the skin. This will usually require stitches if it is deep. However, if a laceration remains open for too long, the risk of infection increases. In your case, too much time has passed before coming for treatment. The danger of infection from stitching at this time is too high. That is why your wound was not stitched. If the wound is spread open, it will heal by filling in from the bottom and sides. A wound that is not stitched may take 1 to 4 weeks to heal, depending on the size of the opening. You will probably have a visible scar. You can discuss revision of the scar with your healthcare provider at a later time. Home care The following guidelines will help you care for your laceration at home: Keep the wound clean and dry. If a bandage was applied and it becomes wet or dirty, replace it. Otherwise, leave it in place for the first 24 hours, then change it once a day or as directed. The healthcare provider may prescribe an antibiotic cream or ointment to prevent infection. If you are at high risk for infection, or the wound is very dirty, your provider may prescribe an oral antibiotic medicine to prevent infection. Don't stop using this medicine until you have finished it all, or the provider tells you to stop. The healthcare provider may also prescribe medicine for pain. Follow instructions for taking these medicines. Clean the wound daily: After removing any bandage, wash the area with soap and water. Use a wet cotton swab to loosen and remove any blood or crust that forms. Talk with your healthcare provider before applying any antibiotic ointment to the wound. Reapply a fresh bandage. You may remove the bandage to shower as usual after the first 24 hours, but don't soak the area in water. This means no tub baths or swimming until the wound heals or your provider tells you it's OK. Don't do activities that may reinjure your wound. Check the wound daily for signs of infection listed below. Follow-up care Follow up with your healthcare provider, or as advised. When to seek medical advice Call your healthcare provider right away if any of these occur: Wound bleeding not controlled by direct pressure Signs of infection, including increasing pain in the wound, increasing wound redness or swelling, or pus or bad odor coming from the wound Fever of 100.4 F (38. C) or higher, or as directed by your healthcare provider Wound edges reopen Wound changes colors Numbness around the wound Decreased movement around the injured area [id number] [employer]. [address] [place] [address]. All rights reserved. This information is not intended as a substitute for professional medical care. Always follow your healthcare professional's instructions. Follow Up Care 06/05/2023 19:26:12 With:Go to emergency room if symptoms worsen Address:Unknown When:2-4 days With:MAYRA WRAY MD Address: [place] [address]- When:2-4 days [facility] Emergency department Discharge summary 06-05-2023 Note Date & Type Note Facility 06-05-2023 Emergency departm ent Discharge summary Discharge Instructions Thank you for allowing [facility] to assist you with your healthcare needs. The following is important discharge information regarding your hospital visit. Diagnosis from Today's Visit Injury of toe Laceration of toe Toe pain-laceration What to Do Next Instructions from Your Care Team Take Keflex as prescribed. Take tylenol and/gonzalez Motrin as needed for pain. Keep wound clean and dry. Return emergency department immediately if develop increased redness around wound, fevers, drainage, or any other care concern. No qualifying data available. Post Acute Orders No qualifying data available. You Need to Schedule the Following Appointments Follow Up with Go to emergency room if symptoms worsen When Within 2-4 days Follow Up with MAYRA WRAY MD When Within 2-4 days Where: [facility] [address] [place] [address]- Allergies NKA Immunizations This Visit Given Vaccine Datetetanus/diphth/pertuss (Tdap) adult/adol 06/05/2023 Medications Please ask your primary doctor or pharmacist before taking any other medication not listed, including over the counter drugs, herbal medications, vitamins and or supplements as they may interact with your home medications. What How Much When Instructions Last Dose New cephalexin (cephalexin 500 mg oral capsule) 1 cap by mouth Three (3) times a day Duration: 7 Days Printed Prescription Unchanged albuterol-ipratropium (albuterol-ipratropium 2.5 mg-0.5 mg/ 3 mL inhalation solution) Unchanged famotidine (Pepcid 20 mg oral tablet) 1 tab(s) by mouth Two (2) times a day Unchanged loratadine (loratadine 10 mg oral tablet) 1 tab(s) by mouth Once a day Unchanged methylphenidate (Concerta) 72 Milligram by mouth Once a day (in the morning) Unchanged methylphenidate (Ritalin 10 mg oral tablet) 1 tab(s) by mouth Two (2) times a day Unchanged ondansetron (Zofran ODT 4 mg oral tablet, disintegrating) 1 tab(s) by mouth Every 6 hours Unchanged predniSONE (Deltasone 20mg tab (TAPER)) Please take this list to your next doctor s visit. Bring all medications you take, including over the counter medications, herbals and other supplements with you to your doctor s visit. Patients and families are reminded to discard old lists and to update any records with all medication providers or retail pharmacies. Education Materials Result type: XR Toes 2nd Digit 3 Views Left Result date: June 05, 2023 20:20 EDT Result status: Auth (Verified) Result title: XR TOES 2ND DIGIT 3 VIEWS LEFT Performed by: EDWIN FELDER MD on June 05, 2023 20:04 EDT Cosigned by: EDWIN FELDER MD Verified by: EDWIN FELDER MD on June 05, 2023 20:20 EDT Encounter info: [id number], Alan, Lisandra, 06/05/2023 - Contributor system: [employer] * Final Report * [id number] ORIGINAL EXAMINATION: THREE XRAY VIEWS OF THE LEFT TOE(S) 06/05/2023 8:20 pm COMPARISON: None. HISTORY: ORDERING SYSTEM PROVIDED HISTORY: Reason for Exam: toe pain FINDINGS: No fracture or dislocation. A few tiny radiopaque densities project over the superficial soft tissues of the 2nd digit plantar aspect at the level of the proximal interphalangeal joint; correlate with physical exam. IMPRESSION: No acute osseous abnormality. Interpreted by: Edwin Felder Preliminary Report By: Edwin Felder Electronically signed By Edwin Felder Dictated Date: 06/05/2023 8:31:10 PM Prelim Date: 06/05/2023 8:32:25 PM Sign Date: 06/05/2023 8:32:25 PM Ordering Provider: ROBBIE GUTIÉRREZ IMAGE This document has an image Document Released: 08/02/2006 Document Revised: 07/19/2013 Document Reviewed: 08/03/2014 ExitCare Patient Information 2015 [place]. This information is not intended to replace advice given to you by your health care provider. Make sure you discuss any questions you have with your health care provider. Old Laceration: Not Sutured A laceration is a cut through the skin. This will usually require stitches if it is deep. However, if a laceration remains open for too long, the risk of infection increases. In your case, too much time has passed before coming for treatment. The danger of infection from stitching at this time is too high. That is why your wound was not stitched. If the wound is spread open, it will heal by filling in from the bottom and sides. A wound that is not stitched may take 1 to 4 weeks to heal, depending on the size of the opening. You will probably have a visible scar. You can discuss revision of the scar with your healthcare provider at a later time. Home care The following guidelines will help you care for your laceration at home: Keep the wound clean and dry. If a bandage was applied and it becomes wet or dirty, replace it. Otherwise, leave it in place for the first 24 hours, then change it once a day or as directed. The healthcare provider may prescribe an antibiotic cream or ointment to prevent infection. If you are at high risk for infection, or the wound is very dirty, your provider may prescribe an oral antibiotic medicine to prevent infection. Don't stop using this medicine until you have finished it all, or the provider tells you to stop. The healthcare provider may also prescribe medicine for pain. Follow instructions for taking these medicines. Clean the wound daily: After removing any bandage, wash the area with soap and water. Use a wet cotton swab to loosen and remove any blood or crust that forms. Talk with your healthcare provider before applying any antibiotic ointment to the wound. Reapply a fresh bandage. You may remove the bandage to shower as usual after the first 24 hours, but don't soak the area in water. This means no tub baths or swimming until the wound heals or your provider tells you it's OK. Don't do activities that may reinjure your wound. Check the wound daily for signs of infection listed below. Follow-up care Follow up with your healthcare provider, or as advised. When to seek medical advice Call your healthcare provider right away if any of these occur: Wound bleeding not controlled by direct pressure Signs of infection, including increasing pain in the wound, increasing wound redness or swelling, or pus or bad odor coming from the wound Fever of 100.4 F (38. C) or higher, or as directed by your healthcare provider Wound edges reopen Wound changes colors Numbness around the wound Decreased movement around the injured area [id number] [employer]. [address] [place] [address]. All rights reserved. This information is not intended as a substitute for professional medical care. Always follow your healthcare professional's instructions. Additional Information VACCINATE! IT SAVES LIVES! Members of the community who have not yet received the COVID-19 vaccine and would like to receive it can visit one of [facility] vaccine clinics. There are many vaccine clinic locations within the [facility]. For locations and available times, please visit www.gettheshot.coronavirus.[place].gov/. It is important to note that some COVID mobile vaccine clinics are held outdoors and may be canceled in rainy or stormy conditions. To learn more about pediatric vaccinations (ages 5-11), we invite you to visit the [facility] webpage. https://www.[facility].org/pages/ 0217-Gwkpv-Gdhbbjgkmaq-Frequently-Ask ed-Questions.html To learn more about the COVID-19 vaccine, we invite you to visit the CDC website for a list of frequently asked questions. https://www.cdc.gov/coronavirus/2019- ncov/vaccines/faq.html [place] [employer] Patient Portal Access Instructions: Stay connected with your healthcare team and access your personal medical information anytime with the [employer] Patient Portal. If you would like a full copy of your medical records please contact the [facility] Medical Records Department Wednesday through Wednesday between 8a.m. and 4:30p.m. Please follow the directions below to access the portal: 1.Access the email account you provided upon registration to the [facility].2.Look for an invitation email from [facility].3.Open the email and access the invitation link: Accept Invitation to [employer]4.Fill in the required seth to create your account. Sign into [email or web address].[email or web address] with your username and password that you created in the above steps to stay up to date. You can then view a summary of results, a summary of your visits, and the ability to download your summaries to your computer or send the information securely to a physician. Remember that your healthcare information is confidential, so carefully consider who you will allow to register on the [employer] Patient Portal for access to your information. You can also access the [employer] Patient Portal on the 1calendar kai. Simply click on Health Records under Health Data and then click on the [employer] logo. HOW TO SAFELY DISPOSE OF PRESCRIPTION MEDICATIONS Please use one of the following methods to safely dispose of your unused medications. 1.Use a drug disposal kit: the drug disposal pouch allows you to safely discard your old and unused drugs. Ask your nurse to give you one when you are discharged.2.Visit a local take-back location: Many local pharmacies and police departments have programs that collect old and unwanted prescription drugs. Call your local pharmacy or go to http://bit.StylePuzzle/4Q0Gu2u to find one close to you.3.Make use of household items: Use cat litter or old coffee grounds to dispose medications if other options are not available. Mix your drugs with these household products, seal them in an airtight container and throw it into the garbage. Call [facility]: [phone] to be sure your drugs can be disposed of in this way. Some medicines may require a different approach.4.Never flush your medications down the toilet. IF YOU HAVE BEEN PRESCRIBED AN OPIOIDS FOR PAIN If you have been prescribed an opioid (such as hydrocodone, oxycodone or morphine), it is critical to understand the possible side effects and risks of opioid pain medications. Even when taken as directed, opioids can have several side effects including: Tolerance, meaning you might need to take more of a medication for the same pain relief. Nausea, vomiting and/or constipation. Sleepiness, dizziness, dry mouth, confusion, depression or itching. Physical dependence, meaning you have withdrawal symptoms when a medication is stopped ? this can develop within a few days. KNOW YOUR RESPONSIBILITIES It is important to know exactly how much and how often to take the opioid pain medications you are prescribed. Never take opioids in higher amounts or more often than prescribed. Do not combine opioids with alcohol or other drugs that cause drowsiness, such as benzodiazepines, also known as benzos, including diazepam and alprazolam, muscle relaxants or sleep aids. Never sell or share prescription opioids. This is illegal. Store opioids in a secure place and out of reach of others (including children, family, friends and visitors). The last page(s) of this document has been signed and retained as a CHART COPY Signatures Patient Education Materials BRITTNI COLE (CUSTOM) Laceration, Old: Not Sutured Medication Leaflets My discharge plan and instructions have been reviewed and explained to me and ISCOTT JACQUELENE R understand my current condition and have read and understand these discharge instructions. I have received a written copy of the plan/instructions. If I have questions, I am aware that I should contact my doctor. 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 HISTORY: ORDERING SYSTEM PROVIDED HISTORY: Reason for Exam: toe pain FINDINGS: No fracture or dislocation. A few tiny radiopaque densities project over the superficial soft tissues of the 2nd digit plantar aspect at the level of the proximal interphalangeal joint; correlate with physical exam. IMPRESSION: No acute osseous abnormality. Interpreted by: Edwin Felder Preliminary Report By: Edwin Felder Electronically signed By Edwin Felder Dictated Date: 06/05/2023 8:31:10 PM Prelim Date: 06/05/2023 8:32:25 PM Sign Date: 06/05/2023 8:32:25 PM Ordering Provider: [facility] Progress note 03-26-2022 Note Date & Type Note Facility 03-26-2022 Note HNO ID: [id number] Author: Isela Perez APRN.[employer] Service: ? Author Type: Nurse Practitioner Type: Progress Notes Filed: 03/26/2022 6:45 PM Note Text: Subjective The history is provided by the patient. No language instructor was used. HPI Rosalind Chavez is a 21 year old female who presents today for CC of needing letter for being off work. Patient had a 2 rapid positives, does not need PCR per patient. She is having a headache, sinus congestion and drainage and cough. Denies fever. She has used tylenol, currently . BP 118/66 Pulse 97 Temp 36.9 ?C (98.4 ?F) Resp 18 Wt (!) 148.1 kg (326 lb 6.4 oz) LMP 08/16/2019 (Approximate) SpO2 98% Yes Social History Tobacco Use - Smoking status: Every Day Types: Cigarettes - Smokeless tobacco: Never - Tobacco comments: 3 cigarettes a day Substance Use Topics - Alcohol use: No - Drug use: No PAST MEDICAL HISTORY Diagnosis Date - [facility] - PAST MEDICAL HISTORY OF heart murmur I have confirmed and edited as necessary, the [facility] Review of Systems Constitutional: Positive for malaise/fatigue. Negative for chills and fever. HENT: Positive for congestion and sinus pain. Negative for ear pain and sore throat. Respiratory: Positive for cough. Negative for sputum production, shortness of breath and wheezing. Cardiovascular: Negative for chest pain. Gastrointestinal: Negative for abdominal pain, diarrhea, nausea and vomiting. Musculoskeletal: Positive for myalgias. Neurological: Positive for headaches. Objective Physical Exam Vitals and nursing note reviewed. HENT: Head: Normocephalic and atraumatic. Right Ear: Tympanic membrane, ear canal and external ear normal. Left Ear: Tympanic membrane, ear canal and external ear normal. Nose: Mucosal edema, congestion and rhinorrhea present. Right Sinus: Maxillary sinus tenderness and frontal sinus tenderness present. Left Sinus: Maxillary sinus tenderness and frontal sinus tenderness present. Mouth/Throat: Pharynx: Uvula midline. No oropharyngeal exudate or posterior oropharyngeal erythema. Cardiovascular: Rate and Rhythm: Normal rate and regular rhythm. Heart sounds: Normal heart sounds. Pulmonary: Effort: Pulmonary effort is normal. Breath sounds: Normal breath sounds. Lymphadenopathy: Head: Right side of head: No submental, submandibular or tonsillar adenopathy. Left side of head: No submental, submandibular or tonsillar adenopathy. Cervical: No cervical adenopathy. Skin: General: Skin is warm and dry. Neurological: Mental Status: She is alert. Psychiatric: Mood and Affect: Affect normal. ASSESSMENT/PLAN: 1. COVID - ICD9: 079.89, ICD10: U07.1 Home isolation Comfort measures discussed - see patient instructions. When to seek higher level of care Diagnosis and treatment plan were discussed and questions were answered to the patient's satisfaction. Pt acknowledged understanding of concepts and follow up plan. Specific signs and symptoms that would indicate the need for higher level of care were discussed in detail warranting prompt ER evaluation. Isela Perez APRN.[facility] Progress note 01-22-2022 Note Date & Type Note Facility 01-22-2022 Note HNO ID: [id number] Author: Ankit Son MD Service: ? Author Type: Physician Type: Progress Notes Filed: 01/22/2022 12:37 PM Note Text: Patient presents with: Pain: Pt reported vaginal delivery 12/23/2021, SOB onset w/ delivery [facility] ER Visit x2wks prior, denied illness Pain: pain under sternum rated 9 with deep breathing HPI: Chest pain: Mid lower chest, worse with breathing. Positive symptoms: Shortness of breath, Chest pain, Negative symptoms: Cough, Fever, Had evaluation in the ER [address] chest. MEDICATIONS: Not taking medications. No current outpatient medications on file. No current facility-administered medications for this visit. ALLERGIES: ALLERGIES No Known Allergies VITALS: BP 120/74 Pulse 88 Temp 36.4 ?C (97.6 ?F) Resp 20 Wt (!) 145.7 kg (321 lb 3.2 oz) LMP 08/16/2019 (Approximate) SpO2 98% PHYSICAL EXAM: GEN: alert, no acute distress, holds mid chest below her breasts as location of pain. HEENT: PERRL, EOMI, conjunctiva clear Neck: supple, LUNGS: no increased WOB ASSESSMENT/PLAN: 1. Chest pain, unspecified type - ICD9: 786.50, ICD10: R07.9 (primary diagnosis) 2. SOB (shortness of breath) - ICD9: 786.05, ICD10: R06.02 I recommended ER evaluation today and ER follow up with her PCP. Patient left the room after this recommendation. Ankit Son MD [facility] History of Present illness Narrative 01-22-2022 Ankit Son MD - 01/22/2022 12:17 PM EDT Note Date & Type Note Facility 01-22-2022 History of Presen t illness Narrative Patient presents with: Pain: Pt reported vaginal delivery 12/23/2021, SOB onset w/ delivery [facility] ER Visit x2wks prior, denied illness Pain: pain under sternum rated 9 with deep breathing HPI: Chest pain: Mid lower chest, worse with breathing. Positive symptoms: Shortness of breath, Chest pain, Negative symptoms: Cough, Fever, Had evaluation in the ER [address] chest. MEDICATIONS: Not taking medications. No current outpatient medications on file. No current facility-administered medications for this visit. ALLERGIES: ALLERGIES No Known Allergies VITALS: BP 120/74 Pulse 88 Temp 36.4 C (97.6 F) Resp 20 Wt (!) 145.7 kg (321 lb 3.2 oz) LMP 08/16/2019 (Approximate) SpO2 98% PHYSICAL EXAM: GEN: alert, no acute distress, holds mid chest below her breasts as location of pain. HEENT: PERRL, EOMI, conjunctiva clear Neck: supple, LUNGS: no increased WOB ASSESSMENT/PLAN: 1. Chest pain, unspecified type - ICD9: 786.50, ICD10: R07.9 (primary diagnosis) 2. SOB (shortness of breath) - ICD9: 786.05, ICD10: R06.02 I recommended ER evaluation today and ER follow up with her PCP. Patient left the room after this recommendation. Ankit Son MD documented in this encounter [facility] Evaluation + Plan note Note Date & Type Note Facility Evaluation + Plan note No data available for this section [facility] Evaluation note Note Date & Type Note Facility documented in this encounter [facility] Summary Purpose Family History No Family History Records FoundNo Family History Records FoundNo Family History Records Found No data available for this section No Family History Records FoundNo Family History Records Found Advance Directives No Advanced Directives Records FoundNo Advanced Directives Records FoundNo Advanced Directives Records FoundNo Advanced Directives Records FoundNo Advanced Directives Records Found Additional Source Comments INFORMATION SOURCE (unrecogn ized section and content) DATE CREATED AUTHOR AUTHOR'S ORGANIZ ATION 08/19/2021 [facility] DATE CREATED AUTHOR AUTHOR'S ORGANIZ ATION 03/27/2022 [facility] DATE CREATED AUTHOR AUTHOR'S ORGANIZ ATION 06/24/2023 [facility] DATE CREATED AUTHOR AUTHOR'S ORGANIZ ATION 07/04/2023 [facility] Source Comments (unrecognize d section and content) In the event this informatio n is protected by the Federal Confidentiality of Alcohol and Drug Abuse Patient Records regulations: The Federal rules restrict any use of the information to criminally investigate or prosecute any alcohol or drug abuse patient.[facility] the event this information is protected by the Federal Confidentiality of Alcohol and Drug Abuse Patient Records regulations: The Federal rules restrict any use of the information to criminally investigate or prosecute any alcohol or drug abuse patient.[facility] Reason for Visit (unrecogniz ed section and content) Reason Comments External Referrals/resources Patient Care team informatio n (unrecognized section and content) Care Team Personnel Name: MAYRA WRAY MD Member Role: Primary Care Physician Address: Address: [facility] [address] [place] [id number] Name: ROBBIE GUTIÉRREZ DO Position: ED Physician Member Role: Attending Physician Address: Address: [address] [place] [id number] Care Team Related Persons Name: MOI CHAVEZ Address: Home [address] [address] Name: SOHA WANG Address: Home [address] [place] [address] FOR RECORDS PERTAINING TO PATIENTS WHO ARE OR HAVE BEEN ENROLLED IN A CHEMICAL DEPENDENCY/SUBSTANCEABUSE PROGRAM, SOME INFORMATION MAY BE OMITTED. This clinical summary was aggregated from multiple sources. Caution should be exercised in using it in the provision of clinical care. This summary normalizes information from multiple sources, and as a consequence, information in this document may materially change the coding, format and clinical context of patient data. In addition, data may be omitted in some cases. CLINICAL DECISIONS SHOULD BE BASED ON THE PRIMARY CLINICAL RECORDS. [facility]. provides no warranty or guarantee of the accuracy or completeness of information in this document.
== END | disposition home or self-care (01) ==
LOC: SL 20:04
PROVIDERS: PCP Internal Medicine; Referring Provider Internal Medicine; Visit Provider Internal Medicine
DX: R29.818 Other symptoms and signs involving the nervous system (principal); G47.10 Hypersomnia, unspecified
CPT/HCPCS: 95810

== ENCOUNTER → 2023-09-20 | Outpatient (CLI) | payer MEDICAID, SELFPAY ==
[2023-09-23 13:07] LABS: HPV APTIMA, High Risk Negative (Negative)
[2023-09-23 21:07] LABS: Chlamydia By Nucleic Acid AMP Positive (Negative); Gonococcus By Nucleic Acid AMP Negative (Negative)
== END | disposition home or self-care (01) ==
PROVIDERS: PCP Internal Medicine; Visit Provider Obstetrics & Gynecology
DX: Z12.4 Encounter for screening for malignant neoplasm of cervix (principal); Z11.3 Encounter for screening for infections with a predominantly sexual mode of transmission
CPT/HCPCS: 87491; 87591; 87624; 88175; G0145

== ENCOUNTER 2023-10-30 14:46 | Emergency (ER) | payer MEDICAID, SELFPAY ==
[2023-10-30 14:47] VITALS: BP 140/94; PULSE 109; RESP 14; TEMP 36.7; O2SAT 99
--- NOTE | 2023-10-30 14:49 | ED.RN ---
DOUBLE CHECKED WITH PT ON WT, SHE STATED A SECOND TIME 220LB.
--- NOTE | 2023-10-30 14:56 | RAD_ITS ---
STUDY: X-RAY - LEFT ANKLE REASON FOR EXAM: Female, 23 years old. Injury/Pain TECHNIQUE: 3 view(s) of the ankle. COMPARISON: None. FINDINGS: Normal visualized distal tibia and fibula. Normal medial and lateral malleoli. Normal tibiotalar articulation and ankle mortise. Normal visualized talus and calcaneus. The visualized subtalar, talonavicular, calcaneocuboid and tarsal articulations are normal. There is no demonstrated fracture. The soft tissue structures are unremarkable. RAD/Ankle min 3 Views IMPRESSION: Normal x-ray examination of the ankle. Electronically Signed: Chris Kc MD at 15:39 EDT ,
--- NOTE | 2023-10-30 14:57 | EDS_ITS ---
HPI History of Present Illness Chief Complaint: Lower Extremity Injury Detail of Chief Complaint: Injury left ankle last evening. Informant: patient Occured/Mechanism Mechanism/Context: Yes injury Comment: Plantar inversion mechanism of injury Onset/Context/Timing Context: Sudden Onset Timing: Continuous Quality of Pain: Dull, Aching and Throbbing Location: Left ankle Current Severity: Mild Maximum Severity: Severe Worsened by: Movement and attempt to weight-bear Relieved by: Nothing Associated Symptoms Associated Symptoms: Positive for Loss of Funtion; Negative for Parasthesia or Weakness Narrative Narrative: Patient is a 23-year-old female who presents with injury to her left ankle. This occurred last evening. She had a plan inversion mechanism injury. She is unable to bear weight. She is brought in by friend. She has no allergies to pain medicine. She denies paresthesia, anesthesia or motor weakness. She denies knee pain or hip pain. Tetanus Immunization: 5-10 years Prior similar symptoms: No Recent Illness/Hospitalization: No PFSH PFSH Medical History Abnormal glucose affecting ADHD Anemia Anxiety Asthma Chest pain COVID-19 Depression Fatigue Genital herpes affecting History of asthma Hx of blood diseases Left lower quadrant pain Marijuana abuse Wears glasses Home Medications bupropion HCl 300 mg 24 hr tablet, extended release 300 mg PO QAM #30 tabs 08/17/23 [Rx Last Taken Unknown] norgestimate 0.25 mg-ethinyl estradiol 35 mcg tablet (Sprintec (28)) 1 tab PO DAILY #84 tabs 09/20/23 [Rx Last Taken Unknown] lidocaine 5 % topical ointment 1 applic topical TID PRN pain 7 days #30 grams 10/20/23 [Rx Last Taken Unknown] valacyclovir 500 mg tablet 500 mg PO BID 5 days #10 tabs 10/20/23 [Rx Last Taken Unknown] naproxen 500 mg tablet 500 mg PO BID #14 tabs 10/30/23 [Rx Last Taken Unknown] Allergy/AdvReac Type Severity Reaction Status Date / Time No Known Allergies Allergy Verified 10/30/23 14:47 Family History Mother Lupus Sjogrens syndrome Father Sleep apnea Grandfather Brain cancer Seizures Grandmother COPD (chronic obstructive pulmonary disease) Leukemia Surgical History S/P cholecystectomy S/P left knee arthroscopy S/P tonsillectomy Status post vaginal delivery Status post vaginal delivery Social History household members: children current occupational status: unemployed pets and animals: Yes pets and animals: dog(s) Smoking Status: Current every day smoker tobacco type: cigarettes and e- cigarettes Electronic Cigarette Use: with nicotine second hand exposure: Yes quit status: considering quitting alcohol intake: current alcohol intake frequency: holidays/special occasions only substance use type: former substance user and marijuana seatbelt use: always do you feel safe at home: Yes additional social history: BF- [employer] ROS ROS ED Constitutional Constitutional ED: Denies chills or fever(s) Cardiovascular Cardiovascular: Denies chest pain or palpitations Respiratory/Chest Respiratory/Chest: Denies cough, dyspnea or dyspnea on exertion Gastrointestinal Gastrointestinal: Denies nausea or vomiting Musculoskeletal Musculoskeletal: Reports other Details: Per HPI ; Denies arthralgias or myalgias Integumentary Denies Abrasions or rash Neurologic Neurologic: Denies paresthesias or weakness Hematologic/Lymphatic Hematologic/Lymphatic: Denies easy bleeding or easy bruising EXAM Physical Exam Const Vital Signs: 10/30/23 14:47 Temperature 98.1 F Temperature Source Temporal Pulse Rate 109 H Respiratory Rate 14 Blood Pressure 140/94 H Blood Pressure Mean 109 Pulse Ox 99 Oxygen Delivery Method Room Air Positive well nourished, well developed and obese Constitutional Narrative: Patient is tearful. General Appearance ED: well developed; Negative for NAD Nutritional Appearance: obese HEENT Reports moist mucous membranes normocephalic and atraumatic Eyes PERRL Eyes Narrative: Extract muscles are intact. Sclera is anicteric. Resp normal respiratory effort, no retractions and clear to auscultation bilaterally Cardio regular rate, regular rhythm, S1 normal heart sound, S2 normal heart sound and no murmurs Extremity Negative for normal to inspection or full ROM Extremity Narrative: There is swelling of the left ankle compared to the right. Patient has significant pain over the lateral malleolus as well as pain over the medial malleolus. There is no pain ovation at the base of the fifth metatarsal. Patient complained of pain with drawer testing however there is no laxity. DP and PT pulse are palpable. There is no obvious injury to the toes. General Extremety ED: Yes weight-bearing difficulty General Extremity: weight-bearing difficulty Neuro oriented x3, CN's II-XII intact bilaterally, moves all extremities and no sensory deficits noted Sensorium / Orientation: alert Psych Psych Narrative: Tearful otherwise unremarkable Skin no wounds Lesions: no lesions Rashes: no rashes Trauma: Negative for abrasion MDM MDM MDM Narrative Medical decision making narrative: Per the [place] ankle rule imaging is indicated. Three-view x-ray of the left ankle was obtained. She was medicated with hydrocodone and acetaminophen. Con firmed that she has no allergies to medication. History & Record Review Additional record(s) reviewed:: Prior outpatient record (History of PTSD as well as anxiety depression probable contributed to her being tearful.) Radiography Chest X-Ray - ED: Read by ED Physician (Three-view x-ray of the left ankle reveals no fracture, subluxation or dislocation. There is no widening of the mortise. There is soft tissue swelling.) Treatment and Re-Evaluation Narrative: Patient was treated with NSAIDs and she has no contraindication and Aircast. Discharge Plan Triage Chief Complaint: Lower Extremity Injury ED Provider: Denys Boyle Dx/Rx/DC Orders Clinical Impression: PTSD (post-traumatic stress disorder), Sprain of calcaneofibular ligament of left ankle, Anxiety and depression Instructions: ED Ankle Sprain (Adult) Prescriptions: New naproxen 500 mg tablet 500 mg PO BID Qty: 14 0RF No Action bupropion HCl 300 mg tablet extended release 24 hr 300 mg PO QAM Qty: 30 2RF norgestimate-ethinyl estradiol [Sprintec (28)] 0.25-35 mg-mcg tablet 1 tab PO DAILY Qty: 84 4RF lidocaine 5 % ointment 1 applic topical TID PRN (Reason: pain) 7 Days Qty: 30 3RF valacyclovir 500 mg tablet 500 mg PO BID 5 Days Qty: 10 4RF Primary Care Provider: Debby Cox Referrals: Debby Cox MD [Primary Care Provider] - 10-14 Days if not better Activity Restrictions/Additional Instructions: 1. Draw the alphabet with your foot 6 times a day 2. Apply ice 6-10 times a day 3. Wear air splint while you are up and about. 4. Elevate your toe above your nose to help reduce swelling.
[2023-10-30] MEDS: HYDROcodone Bitartrate/Apap 5/325 Tablet PO (15:08)
[2023-10-30 15:12] VITALS: BMI 53.5
--- OUTSIDE RECORDS SUMMARY | 2023-10-30 15:17 | XMS RPT_ITS | CCD ---
Author Name Unknown Address [address] [facility] [address] [place] [address] Organization [facility] Care Team Providers Care Controls Technician Name Role Phone Fabiola Arellano Unavailable Darlene Worrell Unavailable Unavailable Primary Care Provider Unavailabl e KAMALA VARELA, MAYRA Rasheed Primary Care Physician ROBBIE GTUIÉRREZ DO Attending Unavailable MAYRA WRAY MD Primary Care Unavailable TOÑITO VARELA, DR BOTELLO Attending Unavailab ESTEFANY Xiong MD Primary Care Unavailabl e Unavailable Primary Care [...] Facility 06-05-2023 19:26-0400 Body temperature 98.06 [degF] [facility] [employer] [facility] 06-05-2023 19:26-0400 Body weight 157.2 kg [facility] [employer] [facility] 06-05-2023 19:26-0400 Diastolic Blood Pressure Non-Invasive 95 1 [facility] [employer] [facility] 06-05-2023 19:26-0400 Heart rate 95 /min [facility] [employer] [facility] 06-05-2023 19:26-0400 Respiratory rate 20 /min [facility] [employer] [facility] 06-05-2023 19:26-0400 Systolic Blood Pressure Non-Invasive 162 1 [facility] [employer] [facility] 01-22-2022 12:13-0400 Body temperature 97.59 [degF] Ankit Son MD Work Phone: [facility] 01-22-2022 12:13-0400 Body weight 145.69 kg Ankit Son MD Work Phone: [facility] 01-22-2022 12:13-0400 Diastolic blood pressure 74 mm[Hg] Ankit Son MD Work Phone: [facility] 01-22-2022 12:13-0400 Heart rate 88 /min Ankit Son MD Work Phone: [facility] 01-22-2022 12:13-0400 Respiratory rate 20 /min Ankit Son MD Work Phone: [facility] 01-22-2022 12:13-0400 SaO2% (BldA) [Mass fraction] 98 % Ankit Son MD Work Phone: [facility] 01-22-2022 12:130400 Systolic blood pressure 120 mm[Hg] Ankit Son MD Work Phone: [facility] 05-18-2017 08:07-0400 BMI (Body Mass Index) 43.56 kg/m2 [facility] Work Phone: 05-18-2017 08:07-0400 Height 175.26 cm [facility] Work Phone: 05-18-2017 08:07-0400 Weight 133.81 kg [facility] Work Phone: Encounters Encounter Date Encounter Type Care Provider Facility Start: 07-02-2023 Telephone encounter [facility] Provider [facility] Procedures Date Procedure Procedure Detail Performing Clinician Tonsillectomy and adenoidectomy ROBBIE GUTIÉRREZ DO Plan of Treatment Date Care Activity Detail Author Start: 10-13-2023 Urine microalbumin profile DTaP,Tdap,Td Vaccine (7 - Td or Tdap) [facility] Start: 04-16-2023 Influenza vaccination Influenza Vaccine (#1) [facility] Start: 2022 Pap Testing Pap Testing [facility] Start: 08-16-2022 Depression Assessment Depression Assessment [facility] Start: 04-16-2022 Influenza vaccination INFLUENZA (Season Ended) [facility] Start: 10-10-2019 CHLAMYDIA SCREENING (-) CHLAMYDIA SCREENING (18-) [facility] Start: 10-10-2019 GC (GONORRHEA) SCREENING (18) GC (GONORRHEA) SCREENING (18) [facility] Start: 2017 Meningococcal B Vaccine: Consider Based On Risk (1 of 2 - Patient Seeks Protection) Meningococcal B Vaccine: Consider Based On Risk (1 of 2 - Patient Seeks Protection) [facility] Start: 07-15-2017 End: 07-15-2017 Appointment Appointment [facility] Work Phone: Start: 07-01-2017 End: 07-01-2017 Mri any jt lower extrem w/o contrast matrl MRI Joint Lower Extremity [facility] Work Phone: Start: 07-01-2017 End: 07-01-2017 Appointment Appointment [facility] Work Phone: Start: 05-19-2017 End: 05-19-2017 Physical Therapy General Physical Therapy [facility], [address] [place] [address], [id number] [facility] Work Phone: Start: 2015 PEDS TO ADULT TRANSITION ANNUAL ASSESSMENT PEDS TO ADULT TRANSITION ANNUAL ASSESSMENT [facility] Start: 2013 Adult depression screening assessment DEPRESSION SCREENING [facility] Start: 2013 PEDS TO ADULT TRANSITION INITIAL DISCUSSION PEDS TO ADULT TRANSITION INITIAL DISCUSSION [facility] Start: 2012 HPV VACCINE (1 - 2-dose series) HPV VACCINE (1 - 2-dose series) [facility] Start: 2012 Urine microalbumin profile DTAP,TDAP,TD (5 - Tdap) [facility] Start: 2011 MENINGOCOCCAL B: Consider based on risk (1 of 2 - Risk Bexsero 2-dose series) MENINGOCOCCAL B: Consider based on risk (1 of 2 - Risk Bexsero 2-dose series) [facility] Start: 2007 PNEUMOCOCCAL (1 - PCV) PNEUMOCOCCAL (1 - PCV) [facility] Start: 2007 Pneumococcal vaccination Pneumococcal Vaccine (1 - PCV) [facility] Start: 2006 COVID-19 VACCINE (#1) COVID-19 VACCINE (#1) [facility] Start: 04-08-2002 Covid-19 Vaccine (#1) Covid-19 Vaccine (#1) [facility] Immunizations Immunization Date Immunization Notes Care Provider Rosetta ramachandran 06-05-2023 tetanus toxoid, reduced diphtheria toxoid, and acellular pertussis vaccine, adsorbed ROBBIE GUTIÉRREZ DO [facility] 07-18-2019 influenza virus vaccine, unspecified formulation [facility] Provider [facility] 10-28-2006 diphtheria, tetanus toxoids and acellular pertussis vaccine Ankit Son MD Work Phone: [facility] Work Phone: 10-28-2006 measles, mumps, rubella, and varicella virus vaccine Ankit Son MD Work Phone: [facility] Work Phone: 11-10-2004 poliovirus vaccine, inactivated Ankit Son MD Work Phone: [facility] Work Phone: 11-07-2002 diphtheria, tetanus toxoids and pertussis vaccine Ankit Son MD Work Phone: [facility] Work Phone: 11-07-2002 measles, mumps and rubella virus vaccine Ankit Son MD Work Phone: [facility] Work Phone: 11-07-2002 varicella virus vaccine Ankit Son MD Work Phone: [facility] Work Phone: 07-27-2002 diphtheria, tetanus toxoids and pertussis vaccine Ankit Son MD Work Phone: [facility] Work Phone: 07-27-2002 haemophilus influenz ae type b vaccine, HbOC conjugate Ankit Son MD Work Phone: [facility] Work Phone: 07-27-2002 hepatitis B vaccine, pediatric or pediatric/adolescent dosage Ankit Son MD Work Phone: [facility] Work Phone: 07-27-2002 pneumococcal conjuga te vaccine, 7 valent Ankit Son MD Work Phone: [facility] Work Phone: 02-13-2002 diphtheria, tetanus toxoids and pertussis vaccine Ankit Son MD Work Phone: [facility] Work Phone: 02-13-2002 haemophilus influenz ae type b vaccine, HbOC conjugate Ankit Son MD Work Phone: [facility] Work Phone: 02-13-2002 poliovirus vaccine, inactivated Ankit Son MD Work Phone: [facility] Work Phone: 2001 diphtheria, tetanus toxoids and pertussis vaccine Ankit Son MD Work Phone: [facility] Work Phone: 2001 haemophilus influenz ae type b vaccine, HbOC conjugate Ankit Son MD Work Phone: [facility] Work Phone: 2001 hepatitis B vaccine, pediatric or pediatric/adolescent dosage Ankit Son MD Work Phone: [facility] Work Phone: 2001 pneumococcal conjuga te vaccine, 7 valent Ankit Son MD Work Phone: [facility] Work Phone: 2001 poliovirus vaccine, inactivated Ankit Son MD Work Phone: [facility] Work Phone: 2001 hepatitis B vaccine, pediatric or pediatric/adolescent dosage Ankit Son MD Work Phone: [facility] Work Phone: Payers Date Payer Category Payer Formerly [facility] [id number] 2022 Medicaid [employer] [id number] 2022-Present [phone] [address] [place] [id number] Medicaid [id number] 2018 Medicaid [facility] [employer] [id number] 2018-Present [phone] [address] [place] [address] Medicaid [id number] 2001 Unknown [id number] 2001 Unknown [id number] Social History Date Type Detail Facility Start: 10-10-2018 End: 03-26-2022 Tobacco smoking status NHIS Smokes tobacco daily [facility] History of tobacco use Cigarette Smoker [facility] Start: 10-10-2018 End: 03-26-2022 Tobacco use and exposure Smokeless tobacco non-user [facility] Start: 01-22-2022 End: 03-26-2022 Alcohol intake Current non-drinker of alcohol (finding) [facility] Start: 10-10-2018 End: 03-26-2022 Tobacco Comment [address] [facility] Start: 2001 Sex Assigned At Not on file [facility] Start: 01-12-2022 End: 01-22-2022 Exposure to SARS-CoV-2 (event) Not sure [facility] Start: 03-19-2021 Tobacco smoking status Light t obacco smoker (finding) [facility] Sex Assigned At Sex [facility] Start: 07-21-2020 End: 03-26-2022 History of Social function [facility] Start: 07-21-2020 End: 03-26-[address] [facility] National Score (1-10 0), lower number is lower risk Not on file [facility] Functional Status Date Assessment Result Facility 06-05-2023 Functional Status Independent [facility] 06-05-2023 Functional Status ID band on, Call device within reach, Bed in low position, Wheels locked, Upper/Half-Length side-rails up, Phone within reach, Safety level maintained [facility] Mental Status Date Assessment Result Facility 06-05-2023 Mental Status Orientation Oriented x 4 [facility] 06-05-2023 Mental Status [facility] Note 07-02-2023 Telephone Encounter - [place] Day - 07/02/2023 10:27 AM EST Note Date & Type Note Facility 07-02-2023 Miscellaneous Notes Formattin g of this note might be different from the original. Fax PCP ref call into the program, unable to leave voice mail do to not setup. Pt has not mychart setup. documented in this encounter [facility] Discharge instructions 06-05-2023 Note Date & [...] on June 05, 2023 20:20 EDT Encounter info:[id number], [facility] Emergency, 06/05/2023 - Contributor system:[email or web address] * Final Report * [id number] ORIGINAL EXAMINATION: THREE XRAY VIEWS OF THE [...] Document Reviewed: 08/03/2014 ExitCare Patient Information 2015 [employer] [facility]. This information is not intended to [...] wound Decreased movement around the injured area 6829-[address] [employer] [place] [address]. All rights reserved. This information is not intended as a substitute for professional medical care. Always follow your healthcare professional's instructions. Follow Up Care 06/05/2023 19:26:12 With:Go to emergency room if symptoms worsen Address:Unknown When:2-4 days With:MAYRA WRAY MD Address: [facility] [address] [place] [address]- When:2-4 days [facility] Emergency department Discharge summary 06-05-2023 Note Date & Type Note Facility 06-05-2023 Emergency departm ent Discharge summary Discharge Instructions Thank you for allowing [facility] to assist you with your healthcare needs. [...] 2-4 days Where: [facility] [address] [place] [address]- Allergies NKA Immunizations This Visit Given Vaccine [...] June 05, 2023 20:20 EDT Encounter info: [id number], Lisandra Phillips, 06/05/2023 - Contributor system: [email or web address] * Final Report * [id number] ORIGINAL EXAMINATION: THREE XRAY VIEWS OF THE [...] Document Reviewed: 08/03/2014 ExitCare Patient Information 2015 [employer]. This information is not intended to replace [...] wound Decreased movement around the injured area 4691-[address] [employer]. [address] [place] [address]. All rights reserved. This information is not intended as a substitute for professional medical care. Always follow your healthcare professional's instructions. Additional Information VACCINATE! IT SAVES LIVES! Members of the community who have not yet received the COVID-19 vaccine and would like to receive it can visit one of [facility] vaccine clinics. There are many vaccine clinic locations within the [facility]. For locations and available times, please visit www.[email or web address].gov/. It is important to note that some COVID mobile vaccine clinics are held outdoors and may be canceled in rainy or stormy conditions. To learn more about pediatric vaccinations (ages 5-11), we invite you to visit the [facility] webpage. [email or web address]/pages/ [email or web address]-[email or web address]-Frequently-Ask ed-Questions.html To learn more about the COVID-19 vaccine, we invite you to visit the CDC website for a list of frequently asked questions. https://www.cdc.gov/coronavirus/2019- ncov/vaccines/faq.html [facility] Patient Portal Access Instructions: Stay connected with your healthcare team and access your personal medical information anytime with the [facility] Patient Portal. If you would like a full copy of your medical records please contact the [facility] Medical Records Department Wednesday through Wednesday between 8a.m. and 4:30p.m. Please follow the directions below to access the portal: 1.Access the email account you provided upon [facility].2.Look for an invitation email from [facility].3.Open the email and access the invitation link: Accept Invitation to [facility]4.Fill in the required seth to create your account. Sign into www.The [employer] with your username and password that you [...] you will allow to register on the [facility] Patient Portal for access to your information. You can also access the [facility] Patient Portal on the [employer] kai. Simply click on Health Records under Health Data and then click on the [employer] logo. HOW TO SAFELY DISPOSE OF PRESCRIPTION [...] Call your local pharmacy or go to http://bit.setObject/1V4Dh9i to find one close to you.3.Make use of household items: Use cat litter or old coffee grounds to dispose medications if other options are not available. Mix your drugs with these household products, seal them in an airtight container and throw it into the garbage. Call [facility]: [phone] to be sure your drugs can be [...] aware that I should contact my doctor. Patient/Electrician Front Signature: __ Date/Time: Relationship to Patient: Witness Name/Signature: Date/Time: [facility] Clinical Note 06-05-2023 Note Date & [...] Date: 06/05/2023 8:32:25 PM Ordering Provider: ROBBIE [facility] Progress note 03-26-2022 Note Date & Type Note Facility 03-26-2022 Note HNO ID: [id number] Author: Isela Perez APRN.EXECUTIVE VICE PRESIDENT AND CHIEF FINANCIAL OFFICER Service: ? Author Type: Nurse Practitioner Type: Progress Notes Filed: 03/26/2022 6:45 PM Note Text: Subjective The history is provided by the patient. No piece work inspector was used. HPI Rosalind Chavez is a [...] No PAST MEDICAL HISTORY Diagnosis Date - [facility] - PAST MEDICAL HISTORY OF heart murmur I have confirmed and edited as necessary, the [facility] Review of Systems Constitutional: Positive for malaise/fatigue. [...] detail warranting prompt ER evaluation. Isela Perez APRN.[facility] Progress note 01-22-2022 Note Date & Type Note Facility 01-22-2022 Note HNO ID: [id number] Author: Ankit Son MD Service: ? Author Type: Physician Type: Progress Notes Filed: 01/22/2022 12:37 PM Note Text: Patient presents with: Pain: Pt reported vaginal delivery 12/23/2021, SOB onset w/ delivery [facility] ER Visit x2wks prior, denied [...] room after this recommendation. Ankit Son MD [facility] History of Present illness Narrative 01-22-2022 Ankit Son MD - 01/22/2022 12:17 PM EDT Note Date & Type Note Facility 01-22-2022 History of Presen t illness Narrative Patient presents with: Pain: Pt reported vaginal delivery 12/23/2021, SOB onset w/ delivery [facility] ER Visit x2wks prior, denied [...] Ankit Son MD documented in this encounter [facility] Evaluation + Plan note Note Date & Type Note Facility Evaluation + Plan note No data available for this section [facility] Evaluation note Note Date & Type Note Facility documented in this encounter [facility] Summary Purpose Family History No Family [...] DATE CREATED AUTHOR AUTHOR'S ORGANIZ ATION 08/19/2021 [facility] DATE CREATED AUTHOR AUTHOR'S ORGANIZ ATION 03/27/2022 [facility] DATE CREATED AUTHOR AUTHOR'S ORGANIZ ATION 06/24/2023 [facility] ([place]) DATE CREATED AUTHOR AUTHOR'S ORGANIZ ATION 07/04/2023 [facility] Source Comments (unrecognize d section and content) In the event this informatio n is protected by the Federal Confidentiality of Alcohol and Drug Abuse Patient Records regulations: The Federal rules restrict any use of the information to criminally investigate or prosecute any alcohol or drug abuse patient.[facility] the event this information is protected by the Federal Confidentiality of Alcohol and Drug Abuse Patient Records regulations: The Federal rules restrict any use of the information to criminally investigate or prosecute any alcohol or drug abuse patient.[facility] Reason for Visit (unrecogniz ed section and content) Reason Comments External Referrals/resources Patient Care team informatio n (unrecognized section and content) Care Team Personnel Name: MAYRA WRAY MD Member Role: Primary Care Physician Address: Address: [facility] [address] [place] [id number] Name: ROBBIE GUTIÉRREZ DO Position: ED Physician Member Role: Attending Physician Address: Address: [address] [place] [id number] Care Team Related Persons Name: MOI CHAVEZ Address: Home [address] [address] Name: SOHA WANG Address: Home [address] [place] [address] FOR RECORDS PERTAINING TO PATIENTS WHO ARE [...] BE BASED ON THE PRIMARY CLINICAL RECORDS. [facility]. provides no warranty or guarantee of the accuracy or completeness of information in this document.
[2023-10-30 16:03] VITALS: RESP 16
--- NOTE | 2023-10-30 16:13 | ED.RN ---
The nurse educated the patient that crutches could hinder the healing of her sprained ankle and prolong the process. The physician readdressed the patient's concern for the need of crutches and reiterated the need to ice, elevate, and continue the mobility of the ankle. He also encouraged the patient to splint her ankle, with the air-cast provided, when ambulating.
--- NOTE | 2023-10-30 16:13 | ED.RN ---
PTS MALE FAMILY MEMBER, CLAIMING TO BE HER BROTHER, CALLED IN TO SPEAK TO CHARGE NURSE FOR THE SECOND TIME. THIS RN PICKED UP THE CALL THAT WAS ON ON HOLD. AT THIS POINT PT HAD BEEN DISCHARGED OUT OF THE DEPARTMENT WHERE SHE WAS WHEELED TO A CAR BY THE PRIMARY RN. HE STATES WHY ARE YOU REFUSING HER CRUTCHES WHEN SHE FRACTURED HER FOOT . THIS RN STATES THAT I CANNOT DISCLOSE HER MEDICAL INFORMATION OVER THE PHONE BUT PER THE PHYSICIAN CRUTCHES WERE NOT INDICATED FOR HER INJURY. SHE WAS PROVIDED THE SUPPORTIVE BRACE THAT WAS INDICATED. HE STATES SHE CAN'T WALK, SO ARE YOU GOING TO JUST WHEEL HER OUT THERE AND LEAVE HER . WHEN ASKED BY THIS RN IF HE IS HERE, PRESENT AT THE HOSPITAL, HE STATES NO. HE IS INFORMED SHE DID WALK WITNESSED BY STAFF MEMBERS WHILE HERE. HE ASKS SPECIFICALLY FOR MY NAME WHICH I DISCLOSE MY FIRST NAME TO WHICH HE STATES THAT HE WILL BE IN CONTACT WITH ME AND THE ER DOCTOR WHEN SHE INJURES HERSELF FURTHER. HE FINISHES PHONE CALL WITH HAVE THE DAY YOU DESERVE. WHILE HANGING UP.
--- NOTE | 2023-10-30 16:13 | ED.RN ---
pt took steps from wc to bed. painful with wt bearing but able to do so
--- NOTE | 2023-10-30 16:15 | ED.RN ---
stirup splint to left ankle. educated on swelling/inflammatory process. and pain correlation, encouraging use of frequent ice and ibuprofen. pt states she can not walk. pt was able to ambulated few steps from wc to bed, with pain but was able to do successfully. pt requesting cruthces. dr Boyle aware and education that crutches are not indicated for sprains per pt. pt sucessfully got into wc and then from wc to car. with nursing standing by to observe for safety, but pt did on own.
--- NOTE | 2023-10-30 16:17 | ED.RN ---
RECEIVED CALL FROM PT BROTHER @1600 ASKING TO SPEAK TO A DETACHER SITECORE DEVELOPER. WHEN ASKED WHAT IT IS REGARDING, HE STATED, NEVER MIND. MY SISTER JUST TEXTED ME AND SAID SHE'S GETTING CRUTCHES. I WAS GOING TO ASK WHY SOMEONE WITH A FOOT INJURY WOULDN'T GET CRUTCHES OR WHAT THAT THOUGHT PROCESS IS. BUT NEVER MIND. I THEN ASKED IF HE WAS SURE HE DID NOT WANT TO SPEAK WITH ANYONE, HE REITERATED WHAT HE SAID THE FIRST TIME AND ASSURED ME HE DID NOT NEED TO SPEAK WITH ANYONE. I TOLD HIM TO HAVE A GOOD DAY, HE SAID THANK YOU AND HUNG UP.
== END 2023-10-30 16:17 | disposition home or self-care (01) ==
PROVIDERS: Emergency Provider Emergency Medicine; PCP Internal Medicine; Visit Provider Emergency Medicine
DX: S93.412A Sprain of calcaneofibular ligament of left ankle, initial encounter (principal); F43.10 Post-traumatic stress disorder, unspecified; F17.210 Nicotine dependence, cigarettes, uncomplicated; X58.XXXA Exposure to other specified factors, initial encounter; Z79.899 Other long term (current) drug therapy; Z79.3 Long term (current) use of hormonal contraceptives; Z90.49 Acquired absence of other specified parts of digestive tract; F17.290 Nicotine dependence, other tobacco product, uncomplicated; F41.8 Other specified anxiety disorders
CPT/HCPCS: 73610; 99283

== ENCOUNTER 2024-11-06 00:56 | Emergency (ER) | payer MEDICAID, SELFPAY ==
[2024-11-06 00:57] VITALS: BP 149/132; PULSE 106; RESP 18; TEMP 35.7; O2SAT 99; BMI 44.6
--- NOTE | 2024-11-06 01:43 | CT_ITS ---
PROCEDURE: BRAIN/HEAD WITHOUT CONTRAST 11/06/2024 REASON FOR EXAM: SEIZURE-LIKE ACTIVITY TECHNIQUE: Noncontrast head CT with coronal and sagittal reformatted images COMPARISON: 04/27/2020 FINDINGS: No intracranial hemorrhage or CT evidence of large vascular territory acute infarct. There is again note at the right convexity of an extra-axial focal calcification with a broad base along the inner table currently measuring 1.5 x 0.6 x 0.7 cm, previously 1 x 0.4 x 0.4 cm, increased in size since 2019. Localized direct subjacent mass effect to the adjacent cortex is noted however no CT evidence of obvious associated parenchymal edema. The ortiz-white differentiation appears preserved. The ventricles are unchanged in size and remain midline. The visualized paranasal sinuses, mastoids and orbits appear within limits. CT/Brain/Head without Contrast IMPRESSION: No intracranial hemorrhage or CT evidence of large vascular territory acute inf arct. There is again note at the right convexity of an extra-axial focal calcificatio n with a broad base along the inner table currently measuring 1.5 x 0.6 x 0.7 cm, previously 1 x 0.4 x 0.4 cm, a non rapi d increase in size since 2019. Consideration would include calcified meningioma. At this location it is conceivable that th is may be a potential seizure focus, clinically correlate and recommend further workup. Reading Location: [id number]
[2024-11-06 02:16] VITALS: BP 177/91
[2024-11-06 02:21] LABS: Absolute Lymphocyte Count 3.16 X10^3/uL (0.83-4.51); Absolute Neutrophil Count 6.6 X10^3/uL (2.0-7.7); Basophil# 0.04 X10^3/uL; Basophil% 0.4 % (0-1); Eosinophil# 0.08 X10^3/uL; Eosinophils% 0.8 % (0-5); Hematocrit 44.4 % (37-47); Hemoglobin 14.4 g/dL (12.0-15.0); Lymphocyte # 3.16 X10^3/ul (0.83-4.51); Lymphocyte % 29.7 % (19-41); Mean Corp Hgb Conc 32.4 g/dL (32-36); Mean Corpuscular Hgb 24.6 pg (27.0-32.0); Mean Corpuscular Volume 75.8 fL (81-99); Mean Platelet Vol. 10.3 fl (6.2-12.0); Monocyte# 0.68 X10^3/uL; Monocyte% 6.4 % (0-10); NRBC Flagged by Analyzer 0 % (0-5); Neutrophil # 6.64 X10^3/uL (2.7-7.7); Neutrophil % 62.3 % (47-70); Platelet Count 273 K/mm3 (150-450); RBC Distribution Width CV 14.7 % (11.6-14.6); RBC Distribution Width SD 40.2 fl (35.1-43.9); Red Blood Count 5.86 M/mm3 (4.2-5.4); White Blood Count 10.6 K/mm3 (4.4-11.0)
[2024-11-06 02:31] LABS: Internal QC Validated? YES +Cl - CLEAR BKGD; Pregnancy, Serum, hCG Quali. NEGATIVE Negative
[2024-11-06] MEDS: Famotidine 200 MG/20 ML MDV 20 MG in 0.9% Normal Saline (Pres. free 8 ML 300 MG IV (02:32)
[2024-11-06] MEDS: Mag Hydrox/Al Hydrox/Simeth 30 ML UDC PO (02:32)
[2024-11-06] MEDS: Lidocaine 2% Viscous15 ML UDC 15 ML PO (02:32)
[2024-11-06 02:37] LABS: AST(SGOT) 35 U/L (<=31); Alanine Aminotransfer ALT/SGPT 46 U/L (<=34); Albumin, Serum 4.2 g/dL (3.5-5.0); Alkaline Phosphatase 85 U/L (35-104); Anion Gap 12 (5-15); BUN 9 mg/dL (4-19); BUN/Creat Ratio 12.2 RATIO (10-20); Bilirubin, Direct 0.37 mg/dL (0.00-0.30); Calcium,Total 9.2 mg/dL (7.6-11.0); Carbon Dioxide 23.1 mmol/L (21.0-32.0); Chloride 104 mmol/L (98-108); Creatinine, Serum 0.75 mg/dL (0.70-1.20); EST Glomerular Filtration Rate 114 (>60); Estimated Creatinine Clearance 174.15 ml/min (50-250); Globulin 3.3 g/dL (2.2-4.2); Glucose 82 mg/dL (70-99); Lipase 18 U/L (13-75); Magnesium 2.2 mg/dL (1.5-2.2); Potassium 3.7 mmol/L (3.3-5.1); Protein, Total 7.6 g/dL (5.9-8.4); Sodium Level 139 mmol/L (133-145); Total Bilirubin 0.76 mg/dL (0.00-1.30)
--- NOTE | 2024-11-06 02:50 | RAD_ITS ---
PROCEDURE: ACUTE ABDOMEN INC CHEST 11/06/2024 REASON FOR EXAM: ABD PAIN TECHNIQUE: PA view of the chest, 2 upright and 2 supine images to include the entire abdomen and pelvis, 5 total images COMPARISON: Chest radiograph 03/11/2023 FINDINGS: The lungs appear clear. The cardiac and mediastinal contours appear within limits. No free air identified. Overall there is a paucity of bowel gas. Indeterminate bowel-gas pattern. No gaseous distention of bowel present. No abnormal abdominal calcifications identified. The visualized osseous structures appear within limits. RAD/Acute Abdomen Inc Chest IMPRESSION: No free air identified. Overall there is a paucity of bowel gas. Indeterminat e bowel-gas pattern. No gaseous distention of bowel present. Reading Location: [id number]
[2024-11-06 02:59] LABS: Lactic Acid < 1.0 mmol/L (0.0-2.0)
[2024-11-06 03:00] VITALS: BP 169/78; PULSE 88; O2SAT 100
[2024-11-06] MEDS: 0.9% Normal Saline (1000mL) 1,000 ML 999 ML IV (03:21)
--- NOTE | 2024-11-06 03:38 | EDS_ITS ---
HPI History of Present Illness Chief Complaint: Seizure Informant: patient and EMS Narrative Narrative: Patient is a 24-year-old female with past medical history anxiety and depression as well as ADHD. She states that this evening she had sexual intercourse with her boyfriend. She states that 20 to 30 minutes after the sexual activity she developed some abdominal cramping and then according to the boyfriend the patient fell to the ground and had a seizure. Patient denies any history of seizure activity and she states that she awoke and knew who she was and where she was at indicating no postictal phase. However with syncope versus seizure versus potential abdominal trauma or infection she presents for evaluation. She states there is no vaginal discharge she has low concern for she denies any vaginal bleeding PFSH [facility] Medical History Wears glasses Hx of blood diseases Genital herpes affecting Anxiety Depression Abnormal glucose affecting Left lower quadrant pain COVID-19 Marijuana abuse History of asthma Chest pain Fatigue Anemia Asthma ADHD Home Medications ?Medication ?Instructions ?Recorded ?Last Taken ?Type norgestimate 0.25 mg-ethinyl 1 tab PO DAILY #84 tabs 0 09/20/23 Unknown Rx estradiol 35 mcg tablet (Sprintec (28)) lidocaine 5 % topical ointment 1 applic topical TID [place] N pain 7 10/20/23 Unknown Rx days #30 grams valacyclovir 500 mg tablet 500 mg PO BID 5 days #10 ta bs 10/20/23 Unknown Rx desvenlafaxine succinate 25 mg 25 mg PO DAILY #30 tabs 01/27/24 Unknown Rx tablet,extended release 24 hr (Pristiq) omeprazole 20 mg capsule,delayed 20 mg PO DAILY #30 ca ps 01/27/24 Unknown Rx release ondansetron 4 mg disintegrating 4 mg PO Q8H PRN nausea and 01/27/24 Unknown Rx tablet vomiting #30 tabs varenicline tartrate 0.5 mg (11)-1 See Rx Instructions PO PER PKG DIR 01/27/24 Unknown Rx mg (42) tablets in a dose pack #53 tabs (Chantix Starting Month Box) Allergy/AdvReac Type Severity Reaction Status Date / Time No Known Allergies Allergy Verified 11/06/24 00:57 Family History Mother Lupus Sjogrens syndrome Father Sleep apnea Grandfather Brain cancer Seizures Grandmother COPD (chronic obstructive pulmonary disease) Leukemia Surgical History S/P cholecystectomy Status post vaginal delivery Status post vaginal delivery S/P left knee arthroscopy S/P tonsillectomy Social History household members: children current occupational status: unemployed pets and animals: Yes pets and animals: dog(s) Smoking Status: Current every day smoker tobacco type: cigarettes and e- cigarettes Electronic Cigarette Use: with nicotine second hand exposure: Yes quit status: considering quitting alcohol intake: current alcohol intake frequency: holidays/special occasions only substance use type: former substance user and marijuana seatbelt use: always do you feel safe at home: Yes additional social history: BF- [employer] ROS ROS ED Constitutional Constitutional ED: Denies chills or fever(s) Eyes Eyes: Denies blurry vision or change in vision ENT ENT ED: Denies sore throat Cardiovascular Cardiovascular: Denies chest pain, palpitations or racing heartbeat Respiratory/Chest Respiratory/Chest: Denies cough or dyspnea Gastrointestinal Gastrointestinal: Reports abdominal pain; Denies diarrhea, nausea or vomiting Genitourinary Genitourinary ED: Denies dysuria, hematuria or urinary frequency Musculoskeletal Musculoskeletal: Denies back pain or neck pain Integumentary Denies rash Neurologic Neurologic: Denies headache(s) Hematologic/Lymphatic Hematologic/Lymphatic: Denies easy bleeding or easy bruising EXAM Physical Exam Const Vital Signs: 11/06/24 00:57 11/06/24 02:16 11/06/24 03:00 Temperature 96.3 F L Temperature Source Temporal Pulse Rate 106 H 88 Respiratory Rate 18 Blood Pressure 149/132 H 177/91 H 169/78 H Blood Pressure Mean 137 119 108 Pulse Ox 99 100 Positive well nourished, well developed and obese General Appearance ED: well developed; Negative for pallor Nutritional Appearance: obese HEENT Reports moist mucous membranes HEENT Narrative: No tongue or lip lip swelling no oral lesions no airway edema or compromise No findings in the posterior pharynx to suggest infection No tongue or cheek biting to suggest seizure Head is normocephalic and atraumatic Eyes PERRL and EOMs intact bilaterally General Eye ED: Negative for pale conjunctiva or scleral icterus Neck supple Neck Narrative: No bony deformity or step-off of the cervical spine no midline tenderness to palpation No nuchal rigidity or meningeal signs Chest Wall palpation of chest normal Resp normal respiratory effort and clear to auscultation bilaterally Cardio regular rate and regular rhythm Rate: other Other Details: Heart is regular rate and rhythm without murmurs rubs or gallop Radial and carotid pulses are equal and symmetric No carotid bruit noted GI non-distended and no masses GI Narrative: Abdomen is soft and nondistended with normal active bowel sounds. Patient has pain with palpation across the upper abdomen diffusely without voluntary guarding or rigidity or pulsatile mass Auscultation: normoactive bowel sounds Palpation: soft Narrative: Patient deferred Extremity normal to inspection Extremity Narrative: No asymmetric edema no pitting edema negative Homans' sign bilaterally No bony deformity or joint effusion noted Neuro oriented x3, CN's II-XII intact bilaterally and no sensory deficits noted Neuro Narrative: GCS of 15 Cranial nerves II through XII are grossly intact there are no focal neurologic deficit No pronator drift no dysmetria no truncal ataxia NIH stroke scale score of 0 Sensorium / Orientation: alert Motor Exam: strength 5/5 throughout Psych Mood & Affect: anxious Skin no rashes or lesions noted and no wounds Skin Narrative: No abrasions or ecchymosis noted General Skin Exam: Negative for jaundice or pallor MDM MDM MDM Narrative Medical decision making narrative: Patient arrived to the ER hypertensive otherwise with stable vitals. There was question of syncope versus seizure activity. The patient denied any postictal phase and she did not have tongue or cheek biting and therefore my concern for seizure activity is low. However in order to assess for potential bleed such as a subarachnoid or subdural hemorrhage or mass as a cause of syncope or seizure head CT was obtained. With pain in the upper abdomen patient could have acute pancreatitis as she does admit to drinking alcohol Wednesday night into Wednesday morning versus gastritis and with recent sexual intercourse there is concern for cervical laceration versus vaginal perforation. Basic blood work was obtained. Patient's white count is normal and there is no left shift going against an infectious process. She has no signs of acute blood loss anemia. No findings of acute kidney injury or clinically significant electrolyte abnormality. Lactic acid is normal also going against seizure activity. Lipase is normal going against acute pancreatitis. test is negative going against a complication. The patient is at revealed perforation and there was no signs of obstruction. The patient did have hiccups upon arrival and reported they have been present for multiple hours and this could be a cause of her upper abdominal discomfort. Secondary to this she was given IM Thorazine. Following this she had resolution of her hiccups as well as her abdominal pain. The patient had no seizure activity while in the ER or bouts of syncope. Therefore at this time with the patient's overall negative workup and improvement of symptoms I do not feel that there is need for further evaluation. We did discuss obtaining the pelvic exam to ensure there is no vaginal hematoma vaginal laceration/cervical laceration but patient denies vaginal pain or bleeding and the pain did not occur with intercourse just roughly 20 to 30 minutes after and therefore she does not wish to have a pelvic exam at this time. Therefore as patient does not have signs of acute infection perforation or obstruction no signs of continued seizure activity or cardiac dysrhythmia I do not feel there is need for further workup and she is otherwise safe for discharge History & Record Review Discussion w/independent historian: Patient Lab Data Attestation: I reviewed the patient's lab results. Labs: Laboratory Results - last 24 hr 11/06/24 02:13 WBC 10.6 RBC 5.86 H Hgb 14.4 Hct 44.4 MCV 75.8 L MCH 24.6 L MCHC 32.4 RDW Std Deviation 40.2 RDW Coeff of Nancy 14.7 H Plt Count 273 MPV 10.3 Immature Gran % (Auto) 0.400 Neut % (Auto) 62.3 Lymph % (Auto) 29.7 [place] % (Auto) 6.4 Eos % (Auto) 0.8 Baso % (Auto) 0.4 Absolute Neuts (auto) 6.6 Absolute Lymphs (auto) 3.16 Nucleated RBC % 0 Sodium 139 Potassium 3.7 Chloride 104 Carbon Dioxide 23.1 Anion Gap 12 BUN 9 Creatinine 0.75 Estim Creat Clear Calc 174.15 Est GFR (MDRD) Non-Af 114 BUN/Creatinine Ratio 12.2 Glucose 82 Lactic Acid < 1.0 Calcium 9.2 Magnesium 2.2 Total Bilirubin 0.76 Direct Bilirubin 0.37 H AST 35 H ALT 46 H Alkaline Phosphatase 85 Total Protein 7.6 Albumin 4.2 Globulin 3.3 Lipase 18 Serum , Qual NEGATIVE Radiography Diagnostic Testing: Clinical Impression(s) from Imaging Studies Brain CT 11/06/24 01:43 IMPRESSION: No intracranial hemorrhage or CT evidence of large vascular territory acute infarct. There is again note at the right convexity of an extra-axial focal calcification with a broad base along the inner table currently measuring 1.5 x 0.6 x 0.7 cm, previously 1 x 0.4 x 0.4 cm, a non rapid increase in size since 2019. Consideration would include calcified meningioma. At this location it is conceivable that this may be a potential seizure focus, clinically correlate and recommend further workup. Reading Location: [facility] Acute Abdomen Series 11/06/24 02:50 IMPRESSION: No free air identified. Overall there is a paucity of bowel gas. Indeterminate bowel-gas pattern. No gaseous distention of bowel present. Reading Location: [facility] Acute abdominal series with 1 view chest as interpreted by the emergency medicine physician reveals a nonspecific nonobstructive bowel gas pattern without free air/perforation. Chest x-ray component reveals no acute infiltrate or pneumothorax Discharge Plan Triage Chief Complaint: Seizure ED Provider: Antolin Steward Dx/Rx/DC Orders Clinical Impression: Seizure-like activity, Nonspecific abdominal pain, Anxiety and depression, ADHD Instructions: Seizure Affects on Body, Abdominal Pain Prescriptions: No Action norgestimate-ethinyl estradiol [Sprintec (28)] 0.25-35 mg-mcg tablet 1 tab PO DAILY Qty: 84 4RF desvenlafaxine succinate [Pristiq] 25 mg tablet extended release 24 hr 25 mg PO DAILY Qty: 30 1RF omeprazole 20 mg capsule,delayed release(DR/EC) 20 mg PO DAILY Qty: 30 1RF ondansetron 4 mg tablet,disintegrating 4 mg PO Q8H PRN (Reason: nausea and vomiting) Qty: 30 0RF varenicline tartrate [Chantix Starting Month Box] 0.5 mg (11)- 1 mg (42) tablets,dose pack See Rx Instructions PO PER PKG DIR Qty: 53 0RF Rx Instructions: PO PER PKG DIR lidocaine 5 % ointment 1 applic topical TID PRN (Reason: pain) 7 Days Qty: 30 3RF valacyclovir 500 mg tablet 500 mg PO BID 5 Days Qty: 10 4RF Primary Care Provider: Debby Cox Referrals: Debby Cox MD [Primary Care Provider] - Carlos Eduardo Olivas MD [Non-Staff -Ordering Privileges] - (Questionable seizure activity) Activity Restrictions/Additional Instructions: Please do not drive or operate heavy machinery until you are reevaluated by a neurologist based on the potential for seizure activity this evening. Also follow-up with them regarding the calcified area in your brain noted on CT scan. Otherwise continue all of your home medication as directed by your doctor and return to the ER should you have any further concerns Print Language: Lao Disposition Disposition: Home, Self Care Discharge Date/Time: 11/06/24 03:51
== END 2024-11-06 03:51 | disposition home or self-care (01) ==
PROVIDERS: Emergency Provider Emergency Medicine; PCP Internal Medicine; Visit Provider Emergency Medicine
DX: R56.9 Unspecified convulsions (principal); F17.210 Nicotine dependence, cigarettes, uncomplicated; F41.9 Anxiety disorder, unspecified; Z82.5 Family history of asthma and other chronic lower respiratory diseases; R10.9 Unspecified abdominal pain; F90.9 Attention-deficit hyperactivity disorder, unspecified type; F32.A Depression, unspecified; Z86.16 Personal history of COVID-19; Z90.49 Acquired absence of other specified parts of digestive tract; E66.9 Obesity, unspecified
CPT/HCPCS: 70450; 74022; 80048; 80076; 83605; 83690; 83735; 84703; 85025; 96372; 99285; A4216

== ENCOUNTER 2025-02-16 02:04 | Emergency (ER) | payer MEDICAID, SELFPAY ==
[2025-02-16 02:05] VITALS: BP 139/82; PULSE 89; RESP 20; TEMP 36.8; O2SAT 100; BMI 41.2
[2025-02-16 02:08] VITALS: BP 139/82; PULSE 78; RESP 20; TEMP 36.8; O2SAT 100
[2025-02-16 02:38] VITALS: BP 119/70; PULSE 85; RESP 16; TEMP 36.8; O2SAT 100
== END 2025-02-16 02:39 | disposition home or self-care (01) ==
PROVIDERS: Emergency Provider Emergency Medicine; PCP Internal Medicine; Visit Provider Emergency Medicine
DX: R07.89 Other chest pain (principal); F41.9 Anxiety disorder, unspecified; F17.210 Nicotine dependence, cigarettes, uncomplicated; R06.00 Dyspnea, unspecified; F90.9 Attention-deficit hyperactivity disorder, unspecified type; F43.10 Post-traumatic stress disorder, unspecified; F32.A Depression, unspecified; J45.909 Unspecified asthma, uncomplicated; F17.290 Nicotine dependence, other tobacco product, uncomplicated; D56.3 Thalassemia minor
CPT/HCPCS: 93005; 99282; A4216